=== PATIENT | female | born 1945 | race Caucasian/White ===

== ENCOUNTER 2019-04-16 14:42 | Emergency (ER) | payer MEDICARE, OTHER ==
--- NOTE | 2019-04-16 15:05 | ERPHSYRPT ---
- History of Present Illness Time Seen by Provider: 04/16/19 14:55 Source: patient, family Exam Limitations: no limitations Physician History: 73 y/o white female with h/o htn presents with one day h/o mild suprapubic pain , painful urination and urinary frequency. pt was a little dizzy earlier today. better now. Timing/Duration: yesterday Activites at Onset: none Quality: burning, pressure (suprapubic) Onset Location: suprapubic Pain Radiation: none Severity of Pain-Max: mild Severity of Pain-Current: mild Sexual intercourse history: non-contributory Modifying Factors: Improves With: nothing Associated Symptoms: dysuria, urinary frequency, other (mild dizziness that has resolved) Allergies/Adverse Reactions: No Known Drug Allergies Allergy (Verified 04/16/19 14:52) Home Medications: Carbamazepine 200 mg PO DAILY 06/26/13 [History] Chlorthalidone 25 mg PO DAILY 06/26/13 [History] Esomeprazole Magnesium [Nexium] 40 mg PO DAILY 06/26/13 [History] Meloxicam 7.5 mg [Mobic 7.5 MG] 7.5 mg PO BID 06/26/13 [History] Metoprolol Succinate 25 mg Xl* [Toprol-Xl 25MG Tablets] 25 mg PO DAILY [History] Potassium Chloride [Klor-Con 10] 10 meq PO BID 06/26/13 [History] Hx Tetanus, Diphtheria Vaccination/Date Given: No Hx Influenza Vaccination/Date Given: No Hx Pneumococcal Vaccination/Date Given: No - Review of Systems Constitutional: No Symptoms Eyes: No Symptoms Ears, Nose, & Throat: No Symptoms Respiratory: No Symptoms Cardiac: No Symptoms Abdominal/Gastrointestinal: No Symptoms Genitourinary Symptoms: Dysuria, Frequency Musculoskeletal: No Symptoms Skin: No Symptoms Neurological: No Symptoms Psychological: No Symptoms Endocrine: No Symptoms Hematologic/Lymphatic: No Symptoms Immunological/Allergic: No Symptoms All Other Systems: Reviewed and Negative - Past Medical History Pertinent Past Medical History: Yes Neurological History: Migraines ENT History: No Pertinent History Cardiac History: Hypertension, Other (history of low potassium) Respiratory History: No Pertinent History Endocrine Medical History: No Pertinent History Musculoskeletal History: No Pertinent History GI Medical History: Gallbladder Disease History: No Pertinent History Psycho-Social History: No Pertinent History Female Reproductive Disorders: Fibroids Other Medical History: BURSISTIS IN HIPS - Past Surgical History Past Surgical History: Yes Neuro Surgical History: No Pertinent History Cardiac: No Pertinent History Respiratory: No Pertinent History Gastrointestinal: Cholecystectomy Genitourinary: No Pertinent History Musculoskeletal: Joint Replacement, Orthopedic Surgery Female Surgical History: Hysterectomy Other Surgical History: KNEE REPLACEMENTS - Social History Smoking Status: Never smoker Exposure to second hand smoke: Yes Drug Use: none Patient Lives Alone: No - Nursing Vital Signs Nursing Vital Signs: Initial Vital Signs Temperature 97.3 F 04/16/19 14:44 Pulse Rate 100 H 04/16/19 14:44 Respiratory Rate 20 04/16/19 14:44 Blood Pressure 178/90 04/16/19 14:44 O2 Sat by Pulse Oximetry 97 04/16/19 14:44 Pain Scale Pain Intensity 4 - Physical Exam General Appearance: no apparent distress, alert, anxiety Eye Exam: PERRL/EOMI, eyes nml inspection Ears, Nose, Throat Exam: normal ENT inspection, moist mucous membranes Neck Exam: normal inspection, non-tender, supple, full range of motion Respiratory Exam: normal breath sounds, lungs clear, airway intact, No chest tenderness, No respiratory distress Cardiovascular Exam: regular rate/rhythm, normal heart sounds, normal peripheral pulses Gastrointestinal/Abdomen Exam: soft, normal bowel sounds, No tenderness Pelvic Exam: not done Rectal Exam: not done Back Exam: normal inspection, normal range of motion, CVA tenderness Extremity Exam: normal inspection, normal range of motion, pelvis stable Neurologic Exam: alert, oriented x 3, 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, 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 Skin Exam: normal color, warm, dry Lymphatic Exam: No adenopathy SpO2 Interpretation: normal O2 Delivery: Room Air Ordered Tests: Active Orders 24 hr Category Date Time Status CULTURE,URINE Stat Lab 04/16/19 15:10 Received UA W/RFX UR CULTURE Stat Lab 04/16/19 15:10 Completed Medication Summary Discontinued Medications Generic Name Dose Route Start Last Admin Trade Name Freq PRN Reason Stop Dose Admin Ceftriaxone Sodium 1,000 mg 04/16/19 15:49 Rocephin 1000 Mg Inj IM 04/16/19 15:50 STAT ONE Trimethoprim/Sulfamethoxazole 1 tab 04/16/19 15:49 Bactrim Ds Tablet PO 04/16/19 15:50 STAT ONE Lab/Rad Data: Laboratory Results 04/16/19 Range/Units 15:10 Urine Color SUSHIL (YELLOW) Urine Appearance SLIGHTLY CLOUDY (CLEAR) Urine pH 8.0 (5-6) Ur Specific [place] 1.008 (1.005-1.025) Urine Protein NEGATIVE (Negative) Urine Ketones NEGATIVE (NEGATIVE) Urine Blood MODERATE (0-5) Nicho/ul Urine Nitrite POSITIVE (NEGATIVE) Urine Bilirubin NEGATIVE (NEGATIVE) Urine Urobilinogen NEGATIVE (0-1) mg/dL Ur Leukocyte Esterase LARGE (NEGATIVE) Urine WBC (Auto) >100 (0-5) /HPF Urine RBC (Auto) 16-25 (0-2) /HPF U Epithel Cells (Auto) NONE (FEW) /HPF Urine Bacteria (Auto) FEW (NEGATIVE) /HPF Urine Culture Reflexed YES (NO) Urine Glucose NEGATIVE (NEGATIVE) mg/dL - Progress Progress: unchanged Air Movement: good Blood Culture(s) Obtained: No Antibiotics given: Yes Counseled pt/family regarding: lab results, diagnosis, need for follow-up - Departure Departure Disposition: Home Clinical Impression: UTI (urinary tract infection) Condition: Good Critical Care Time: No Referrals: MORGAN KUMAR MD [Primary Care Provider] - Additional Instructions: drink plenty of fluids. follow up with primary doctor for persistent symptoms. return to ED if symptoms worsen Prescriptions: Smz/Tmp Ds Tablet [Bactrim Ds Tablet] 1 udtab PO BID #20 tablet
[2019-04-16 15:35] LABS: Appearance SLIGHTLY CLOUDY (CLEAR); Bacteria FEW /HPF (NEGATIVE); Bilirubin NEGATIVE (NEGATIVE); Blood MODERATE Ery/ul (0-5); Glucose NEGATIVE (NEGATIVE); Ketones NEGATIVE (NEGATIVE); Leukocyte Esterase LARGE (NEGATIVE); Nitrite POSITIVE (NEGATIVE); Protein,Urine Dip NEGATIVE (Negative); Specific Gravity 1.008 (1.005-1.025); Urobilinogen NEGATIVE mg/dL (0-1); WBC >100 /HPF (0-5)
[2019-04-16] MEDS ORDERED: Rocephin 1000 MG INJ IM ONE (15:49)
[2019-04-16] MEDS ORDERED: BACTRIM DS TABLET PO ONE ×2 (15:49→15:56)
[2019-04-16] MEDS ORDERED: Rocephin 1000 MG INJ ONE (15:56)
[2019-04-16] MEDS ORDERED: XYLOCAINE 1% HCL 20 ML MDV ONE (15:57)
[2019-04-16 16:24] VITALS: BP 155/80; PULSE 88; O2SAT 97
== END 2019-04-16 16:23 | disposition home or self-care (01) ==
LOC: ED 14:42
DX: N39.0 Urinary tract infection, site not specified (principal); I10 Essential (primary) hypertension; R30.0 Dysuria; R10.9 Unspecified abdominal pain; R35.0 Frequency of micturition; Z79.899 Other long term (current) drug therapy; E87.6 Hypokalemia
CPT/HCPCS: 81001; 87077; 87086; 87186; 96372; 99284; J0696; A9270-GY

== ENCOUNTER 2019-06-26 10:09 | Day surgery (SDC) | payer MEDICARE, OTHER ==
[~2019-06-26 10:09] MED LIST: DIPRIVAN 200 MG/20 ML IV ONE; Ketamine HCl 50 MG/ML ONE
[2019-06-26] MEDS ORDERED: Depo-Medrol 40 MG/ML IM ONE (10:10)
[2019-06-26] MEDS ORDERED: Marcaine 0.5% SDV 10 ML IJ ONE (10:10)
--- NOTE | 2019-06-26 12:51 | XRAY ---
Indication: Left shoulder injection. Intraoperative fluoroscopy was provided for 22 seconds. 2 digital spot images submitted for interpretation demonstrates needle tip projecting over the left humeral head. Small amount of contrast injected for needle tip placement. Correlate with intraoperative findings/report.
--- NOTE | 2019-06-26 13:14 | XRAY ---
22 seconds fluoroscopy time in surgery for intra-articular and subacromial injections of the left shoulder.
[2019-06-26] MEDS ORDERED: Lactated Ringers 1,000 ML IV ONE (14:51)
== END 2019-06-26 11:05 | disposition home or self-care (01) ==
LOC: SDC-PAIN 10:09
PROVIDERS: ATTEND Psychiatry & Neurology Pain Medicine
DX: M19.012 Primary osteoarthritis, left shoulder (principal); M75.52 Bursitis of left shoulder; E11.9 Type 2 diabetes mellitus without complications; Z86.711 Personal history of pulmonary embolism; Z79.01 Long term (current) use of anticoagulants; Z79.899 Other long term (current) drug therapy
CPT/HCPCS: 20610; 73030; 77002; 82962; J1030; J2704; Q9966

== ENCOUNTER 2020-01-01 10:18 | Day surgery (SDC) | payer MEDICARE, OTHER ==
[2020-01-01] MEDS ORDERED: DIPRIVAN 200 MG/20 ML IV ONE (11:24)
[2020-01-01] MEDS ORDERED: Ketamine HCl 50 MG/ML ONE (11:24)
--- NOTE | 2020-01-01 14:10 | XRAY ---
Indication: Right shoulder and subacromial injection. Intraoperative fluoroscopy was provided for 42 seconds. 2 digital spot images submitted for interpretation demonstrates needle tip projecting right glenohumeral joint superiorly. Second needle tip projects subacromial. Small amount of contrast injected for both needle tip placement. Correlate with intraoperative findings/report.
--- NOTE | 2020-01-01 14:10 | XRAY ---
Indication: Left shoulder and subacromial injection. Intraoperative fluoroscopy was provided for 19 seconds. 2 digital spot images submitted for interpretation demonstrates needle tip projecting left glenohumeral joint superiorly. Second needle tip projects superior to the humeral head. Small amount of contrast injected for both needle tip placement. Correlate with intraoperative findings/report.
[2020-01-01] MEDS ORDERED: Lactated Ringers 1,000 ML IV ONE (14:25)
--- NOTE | 2020-01-01 15:02 | XRAY ---
19 seconds fluoroscopy time in surgery for left intra-articular and subacromial injections.
--- NOTE | 2020-01-01 15:02 | XRAY ---
42 seconds fluoroscopy time in surgery for right intra-articular and subacromial injections.
== END 2020-01-01 12:05 | disposition home or self-care (01) ==
LOC: SDC-PAIN 10:18
PROVIDERS: ATTEND Psychiatry & Neurology Pain Medicine
DX: M19.012 Primary osteoarthritis, left shoulder (principal); M19.011 Primary osteoarthritis, right shoulder; M75.52 Bursitis of left shoulder; M75.51 Bursitis of right shoulder; E11.9 Type 2 diabetes mellitus without complications; Z86.711 Personal history of pulmonary embolism; Z79.899 Other long term (current) drug therapy
CPT/HCPCS: 20610; 73030; 77002; 82962; J2704; Q9966

== ENCOUNTER 2020-08-19 09:05 | Day surgery (SDC) | payer MEDICARE, OTHER ==
[2020-08-19] MEDS ORDERED: Depo-Medrol 40 MG/ML IM ONE (09:06)
[2020-08-19] MEDS ORDERED: BUPIVACAINE 0.5% VIAL IJ ONE (09:06)
[2020-08-19] MEDS ORDERED: DIPRIVAN 200 MG/20 ML IV ONE (10:34)
[2020-08-19] MEDS ORDERED: Ketamine HCl 50 MG/ML ONE (10:34)
--- NOTE | 2020-08-19 12:37 | XRAY ---
Indication: Right shoulder injection. Intraoperative fluoroscopy was provided for 17 seconds. 2 digital spot image submitted for interpretation demonstrates needle tip projecting over the right glenohumeral joint superiorly. Small amount of contrast injected for needle tip placement. Correlate with intraoperative findings/report.
--- NOTE | 2020-08-19 12:47 | XRAY ---
Indication: Left shoulder injection. Intraoperative fluoroscopy was provided for 25 seconds. 2 digital spot image submitted for interpretation demonstrates needle tip projecting over the left glenohumeral joint superiorly. Small amount of contrast injected for needle tip placement. Correlate with intraoperative findings/report.
--- NOTE | 2020-08-19 12:53 | XRAY ---
17 seconds fluoroscopy time in surgery for intra-articular and subachromial injections of the right shoulder.
--- NOTE | 2020-08-19 13:21 | XRAY ---
25 seconds fluoroscopy time in surgery for intra-articular and subachromial injections of the left shoulder.
[2020-08-19] MEDS ORDERED: Lactated Ringers 1,000 ML IV ONE (13:50)
== END 2020-08-19 10:59 | disposition home or self-care (01) ==
LOC: SDC-PAIN 09:05
PROVIDERS: ATTEND Psychiatry & Neurology Pain Medicine
DX: M19.012 Primary osteoarthritis, left shoulder (principal); M19.011 Primary osteoarthritis, right shoulder; M75.52 Bursitis of left shoulder; M75.51 Bursitis of right shoulder; E11.9 Type 2 diabetes mellitus without complications; Z86.711 Personal history of pulmonary embolism; G50.0 Trigeminal neuralgia; Z79.899 Other long term (current) drug therapy
CPT/HCPCS: 20610; 73030; 77002; 82947; J1030; J2704; Q9966

== ENCOUNTER 2021-07-29 07:11 | Day surgery (SDC) | payer MEDICARE, OTHER ==
--- NOTE | 2021-07-23 11:19 | HP ---
DATE OF SURGERY: 07/29/2021 HISTORY OF PRESENT ILLNESS: The patient presents with atypical lesions of the right breast and forehead. 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 The lesions appear to be raised, crusted and small at this time. PAST MEDICAL HISTORY: Hypertension, reflux, neuropathy, bipolar. PAST SURGICAL HISTORY: Cholecystectomy. Knee replacement. Right hip. ALLERGIES: NKDA. MEDICATIONS: Metoprolol, Lasix, Nexium, carbamazepine, Lyrica. FAMILY HISTORY: None reported. SOCIAL HISTORY: None reported. REVIEW OF SYSTEMS: CONSTITUTIONAL: Denies fever or chills. CHEST: Denies shortness of breath. CVS: Denies chest pain. ABDOMEN: Denies abdominal pain. INTEGUMENTARY: Atypical skin lesions on the right breast and left forehead. PHYSICAL EXAMINATION: GENERAL: No acute distress. CHEST: Nonlabored. No shortness of breath. CVS: Regular rate and rhythm. ABDOMEN: Soft. INTEGUMENTARY: Atypical skin lesions of the right breast and 0.5 cm rough raised lesion of the left forehead. IMPRESSION: Atypical skin lesions of the right breast and left forehead. PLAN: Excision of right breast lesion x2 and forehead x1 with closure with Dr. Baldev Harris. As dictated by Sejal Guardado NP.
[~2021-07-29 07:11] MED LIST changes: -DIPRIVAN 200 MG/20 ML IV ONE; -Ketamine HCl 50 MG/ML ONE; +Lactated Ringers 1,000 ML IV SCH
[2021-07-29] MEDS ORDERED: Lactated Ringers 1,000 ML IV ONE (07:31)
[2021-07-29 08:21] LABS: ANION GAP 11.7 MEQ/L (5-15); BLOOD UREA NITROGEN 13 mg/dL (7-17); CHLORIDE 109 mmol/L (98-107); Calcium 8.8 mg/dL (8.4-10.2); Carbon Dioxide 24 mmol/L (22-30); Creatinine 1 0.62 mg/dL (0.52-1.04); EST GLOMERULAR FILTRATION RATE > 60.0 ML/MIN; Glucose 168 mg/dL (74-106); Potassium 3.8 mmol/L (3.5-5.1); SODIUM 141 mmol/L (137-145)
[2021-07-29] MEDS ORDERED: DIPRIVAN 200 MG/20 ML IV ONE (10:12)
[2021-07-29] MEDS ORDERED: SUBLIMAZE 100 MCG/2 ML ONE (10:12)
[2021-07-29] MEDS ORDERED: Versed 2 MG/2 ML Injection ONE (10:13)
[2021-07-29] MEDS ORDERED: KEFZOL 1 GM ONE (10:20)
[2021-07-29] MEDS ORDERED: PHENYLEPHRINE HCL ONE (10:46)
[2021-07-29] MEDS ORDERED: ULTRAM 50 MG PO ONE (12:05)
[2021-07-29] MEDS ORDERED: Toprol-Xl 25MG Tablets PO ONE (12:20)
--- NOTE | 2021-07-29 13:24 | OP ---
SURGERY DATE/TIME: 07/29/2021 1011 PREOPERATIVE DIAGNOSES: 1) Right breast skin lesion 1 cm at 3:00 and 1.5 cm at 1:00. 2) Left forehead 1.5 cm. POSTOPERATIVE DIAGNOSES: 1) Right breast skin lesion 1 cm at 3:00 and 1.5 cm at 1:00. 2) Left forehead 1.5 cm. PROCEDURE: Excision of these three areas and closure. SURGEON: Baldev Harris M.D. ANESTHESIA: Light general. COMPLICATIONS: None. CONDITION: Stable. INDICATION: The patient has three lesions. I believe all three of these had previous biopsies of low-grade squamous cell. Marked preoperatively. DESCRIPTION OF PROCEDURE: Taken to surgery. Routine prep and drape. On the right breast, the 1 cm area at 3:00 removed through a 2.5 cm elliptical excision with closure simple interrupted suture #4-0 Prolene. The 1.5 cm lesion at 1:00 was removed through 2.5 cm elliptical excision with closure #4-0 Prolene. The forehead lesion was then taken in a tripod-type fashion with the transverse portion above and the vertical portion below about a 1.5 cm lesion through a 2.5 cm tripod incision with closure. Sterile ointment applied. They were sent as three separate specimens. The patient tolerated the procedure satisfactorily.
[2021-07-29] MEDS ORDERED: APRESOLINE 20 MG/ML INJ ONE (13:43)
[2021-07-29] MEDS ORDERED: APRESOLINE 20 MG/ML INJ IV ONE (13:45)
[2021-07-29 14:52] VITALS: O2SAT 95
[2021-07-29 15:04] VITALS: BP 163/85; PULSE 84
[2021-07-30] MEDS ORDERED: Triple Antibiotic Ointment TP ONE (11:15)
[2021-07-30] MEDS ORDERED: Sensorcaine 0.25% 10 ML IJ ONE (11:15)
[2021-07-30] MEDS ORDERED: SUBLIMAZE 100 MCG/2 ML IJ ONE (11:15)
== END 2021-07-29 15:20 | disposition home or self-care (01) ==
LOC: SDC 07:11
PROVIDERS: ATTEND Surgery
DX: D05.91 Unspecified type of carcinoma in situ of right breast (principal); Z85.3 Personal history of malignant neoplasm of breast; L82.1 Other seborrheic keratosis; I10 Essential (primary) hypertension
CPT/HCPCS: 36415; 80048; 93005; 99100; J0360; J0690; J2250; J2370; J2704; J3010; A9270-GY

== ENCOUNTER 2023-01-09 12:51 | Observation (INO) | payer MEDICARE, OTHER ==
--- NOTE | 2023-01-09 14:34 | ERPHSYRPT ---
- History of Present Illness Historian: patient, other () Exam Limitations: no limitations Patient Subjective Stated Complaint: abdominal pain and diarrhea Triage Nursing Assessment: Patient reports to ER with complaints of abdominal pain rating pain 8/10 at this time to her upper abdomen. Upper abdomen tender with palpation. Patient denies taking any pain medication at home prior to coming to the ER. Patient states that she has been having diarrhea for about 3 weeks now. Patient states diarrhea started out black in color for a few days then brown with bright red blood. Patient states that her stool this morning was loose and brown with no blood noted. No stool assessed by this nurse at this time. Patient reports mild nausea but denies vomiting. Patient states she has had a poor appetite and isnt drinking much. Patient feels weak. Physician History: 77 yo wf w diarrhea/epigastric pain/nausea x 3 wks. Pt has seen Dr. Kumar and has completed a course of cipro. Pain is 6/10 and described as an ache. It gets worse w food. She had melena/hematochezia earlier in the disease process which has resolved. Pt denies chest pain/fever/cough/dysuria/hematuria. She has a PMH of DM/HTN and has had a james/tahbso/appy in the past. Timing/Duration: other (3 wks) Quality: aching Abdominal Pain Onset Location: epigastric Pain Radiation: no radiation Severity of Pain-Max: severe Severity of Pain-Current: moderate Modifying Factors: Improves With: eating (Worse w food) Associated Symptoms: diarrhea, nausea Previous symptoms: no prior history Allergies/Adverse Reactions: No Known Drug Allergies Allergy (Verified 01/09/23 13:43) Home Medications: Esomeprazole Magnesium [Nexium] 40 mg PO DAILY 06/26/13 [History] Metoprolol Succinate 25 mg Xl* [Toprol-Xl 25MG Tablets] 25 mg PO DAILY 06/26/13 [History] Potassium Chloride [Klor-Con 10] 10 meq PO DAILY 06/26/13 [History] carBAMazepine [Carbamazepine] 200 mg PO BID 06/26/13 [History] Pregabalin [Lyrica 150Mg] 200 mg PO BID 05/27/20 [History] Losartan Potassium 50 mg [Cozaar 50 MG] 50 mg PO HS 01/09/23 [History] Metformin HCl 500 mg [Glucophage 500 MG] 500 mg PO HS 01/09/23 [History] Hx Tetanus, Diphtheria Vaccination/Date Given: No Hx Influenza Vaccination/Date Given: Yes Hx Pneumococcal Vaccination/Date Given: Yes Immunizations Up to Date: Yes Travel Risk - International Travel Have you traveled outside of the country in past 3 weeks: No - Coronavirus Screening Close contact with a COVID-19 positive Pt in past 14-21 Days: No - Vaccine Status Have you recieved a Covid-19 vaccination: Yes Bulb Packer: Unknown - Vaccination Dates Dates if Unknown: unknown - Review of Systems Constitutional: No Symptoms Eyes: No Symptoms Ears, Nose, & Throat: No Symptoms Respiratory: No Symptoms Cardiac: No Symptoms Abdominal/Gastrointestinal: No Symptoms, Abdominal Pain, Nausea, Diarrhea Genitourinary Symptoms: No Symptoms Musculoskeletal: No Symptoms Skin: No Symptoms Neurological: No Symptoms Psychological: No Symptoms Endocrine: No Symptoms Hematologic/Lymphatic: No Symptoms Immunological/Allergic: No Symptoms - Past Medical History Pertinent Past Medical History: Yes Neurological History: Migraines ENT History: No Pertinent History Cardiac History: Deep Vein Thrombosis, Hypertension, Other Respiratory History: No Pertinent History, Pulmonary Embolism Endocrine Medical History: No Pertinent History, Diabetes Type II Musculoskeletal History: No Pertinent History GI Medical History: GERD, Gallbladder Disease History: No Pertinent History Psycho-Social History: No Pertinent History Female Reproductive Disorders: Fibroids Other Medical History: BURSISTIS IN HIPS, trigeminal neuralgia to eyes/nasa/head area - Past Surgical History Past Surgical History: Yes Neuro Surgical History: No Pertinent History Cardiac: No Pertinent History Respiratory: No Pertinent History Gastrointestinal: Cholecystectomy Genitourinary: No Pertinent History Musculoskeletal: Joint Replacement, Orthopedic Surgery Female Surgical History: Hysterectomy, Other Other Surgical History: KNEE REPLACEMENTS bilateral, right hip replacement, ovary removed, 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 - Social History Smoking Status: Former smoker How long have you smoked: 2-3 yrs Exposure to second hand smoke: Yes Drug Use: none Patient Lives Alone: No Significant Family History: no pertinent family hx - Nursing Vital Signs Nursing Vital Signs: Initial Vital Signs Pulse Rate 75 01/09/23 13:41 Respiratory Rate 19 01/09/23 13:41 Blood Pressure 186/91 01/09/23 13:41 O2 Sat by Pulse Oximetry 98 01/09/23 13:41 Pain Scale Pain Intensity 0 Hypertensive - Physical Exam General Appearance: no apparent distress Eye Exam: PERRL/EOMI, eyes nml inspection Ears, Nose, Throat Exam: normal ENT inspection, TMs normal, pharynx normal, moist mucous membranes Neck Exam: normal inspection, non-tender, supple, full range of motion, No meningismus, No mass, No Brudzinski, No Kernig's, No carotid bruit Respiratory Exam: normal breath sounds, lungs clear, airway intact, No respiratory distress Cardiovascular Exam: regular rate/rhythm, normal heart sounds, normal peripheral pulses, capillary refill <2 sec, No murmur Gastrointestinal/Abdomen Exam: soft, normal bowel sounds, tenderness (Mod epigastric TTP wo guarding or rebound) Extremity Exam: normal inspection, normal range of motion Neurologic Exam: alert, oriented x 3, cooperative, 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, normal mood/affect, sensation nml Skin Exam: normal color, warm, dry Lymphatic Exam: No adenopathy SpO2 Interpretation: normal SpO2: 95 O2 Delivery: Room Air - Course Nursing assessment & vital signs reviewed: Yes EKG Interpreted by Me: RATE (NSR/Rate 70/Normal QT-QTc/RBBB/Nonspecific ST changes) - CT Exams Abdomen/Pelvis CT Interpretation: Discussed w/radiologist (Nothing acute) Ordered Tests: Active Orders 24 hr Category Date Time Status Call Admit Doctor for Orders ON ADMISSION Care 01/09/23 17:56 Active Code Status Order ROUTINE Care 01/09/23 17:56 Active EKG-ER Only STAT Care 01/09/23 14:29 Active IV Insertion STAT Care 01/09/23 14:[address] in Observation ROUTINE Care 01/09/23 17:56 Active Clear Liquid Diet 01/10/23 Breakfast Active ABDOMEN AND PELVIS W/0 CONTRAS [CT] Stat Exams 01/09/23 14:27 Completed AMYLASE Stat Lab 01/09/23 14:20 Completed BLOOD CULTURE Stat Lab 01/09/23 Ordered CBC W DIFF Stat Lab 01/09/23 14:20 Completed CMP Stat Lab 01/09/23 14:20 Completed CULTURE,URINE Stat Lab 01/09/23 14:04 Received LIPASE Stat Lab 01/09/23 14:20 Completed Lactic Acid Stat Lab 01/09/23 14:32 Completed Lactic Acid Stat Lab 01/09/23 16:34 Received TROPONIN Q4H Lab 01/09/23 14:20 Completed TROPONIN Q4H Lab 01/09/23 18:30 Ordered TROPONIN Q4H Lab 01/09/23 22:30 Ordered UA W/RFX UR CULTURE Stat Lab 01/09/23 14:04 Completed Transfer Order Routine Transfer 01/09/23 Ordered Medication Summary Generic Name Dose Route Start Last Admin Trade Name Freq PRN Reason Stop Dose Admin Piperacillin Sod/Tazobactam 100 mls @ 200 mls/hr 01/09/23 17:53 01/09/23 18: 00 Sod 3.375 gm/ Sodium Chloride IV 01/09/23 18:22 200 mls/hr STAT ONE Administration Discontinued Medications Generic Name Dose Route Start Last Admin Trade Name Freq PRN Reason Stop Dose Admin Sodium Chloride 1,000 mls @ 999 mls/hr 01/09/23 16:08 01/09/23 17:24 Sodium Chloride 0.9% 1000 Ml IV 01/09/23 17:08 Infused .Q1H1M STA Infusion Sodium Chloride Confirm 01/09/23 16:19 Sodium Chloride 0.9% 1000 Ml Administered 01/09/23 16:20 Dose 1,000 mls @ ud .ROUTE .STK-MED ONE Sodium Chloride Confirm 01/09/23 17:56 Sodium Chloride 100ml Mini-Bag Plus Administered 01/09/23 17:57 Dose 100 mls @ ud IV .STK-MED ONE Piperacillin Sod/Tazobactam Sod Confirm 01/09/23 17:56 Piperacillin/Tazobactam Sodium 3.375 Gm Vial Administered 01/09/23 17:57 Dose 3.375 gm IV .STK-MED ONE Lab/Rad Data: Laboratory Result Diagrams 01/09/23 14:20 01/09/23 14:20 Laboratory Results 01/09/23 01/09/23 01/09/23 Range/Units 14:32 14:20 14:20 WBC (4.0-10.5) x10^3/uL RBC (4.1-5.4) x10^6/uL Hgb (12.0-16.0) g/dL Hct (35-47) % MCV (78-100) fL MCH (26-32) pg MCHC (32-36) g/dL RDW (11.5-14.0) % Plt Count (150-450) x10^3/uL MPV (7.5-11.0) fL Gran % (36.0-66.0) % Immature Gran % (Auto) (0.00-0.4) % Nucleat RBC Rel Count (0.00-0.1) % Eos # (Auto) (0-0.5) x10^3/uL Immature Gran # (Auto) (0.00-0.03) x10^3u/L Absolute Lymphs (auto) (1.0-4.6) x10^3/uL Absolute Monos (auto) (0.0-1.3) x10^3/uL Absolute Nucleated RBC (0.00-0.01) x10^3u/L Lymphocytes % (24.0-44.0) % Monocytes % (0.0-12.0) % Eosinophils % (0.00-5.0) % Basophils % (0.0-0.4) % Absolute Granulocytes (1.4-6.9) x10^3/uL Basophils # (0-0.4) x10^3/uL Sodium (137-145) mmol/L Potassium (3.5-5.1) mmol/L Chloride (98-107) mmol/L Carbon Dioxide (22-30) mmol/L Anion Gap (5-15) MEQ/L BUN (7-17) mg/dL Creatinine (0.52-1.04) mg/dL Estimated GFR ML/MIN Glucose (74-106) mg/dL Lactic Acid 2.3 H (0.4-2.0) Calcium (8.4-10.2) mg/dL Total Bilirubin (0.2-1.3) mg/dL AST (14-36) U/L ALT (0-35) U/L Alkaline Phosphatase (38-126) U/L Troponin I < 0.012 (0.000-0.034) ng/mL Serum Total Protein (6.3-8.2) g/dL Albumin (3.5-5.0) g/dL Amylase (30-110) U/L Lipase (23-300) U/L Urine Color (Yellow) Urine Appearance (Clear) Urine pH (4.6-8.0) Ur Specific [place] (1.005-1.030) Urine Protein (Negative) Urine Glucose (UA) (Negative) mg/dL Urine Ketones (Negative) Urine Blood (Negative) Urine Nitrite (Negative) Urine Bilirubin (Negative) Urine Urobilinogen (0.2) mg/dL Ur Leukocyte Esterase (Negative) U Hyaline Cast (Auto) (0-2) /LPF Urine Microscopic RBC (0-5) /HPF Urine Microscopic WBC (0-5) /HPF Ur Epithelial Cells (None Seen) /HPF Urine Bacteria (None Seen) /HPF Urine Culture Reflexed (NO) Influenza Type A Ag NEGATIVE (NEGATIVE) Influenza Type B Ag NEGATIVE (NEGATIVE) RSV (PCR) NEGATIVE (NEGATIVE) SARS-CoV-2 (PCR) NEGATIVE (NEGATIVE) 01/09/23 01/09/23 01/09/23 Range/Units 14:20 14:20 14:04 WBC 6.3 (4.0-10.5) x10^3/uL RBC 5.11 (4.1-5.4) x10^6/uL Hgb 14.4 (12.0-16.0) g/dL Hct 44.8 (35-47) % MCV 87.7 (78-100) fL MCH 28.2 (26-32) pg MCHC 32.1 (32-36) g/dL RDW 13.5 (11.5-14.0) % Plt Count 240 (150-450) x10^3/uL MPV 9.1 (7.5-11.0) fL Gran % 59.3 (36.0-66.0) % Immature Gran % (Auto) 0.5 H (0.00-0.4) % Nucleat RBC Rel Count 0.0 (0.00-0.1) % Eos # (Auto) 0.08 (0-0.5) x10^3/uL Immature Gran # (Auto) 0.03 (0.00-0.03) x10^3u/L Absolute Lymphs (auto) 1.92 (1.0-4.6) x10^3/uL Absolute Monos (auto) 0.48 (0.0-1.3) x10^3/uL Absolute Nucleated RBC 0.00 (0.00-0.01) x10^3u/L Lymphocytes % 30.5 (24.0-44.0) % Monocytes % 7.6 (0.0-12.0) % Eosinophils % 1.3 (0.00-5.0) % Basophils % 0.8 (0.0-0.4) % Absolute Granulocytes 3.73 (1.4-6.9) x10^3/uL Basophils # 0.05 (0-0.4) x10^3/uL Sodium 140 (137-145) mmol/L Potassium 4.4 (3.5-5.1) mmol/L Chloride 103 (98-107) mmol/L Carbon Dioxide 24 (22-30) mmol/L Anion Gap 16.5 H (5-15) MEQ/L BUN 20 H (7-17) mg/dL Creatinine 0.86 (0.52-1.04) mg/dL Estimated GFR > 60.0 ML/MIN Glucose 126 H (74-106) mg/dL Lactic Acid (0.4-2.0) Calcium 9.5 (8.4-10.2) mg/dL Total Bilirubin 0.40 (0.2-1.3) mg/dL AST 26 (14-36) U/L ALT 28 (0-35) U/L Alkaline Phosphatase 157 H (38-126) U/L Troponin I (0.000-0.034) ng/mL Serum Total Protein 7.4 (6.3-8.2) g/dL Albumin 4.6 (3.5-5.0) g/dL Amylase 77 (30-110) U/L Lipase 193 (23-300) U/L Urine Color Dark Yellow A (Yellow) Urine Appearance Cloudy A (Clear) Urine pH 5.0 (4.6-8.0) Ur Specific [place] 1.025 (1.005-1.030) Urine Protein 30 (Negative) Urine Glucose (UA) Negative (Negative) mg/dL Urine Ketones Trace A (Negative) Urine Blood Trace (Negative) Urine Nitrite Negative (Negative) Urine Bilirubin Small A (Negative) Urine Urobilinogen 0.2 (0.2) mg/dL Ur Leukocyte Esterase Large A (Negative) U Hyaline Cast (Auto) 11-20 (0-2) /LPF Urine Microscopic RBC 6-10 A (0-5) /HPF Urine Microscopic WBC >100 A (0-5) /HPF Ur Epithelial Cells Many A (None Seen) /HPF Urine Bacteria None Seen (None Seen) /HPF Urine Culture Reflexed YES (NO) Influenza Type A Ag (NEGATIVE) Influenza Type B Ag (NEGATIVE) RSV (PCR) (NEGATIVE) SARS-CoV-2 (PCR) (NEGATIVE) - Progress Progress Note: 01/09/23 17:54 Nursing note and vital signs reviewed No food or housing insecurities noted Additional history per 1L NS bolus All lab results reviewed and shared w pt CT result reviewed and shared w pt Obs per Dr. Moran/Wants to start Zosyn Blood cultures x2 before Zosyn 01/09/23 17:55 01/09/23 18:03 Pt is a full code 01/09/23 18:04 Pt w Obs admit for hydration/IV antibiotics/stool studies Counseled pt/family regarding: lab results, diagnosis, rad results Medical Desision Making - Independent Historian Additional History obtained from: Spouse - Diagnostic Testing Diagnostic test were ordered, analyzed, and reviewed by me: Yes Radiological Interpretation: Reviewed by me - Risk of complications The pt has a high risk of morbidity or mortality based on: Decision regarding hospitilization or escalation of hosp level of care - Departure Departure Disposition: Observation Clinical Impression: UTI (urinary tract infection), Diarrhea Condition: Stable Critical Care Time: No Referrals: MORGAN KUMAR MD [Primary Care Provider] - Follow up/PCP as directed
[2023-01-09 15:01] LABS: Absolute Neutrophil Ct (ANC) 3.73 x10^3/uL (1.4-6.9); BASOPHIL % 0.8 % (0.0-0.4); Basophil (Absolute #) 0.05 x10^3/uL (0-0.4); Eosinophil % 1.3 % (0.00-5.0); Eosinophil (Absolute #) 0.08 x10^3/uL (0-0.5); Hematocrit 44.8 % (35-47); Hemoglobin 14.4 g/dL (12.0-16.0); IMMATURE GRAN # 0.03 x10^3u/L (0.00-0.03); IMMATURE GRAN % 0.5 % (0.00-0.4); Lymphocyte (Absolute #) 1.92 x10^3/uL (1.0-4.6); Lymphocytes % 30.5 % (24.0-44.0); Mean Cell Volume 87.7 fL (78-100); Mean Corpuscular Hemoglobin 28.2 pg (26-32); Mean Corpuscular Hgb Concent. 32.1 g/dL (32-36); Mean Platelet Volume 9.1 fL (7.5-11.0); Monocyte (Absolute #) 0.48 x10^3/uL (0.0-1.3); Monocytes % 7.6 % (0.0-12.0); Neutrophil % 59.3 % (36.0-66.0); Platelet Count 240 x10^3/uL (150-450); Red Blood Count 5.11 x10^6/uL (4.1-5.4); Red Cell Distribution Width 13.5 % (11.5-14.0); White Blood Count 6.3 x10^3/uL (4.0-10.5)
[2023-01-09 15:15] LABS: ALBUMIN 4.6 g/dL (3.5-5.0); ALKALINE PHOSPHATASE 157 U/L (38-126); AMYLASE 77 U/L (30-110); ANION GAP 16.5 MEQ/L (5-15); BLOOD UREA NITROGEN 20 mg/dL (7-17); CHLORIDE 103 mmol/L (98-107); Calcium 9.5 mg/dL (8.4-10.2); Carbon Dioxide 24 mmol/L (22-30); Creatinine 1 0.86 mg/dL (0.52-1.04); EST GLOMERULAR FILTRATION RATE > 60.0 ML/MIN; Glucose 126 mg/dL (74-106); LIPASE 193 U/L (23-300); Potassium 4.4 mmol/L (3.5-5.1); SGOT/AST 26 U/L (14-36); SGPT/ALT 28 U/L (0-35); SODIUM 140 mmol/L (137-145); Total Protein 7.4 g/dL (6.3-8.2)
--- NOTE | 2023-01-09 15:17 | XRAY ---
Indication: Abdominal pain and diarrhea 3 weeks. Multiple contiguous axial images obtained through the abdomen and pelvis without contrast. Comparison: None Lung bases demonstrates minimal dependent atelectasis and tiny left base calcified granuloma. Heart not enlarged. Noncontrasted stomach and bowel loops appear nonobstructed with minimal sigmoid diverticulosis without diverticulitis. A few bilateral renal cysts, largest right lower kidney measuring 5.2 cm. Previous cholecystectomy. No free fluid/air. Remaining liver, pancreas, spleen, adrenal glands, kidneys, ureters, and bladder are unremarkable for noncontrast exam. Minimal aortic calcifications without AAA. Osseous structures intact with osteopenia, mild/moderate degenerative changes throughout the spine, and partially visualized right total hip arthroplasty. Impression: 1. Minimal sigmoid diverticulosis, bilateral renal cysts, chronic bony findings, arteriosclerotic disease, and old granulomatous disease. 2. Remaining CT abdomen/pelvis without contrast exam is negative.
[2023-01-09 15:37] LABS: INFLUENZA A NEGATIVE (NEGATIVE); INFLUENZA B NEGATIVE (NEGATIVE); RESPIRATORY SYNCTIAL VIRUS NEGATIVE (NEGATIVE); SARS-CoV-2 Xpert Express NEGATIVE (NEGATIVE)
[2023-01-09] MEDS ORDERED: Sodium Chloride 0.9% 1000 ML 1,000 ML IV STA (16:08)
[2023-01-09] MEDS ORDERED: Sodium Chloride 0.9% 1000 ML 1,000 ML ONE (16:19)
[2023-01-09 16:45] LABS: Appearance Cloudy (Clear); Bacteria None Seen /HPF (None Seen); Bilirubin Small (Negative); Blood Trace (Negative); Epithelial Cells Many /HPF (None Seen); Glucose, Urine Negative (Negative); Ketones Trace (Negative); Leukocyte Esterase Large (Negative); Nitrite Negative (Negative); Protein,Urine Dip 30 (Negative); Specific Gravity 1.025 (1.005-1.030); Urobilinogen 0.2 mg/dL (0.2); WBC >100 /HPF (0-5)
[2023-01-09 16:54] LABS: ADD URINE CULTURE? YES (NO)
[2023-01-09] MEDS ORDERED: PIPERACILLIN/TAZOBACTAM 3.375 GM in Sodium Chloride 100ML MINI-BAG PLUS 100 ML IV ONE (17:53)
[2023-01-09] MEDS ORDERED: PIPERACILLIN/TAZOBACTAM IV ONE (17:56)
[2023-01-09] MEDS ORDERED: Sodium Chloride 100ML MINI-BAG PLUS 100 ML IV ONE (17:56)
[2023-01-09] MEDS ORDERED: TYLENOL 325 MG PO PRN (20:37)
[2023-01-09] MEDS ORDERED: Zofran 4 MG/2 ML VIAL IV PRN (20:37)
[2023-01-09] MEDS ORDERED: Zithromax 250 MG TABLET PO SCH (20:49)
--- NOTE | 2023-01-09 20:58 | PCM.HP ---
History of Present Illness - Chief Complaint Chief Complaint: UTI, Dehydration Date: 01/09/23 History of Present Illness: This is a 77-year-old female admitted for persistent diarrhea. She has past medical history of GERD, hypertension, diabetes. She presented to the ED for complaints of abdominal pain and diarrhea for 3 weeks. She reports initially feeling fatigued and overall not well and then several days after developed diarrhea. She describes 2-3 episodes of watery diarrhea daily she reports initially was black in color but that has resolved. She has completed a course of ciprofloxacin with some improvement in her diarrhea but since stopping it 3 days ago she feels the diarrhea has again worsened. She complains of feeling very fatigued and dehydrated and today she thinks she passed out while taking a shower. She also reports poor p.o. intake due to constant nausea and mid abdominal discomfort which is chronic but does worsen when she eats. She denies any urinary tract infection symptoms. Initial vital signs heart rate 75 respirations 19 blood pressure 186/91 sat 98% on room air no temperature has been recorded. Labs significant for WBC 6.3, hemoglobin 14.4, platelets 240 within normal differential; sodium 140, BUN 20, lipase 193, AST 26, ALT 28, UA with trace ketones, small bili, large leukocyte esterases, more than 100 WBCs and many epithelial cells no bacteria. COVID, RSV, influenza were negative. CT abdomen pelvis was performed that showed minimal sigmoid diverticulosis, bilateral renal cyst, chronic bony findings, arteriosclerotic disease and old granulomatous disease. In the ED she was given a liter of normal saline and a dose of Zosyn. - Review of Systems Constitutional: Fatigue, Lethargy, Malaise, Weakness Eyes: No Symptoms Ears, Nose, & Throat: No Symptoms Respiratory: No Symptoms Cardiac: No Symptoms Abdominal/Gastrointestinal: Abdominal Pain, Nausea, Diarrhea Genitourinary Symptoms: No Symptoms Musculoskeletal: No Symptoms Skin: No Symptoms Neurological: No Symptoms Psychological: No Symptoms Endocrine: No Symptoms Hematologic/Lymphatic: No Symptoms Immunological/Allergic: No Symptoms Medications & Allergies Home Medications: Home Medication List Esomeprazole Magnesium [Nexium] 40 mg PO DAILY 06/26/13 [History Confirmed 01/09/23] Metoprolol Succinate 25 mg Xl* [Toprol-Xl 25MG Tablets] 25 mg PO DAILY 06/26/13 [History Confirmed 01/09/23] Potassium Chloride [Klor-Con 10] 10 meq PO DAILY 06/26/13 [History Confirmed 01/09/23] carBAMazepine [Carbamazepine] 200 mg PO BID 06/26/13 [History Confirmed 01/09/23] Pregabalin [Lyrica 150Mg] 200 mg PO BID 05/27/20 [History Confirmed 01/09/23] Rivaroxaban [Xarelto] 20 mg PO DAILY #0 07/29/21 [Rx Confirmed 01/09/23] Losartan Potassium 50 mg [Cozaar 50 MG] 50 mg PO HS 01/09/23 [History Confirmed 01/09/23] Metformin HCl 500 mg [Glucophage 500 MG] 500 mg PO HS 01/09/23 [History Confirmed 01/09/23] Allergies/Adverse Reactions: Allergies Allergy/AdvReac Type Severity Reaction Status Date / Time No Known Drug Allergies Allergy Verified 01/09/23 13:43 - Past Medical History Past Medical History: Yes Neurological History: Migraines ENT History: No Pertinent History Cardiac History: Deep Vein Thrombosis, Hypertension, Other Respiratory History: No Pertinent History, Pulmonary Embolism Endocrine Medical History: No Pertinent History, Diabetes Type II Musculoskelatal History: No Pertinent History GI Medical History: GERD, Gallbladder Disease History: No Pertinent History Pyscho-Social History: No Pertinent History Reproductive Disorders: Fibroids Comment: BURSISTIS IN HIPS, trigeminal neuralgia to eyes/nasa/head area - Female History Are you now?: No - Past Surgical History Past Surgical History: Yes Neuro Surgical History: No Pertinent History Cardiac History: No Pertinent History Respiratory Surgery: No Pertinent History GI Surgical History: Cholecystectomy Genitourinary Surgical Hx: No Pertinent History Musculskeletal Surgical Hx: Joint Replacement, Orthopedic Surgery Female Surgical History: Hysterectomy, Other Other Surgical History: KNEE REPLACEMENTS bilateral, right hip replacement, ovary removed, 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 - Social History Smoking Status: Former smoker How long have you smoked: 2-3 yrs Exposure to second hand smoke: Yes Alcohol: None Drug Use: none Significant Family History: no pertinent family hx - Physical Exam Vital Signs: Vital Signs - 24 hr Temp Pulse Resp BP BP Pulse Ox 01/09/23 19:44 97.3 F 88 17 183/86 98 01/09/23 18:27 97.7 F 87 18 171/73 98 01/09/23 18:15 97.7 F 87 18 171/73 98 01/09/23 18:04 95 01/09/23 17:00 91 H 22 179/76 97 01/09/23 16:30 86 19 166/80 93 L 01/09/23 16:00 85 19 150/80 01/09/23 15:30 79 19 163/77 96 01/09/23 15:11 79 16 157/73 97 01/09/23 15:10 82 16 157/73 96 01/09/23 14:56 158/82 01/09/23 14:00 75 16 141/75 141/75 96 01/09/23 13:41 75 19 186/91 98 General Appearance: no apparent distress Neurologic Exam: alert, oriented x 3 Eye Exam: PERRL/EOMI Ears, Nose, Throat Exam: normal ENT inspection, moist mucous membranes Neck Exam: normal inspection Respiratory Exam: normal breath sounds Cardiovascular Exam: regular rate/rhythm Gastrointestinal/Abdomen Exam: soft, distention Extremity Exam: normal inspection Skin Exam: normal color Results - Labs Lab/Micro Results: Lab Results-Last 24 Hours 01/09/23 01/09/23 01/09/23 Range/Units 14:04 14:20 14:20 WBC 6.3 (4.0-10.5) x10^3/uL RBC 5.11 (4.1-5.4) x10^6/uL Hgb 14.4 (12.0-16.0) g/dL Hct 44.8 (35-47) % MCV 87.7 (78-100) fL MCH 28.2 (26-32) pg MCHC 32.1 (32-36) g/dL RDW 13.5 (11.5-14.0) % Plt Count 240 (150-450) x10^3/uL MPV 9.1 (7.5-11.0) fL Gran % 59.3 (36.0-66.0) % Immature Gran % (Auto) 0.5 H (0.00-0.4) % Nucleat RBC Rel Count 0.0 (0.00-0.1) % Eos # (Auto) 0.08 (0-0.5) x10^3/uL Immature Gran # (Auto) 0.03 (0.00-0.03) x10^3u/L Absolute Lymphs (auto) 1.92 (1.0-4.6) x10^3/uL Absolute Monos (auto) 0.48 (0.0-1.3) x10^3/uL Absolute Nucleated RBC 0.00 (0.00-0.01) x10^3u/L Lymphocytes % 30.5 (24.0-44.0) % Monocytes % 7.6 (0.0-12.0) % Eosinophils % 1.3 (0.00-5.0) % Basophils % 0.8 (0.0-0.4) % Absolute Granulocytes 3.73 (1.4-6.9) x10^3/uL Basophils # 0.05 (0-0.4) x10^3/uL Sodium 140 (137-145) mmol/L Potassium 4.4 (3.5-5.1) mmol/L Chloride 103 (98-107) mmol/L Carbon Dioxide 24 (22-30) mmol/L Anion Gap 16.5 H (5-15) MEQ/L BUN 20 H (7-17) mg/dL Creatinine 0.86 (0.52-1.04) mg/dL Estimated GFR > 60.0 ML/MIN Glucose 126 H (74-106) mg/dL Lactic Acid (0.4-2.0) Calcium 9.5 (8.4-10.2) mg/dL Total Bilirubin 0.40 (0.2-1.3) mg/dL AST 26 (14-36) U/L ALT 28 (0-35) U/L Alkaline Phosphatase 157 H (38-126) U/L Troponin I (0.000-0.034) ng/mL Serum Total Protein 7.4 (6.3-8.2) g/dL Albumin 4.6 (3.5-5.0) g/dL Amylase 77 (30-110) U/L Lipase 193 (23-300) U/L Urine Color Dark Yellow A (Yellow) Urine Appearance Cloudy A (Clear) Urine pH 5.0 (4.6-8.0) Ur Specific [place] 1.025 (1.005-1.030) Urine Protein 30 (Negative) Urine Glucose (UA) Negative (Negative) mg/dL Urine Ketones Trace A (Negative) Urine Blood Trace (Negative) Urine Nitrite Negative (Negative) Urine Bilirubin Small A (Negative) Urine Urobilinogen 0.2 (0.2) mg/dL Ur Leukocyte Esterase Large A (Negative) U Hyaline Cast (Auto) 11-20 (0-2) /LPF Urine Microscopic RBC 6-10 A (0-5) /HPF Urine Microscopic WBC >100 A (0-5) /HPF Ur Epithelial Cells Many A (None Seen) /HPF Urine Bacteria None Seen (None Seen) /HPF Urine Culture Reflexed YES (NO) Influenza Type A Ag (NEGATIVE) Influenza Type B Ag (NEGATIVE) RSV (PCR) (NEGATIVE) SARS-CoV-2 (PCR) (NEGATIVE) 01/09/23 01/09/23 01/09/23 Range/Units 14:20 14:20 14:32 WBC (4.0-10.5) x10^3/uL RBC (4.1-5.4) x10^6/uL Hgb (12.0-16.0) g/dL Hct (35-47) % MCV (78-100) fL MCH (26-32) pg MCHC (32-36) g/dL RDW (11.5-14.0) % Plt Count (150-450) x10^3/uL MPV (7.5-11.0) fL Gran % (36.0-66.0) % Immature Gran % (Auto) (0.00-0.4) % Nucleat RBC Rel Count (0.00-0.1) % Eos # (Auto) (0-0.5) x10^3/uL Immature Gran # (Auto) (0.00-0.03) x10^3u/L Absolute Lymphs (auto) (1.0-4.6) x10^3/uL Absolute Monos (auto) (0.0-1.3) x10^3/uL Absolute Nucleated RBC (0.00-0.01) x10^3u/L Lymphocytes % (24.0-44.0) % Monocytes % (0.0-12.0) % Eosinophils % (0.00-5.0) % Basophils % (0.0-0.4) % Absolute Granulocytes (1.4-6.9) x10^3/uL Basophils # (0-0.4) x10^3/uL Sodium (137-145) mmol/L Potassium (3.5-5.1) mmol/L Chloride (98-107) mmol/L Carbon Dioxide (22-30) mmol/L Anion Gap (5-15) MEQ/L BUN (7-17) mg/dL Creatinine (0.52-1.04) mg/dL Estimated GFR ML/MIN Glucose (74-106) mg/dL Lactic Acid 2.3 H (0.4-2.0) Calcium (8.4-10.2) mg/dL Total Bilirubin (0.2-1.3) mg/dL AST (14-36) U/L ALT (0-35) U/L Alkaline Phosphatase (38-126) U/L Troponin I < 0.012 (0.000-0.034) ng/mL Serum Total Protein (6.3-8.2) g/dL Albumin (3.5-5.0) g/dL Amylase (30-110) U/L Lipase (23-300) U/L Urine Color (Yellow) Urine Appearance (Clear) Urine pH (4.6-8.0) Ur Specific [place] (1.005-1.030) Urine Protein (Negative) Urine Glucose (UA) (Negative) mg/dL Urine Ketones (Negative) Urine Blood (Negative) Urine Nitrite (Negative) Urine Bilirubin (Negative) Urine Urobilinogen (0.2) mg/dL Ur Leukocyte Esterase (Negative) U Hyaline Cast (Auto) (0-2) /LPF Urine Microscopic RBC (0-5) /HPF Urine Microscopic WBC (0-5) /HPF Ur Epithelial Cells (None Seen) /HPF Urine Bacteria (None Seen) /HPF Urine Culture Reflexed (NO) Influenza Type A Ag NEGATIVE (NEGATIVE) Influenza Type B Ag NEGATIVE (NEGATIVE) RSV (PCR) NEGATIVE (NEGATIVE) SARS-CoV-2 (PCR) NEGATIVE (NEGATIVE) 01/09/23 01/09/23 Range/Units 16:34 18:50 WBC (4.0-10.5) x10^3/uL RBC (4.1-5.4) x10^6/uL Hgb (12.0-16.0) g/dL Hct (35-47) % MCV (78-100) fL MCH (26-32) pg MCHC (32-36) g/dL RDW (11.5-14.0) % Plt Count (150-450) x10^3/uL MPV (7.5-11.0) fL Gran % (36.0-66.0) % Immature Gran % (Auto) (0.00-0.4) % Nucleat RBC Rel Count (0.00-0.1) % Eos # (Auto) (0-0.5) x10^3/uL Immature Gran # (Auto) (0.00-0.03) x10^3u/L Absolute Lymphs (auto) (1.0-4.6) x10^3/uL Absolute Monos (auto) (0.0-1.3) x10^3/uL Absolute Nucleated RBC (0.00-0.01) x10^3u/L Lymphocytes % (24.0-44.0) % Monocytes % (0.0-12.0) % Eosinophils % (0.00-5.0) % Basophils % (0.0-0.4) % Absolute Granulocytes (1.4-6.9) x10^3/uL Basophils # (0-0.4) x10^3/uL Sodium (137-145) mmol/L Potassium (3.5-5.1) mmol/L Chloride (98-107) mmol/L Carbon Dioxide (22-30) mmol/L Anion Gap (5-15) MEQ/L BUN (7-17) mg/dL Creatinine (0.52-1.04) mg/dL Estimated GFR ML/MIN Glucose (74-106) mg/dL Lactic Acid 1.8 (0.4-2.0) Calcium (8.4-10.2) mg/dL Total Bilirubin (0.2-1.3) mg/dL AST (14-36) U/L ALT (0-35) U/L Alkaline Phosphatase (38-126) U/L Troponin I < 0.012 (0.000-0.034) ng/mL Serum Total Protein (6.3-8.2) g/dL Albumin (3.5-5.0) g/dL Amylase (30-110) U/L Lipase (23-300) U/L Urine Color (Yellow) Urine Appearance (Clear) Urine pH (4.6-8.0) Ur Specific [place] (1.005-1.030) Urine Protein (Negative) Urine Glucose (UA) (Negative) mg/dL Urine Ketones (Negative) Urine Blood (Negative) Urine Nitrite (Negative) Urine Bilirubin (Negative) Urine Urobilinogen (0.2) mg/dL Ur Leukocyte Esterase (Negative) U Hyaline Cast (Auto) (0-2) /LPF Urine Microscopic RBC (0-5) /HPF Urine Microscopic WBC (0-5) /HPF Ur Epithelial Cells (None Seen) /HPF Urine Bacteria (None Seen) /HPF Urine Culture Reflexed (NO) Influenza Type A Ag (NEGATIVE) Influenza Type B Ag (NEGATIVE) RSV (PCR) (NEGATIVE) SARS-CoV-2 (PCR) (NEGATIVE) Microbiology 01/09/23 Unknown Stool Culture Result 1 - Final Stool Not Reportable Stool Culture Result 2 - Final Not Reportable Stool Culture Result 3 - Final Not Reportable Stool Culture Result 4 - Final Not Reportable Stool Culture Organism Suscept - Final Not Reportable Campylobacter Result 1 - Final Not Reportable Campylobacter Result 2 - Final Not Reportable Campylobactor Result 3 - Final Not Reportable Campylobacter Result 4 - Final Not Reportable Campylobactor Susceptibility - Final Not Reportable 01/09/23 Unknown C. difficile Toxin B Result 1 - Final Stool Not Reportable C. difficile Toxin B Result 2 - Final Not Reportable C. difficile Toxin B Result 3 - Final Not Reportable C. difficile Toxin B Result 4 - Final Not Reportable Antimicrobic Susceptibility - Final Not Reportable - Radiology Impressions Radiology Exams & Impressions: Radiology Procedures Category Date Time Status ABDOMEN AND PELVIS W/0 CONTRAS [CT] Stat Exams 01/09/23 14:27 Completed Assessment/Plan (1) Diarrhea Current Visit: Yes Status: Acute Assessment & Plan: ASSESSMENT #Diarrhea #Abdominal pain #Fatigue #Asymptomatic pyuria #History of diabetes #History of hypertension #History of trigeminal neuralgia #History of VTE PLAN -Send stool studies -Azithromycin x3 days -Gentle IV fluids x1 L -As needed antiemetics -Sliding scale insulin -Continue antihypertensives, Xarelto #FEN: P.o. diet Prophylaxis: Continue anticoagulation Entire encounter performed via telemedicine Critical care time 60 minutes. Code(s): R19.7 - DIARRHEA, UNSPECIFIED Telemedicine Encounter - Telemedicine Encounter Telemedicine Encounter: The entirety of this encounter was performed via Telemedicine"
[2023-01-09] MEDS ORDERED: Lactated Ringers 1,000 ML IV SCH (21:00)
[2023-01-09] MEDS ORDERED: NORCO 5/325 MG PO PRN (21:05)
[2023-01-09] MEDS ORDERED: LYRICA 150MG ONE (21:13)
[2023-01-09] MEDS: LYRICA 150MG PO SCH ×2 (22:00→22:26)
[2023-01-09] MEDS: Tegretol 200 MG PO SCH (22:00)
[2023-01-09] MEDS: Acidophilus TABLET PO SCH (22:01)
[2023-01-09] MEDS: HUMALOG SQ SCH (23:26)
[2023-01-10 05:00] LABS: Absolute Neutrophil Ct (ANC) 2.27 x10^3/uL (1.4-6.9); BASOPHIL % 0.4 % (0.0-0.4); Basophil (Absolute #) 0.02 x10^3/uL (0-0.4); Eosinophil (Absolute #) 0.15 x10^3/uL (0-0.5); Hematocrit 37.7 % (35-47); Hemoglobin 12.5 g/dL (12.0-16.0); IMMATURE GRAN # 0.02 x10^3u/L (0.00-0.03); IMMATURE GRAN % 0.4 % (0.00-0.4); Lymphocytes % 40.7 % (24.0-44.0); Mean Cell Volume 85.9 fL (78-100); Mean Corpuscular Hemoglobin 28.5 pg (26-32); Mean Corpuscular Hgb Concent. 33.2 g/dL (32-36); Mean Platelet Volume 9.2 fL (7.5-11.0); Monocyte (Absolute #) 0.46 x10^3/uL (0.0-1.3); Monocytes % 9.3 % (0.0-12.0); Neutrophil % 46.2 % (36.0-66.0); Platelet Count 184 x10^3/uL (150-450); Red Blood Count 4.39 x10^6/uL (4.1-5.4); Red Cell Distribution Width 13.8 % (11.5-14.0); White Blood Count 4.9 x10^3/uL (4.0-10.5)
[2023-01-10 05:24] LABS: ALBUMIN 3.5 g/dL (3.5-5.0); ALKALINE PHOSPHATASE 119 U/L (38-126); ANION GAP 8.8 MEQ/L (5-15); BLOOD UREA NITROGEN 15 mg/dL (7-17); CHLORIDE 107 mmol/L (98-107); Calcium 8.5 mg/dL (8.4-10.2); Carbon Dioxide 25 mmol/L (22-30); Creatinine 1 0.71 mg/dL (0.52-1.04); EST GLOMERULAR FILTRATION RATE > 60.0 ML/MIN; Glucose 109 mg/dL (74-106); Potassium 3.7 mmol/L (3.5-5.1); SGOT/AST 25 U/L (14-36); SGPT/ALT 25 U/L (0-35); SODIUM 137 mmol/L (137-145); Total Protein 5.8 g/dL (6.3-8.2)
[2023-01-10 06:46] VITALS: RESP 16
[2023-01-10] MEDS: HUMALOG SQ SCH ×2 (07:49→12:35)
[2023-01-10] MEDS ORDERED: NON-FORMULARY ITEM (Potassium Chloride [Klor-Con 10] 10 MEQ Tablet.Er) PO SCH (10:00)
[2023-01-10] MEDS ORDERED: NON-FORMULARY ITEM (Rivaroxaban [Xarelto] 20 MG Tablet) PO SCH (10:00)
[2023-01-10] MEDS ORDERED: Protonix 40MG Tablet PO SCH (10:00)
[2023-01-10] MEDS ORDERED: NON-FORMULARY ITEM (Esomeprazole Magnesium [Nexium] 40 MG Capsule.Dr) PO SCH (10:00)
[2023-01-10] MEDS ORDERED: Toprol-Xl 25MG Tablets PO SCH (10:00)
[2023-01-10] MEDS ORDERED: Klor Con PO SCH (10:00)
[2023-01-10] MEDS ORDERED: XARELTO 10 MG TABLET PO SCH (10:00)
[2023-01-10] MEDS ORDERED: ROCEPHIN 1 Gm-D5w 50 ml Bag** 1 G/50 ML IVPB IV SCH (10:00)
[2023-01-10] MEDS: Acidophilus TABLET PO SCH (10:27)
[2023-01-10] MEDS: Tegretol 200 MG PO SCH (10:28)
[2023-01-10 11:10] VITALS: BP 122/78; PULSE 84; TEMP 96.6; O2SAT 94
--- NOTE | 2023-01-10 11:31 | PCM.DS ---
Discharge Summary Date of Admission: 01/09/23 18:14 Date of Discharge: 01/10/23 Admitting Physician: KATLIN PHILIP MD Primary Care Provider: MORGAN KUMAR Allergies Allergies No Known Drug Allergies Allergy (Verified 01/09/23 13:43) Hospital Summary - Hospital Course Hospital Course: This is a 77-year-old female admitted for persistent diarrhea. She has past medical history of GERD, hypertension, diabetes. She presented to the ED for complaints of abdominal pain and diarrhea for 3 weeks. She reports initially feeling fatigued and overall not well and then several days after developed diarrhea. She describes 2-3 episodes of watery diarrhea daily she reports initially was black in color but that has resolved. She has completed a course of ciprofloxacin with some improvement in her diarrhea but since stopping it 3 days ago she feels the diarrhea has again worsened. She complains of feeling very fatigued and dehydrated and she thinks she passed out while taking a shower. She also reports poor p.o. intake due to constant nausea and mid abdominal discomfort which is chronic but does worsen when she eats. She denies any urinary tract infection symptoms. COVID, RSV, influenza were negative. CT abdomen pelvis was performed that showed minimal sigmoid diverticulosis, bilateral renal cyst, chronic bony findings, arteriosclerotic disease and old granulomatous disease. In the ED she was given a liter of normal saline and a dose of Zosyn. She has not had any diarrhea since admission and stool specimen was cancelled. Urine culture came back and negative. She is feeling much better today and ready to go home. She denies any further c/o at his time. - Vitals & Intake/Output Vital Signs: Vital Signs Temperature 96.6 F 01/10/23 11:09 Pulse Rate 84 01/10/23 11:09 Respiratory Rate 16 01/10/23 11:09 Blood Pressure 122/78 01/10/23 11:09 O2 Sat by Pulse Oximetry 94 L 01/10/23 11:09 Intake & Output: Intake & Output 01/07/23 01/08/23 01/09/23 01/10/23 11:59 11:59 11:59 11:59 Intake Total 1355 Balance 1355 Weight 77.111 kg - Lab Result Diagrams: 01/10/23 04:32 01/10/23 04:32 Lab Results-Last 24 Hrs: Lab Results-Last 24 Hours 01/09/23 01/09/23 01/09/23 Range/Units 14:04 14:20 14:20 WBC 6.3 (4.0-10.5) x10^3/uL RBC 5.11 (4.1-5.4) x10^6/uL Hgb 14.4 (12.0-16.0) g/dL Hct 44.8 (35-47) % MCV 87.7 (78-100) fL MCH 28.2 (26-32) pg MCHC 32.1 (32-36) g/dL RDW 13.5 (11.5-14.0) % Plt Count 240 (150-450) x10^3/uL MPV 9.1 (7.5-11.0) fL Gran % 59.3 (36.0-66.0) % Immature Gran % (Auto) 0.5 H (0.00-0.4) % Nucleat RBC Rel Count 0.0 (0.00-0.1) % Eos # (Auto) 0.08 (0-0.5) x10^3/uL Immature Gran # (Auto) 0.03 (0.00-0.03) x10^3u/L Absolute Lymphs (auto) 1.92 (1.0-4.6) x10^3/uL Absolute Monos (auto) 0.48 (0.0-1.3) x10^3/uL Absolute Nucleated RBC 0.00 (0.00-0.01) x10^3u/L Lymphocytes % 30.5 (24.0-44.0) % Monocytes % 7.6 (0.0-12.0) % Eosinophils % 1.3 (0.00-5.0) % Basophils % 0.8 (0.0-0.4) % Absolute Granulocytes 3.73 (1.4-6.9) x10^3/uL Basophils # 0.05 (0-0.4) x10^3/uL Sodium 140 (137-145) mmol/L Potassium 4.4 (3.5-5.1) mmol/L Chloride 103 (98-107) mmol/L Carbon Dioxide 24 (22-30) mmol/L Anion Gap 16.5 H (5-15) MEQ/L BUN 20 H (7-17) mg/dL Creatinine 0.86 (0.52-1.04) mg/dL Estimated GFR > 60.0 ML/MIN Glucose 126 H (74-106) mg/dL POC Glucometer (74 to 106) mg/dL Lactic Acid (0.4-2.0) Calcium 9.5 (8.4-10.2) mg/dL Total Bilirubin 0.40 (0.2-1.3) mg/dL AST 26 (14-36) U/L ALT 28 (0-35) U/L Alkaline Phosphatase 157 H (38-126) U/L Troponin I (0.000-0.034) ng/mL Serum Total Protein 7.4 (6.3-8.2) g/dL Albumin 4.6 (3.5-5.0) g/dL Amylase 77 (30-110) U/L Lipase 193 (23-300) U/L Urine Color Dark Yellow A (Yellow) Urine Appearance Cloudy A (Clear) Urine pH 5.0 (4.6-8.0) Ur Specific [place] 1.025 (1.005-1.030) Urine Protein 30 (Negative) Urine Glucose (UA) Negative (Negative) mg/dL Urine Ketones Trace A (Negative) Urine Blood Trace (Negative) Urine Nitrite Negative (Negative) Urine Bilirubin Small A (Negative) Urine Urobilinogen 0.2 (0.2) mg/dL Ur Leukocyte Esterase Large A (Negative) U Hyaline Cast (Auto) 11-20 (0-2) /LPF Urine Microscopic RBC 6-10 A (0-5) /HPF Urine Microscopic WBC >100 A (0-5) /HPF Ur Epithelial Cells Many A (None Seen) /HPF Urine Bacteria None Seen (None Seen) /HPF Urine Culture Reflexed YES (NO) Influenza Type A Ag (NEGATIVE) Influenza Type B Ag (NEGATIVE) RSV (PCR) (NEGATIVE) SARS-CoV-2 (PCR) (NEGATIVE) 01/09/23 01/09/23 01/09/23 Range/Units 14:20 14:20 14:32 WBC (4.0-10.5) x10^3/uL RBC (4.1-5.4) x10^6/uL Hgb (12.0-16.0) g/dL Hct (35-47) % MCV (78-100) fL MCH (26-32) pg MCHC (32-36) g/dL RDW (11.5-14.0) % Plt Count (150-450) x10^3/uL MPV (7.5-11.0) fL Gran % (36.0-66.0) % Immature Gran % (Auto) (0.00-0.4) % Nucleat RBC Rel Count (0.00-0.1) % Eos # (Auto) (0-0.5) x10^3/uL Immature Gran # (Auto) (0.00-0.03) x10^3u/L Absolute Lymphs (auto) (1.0-4.6) x10^3/uL Absolute Monos (auto) (0.0-1.3) x10^3/uL Absolute Nucleated RBC (0.00-0.01) x10^3u/L Lymphocytes % (24.0-44.0) % Monocytes % (0.0-12.0) % Eosinophils % (0.00-5.0) % Basophils % (0.0-0.4) % Absolute Granulocytes (1.4-6.9) x10^3/uL Basophils # (0-0.4) x10^3/uL Sodium (137-145) mmol/L Potassium (3.5-5.1) mmol/L Chloride (98-107) mmol/L Carbon Dioxide (22-30) mmol/L Anion Gap (5-15) MEQ/L BUN (7-17) mg/dL Creatinine (0.52-1.04) mg/dL Estimated GFR ML/MIN Glucose (74-106) mg/dL POC Glucometer (74 to 106) mg/dL Lactic Acid 2.3 H (0.4-2.0) Calcium (8.4-10.2) mg/dL Total Bilirubin (0.2-1.3) mg/dL AST (14-36) U/L ALT (0-35) U/L Alkaline Phosphatase (38-126) U/L Troponin I < 0.012 (0.000-0.034) ng/mL Serum Total Protein (6.3-8.2) g/dL Albumin (3.5-5.0) g/dL Amylase (30-110) U/L Lipase (23-300) U/L Urine Color (Yellow) Urine Appearance (Clear) Urine pH (4.6-8.0) Ur Specific [place] (1.005-1.030) Urine Protein (Negative) Urine Glucose (UA) (Negative) mg/dL Urine Ketones (Negative) Urine Blood (Negative) Urine Nitrite (Negative) Urine Bilirubin (Negative) Urine Urobilinogen (0.2) mg/dL Ur Leukocyte Esterase (Negative) U Hyaline Cast (Auto) (0-2) /LPF Urine Microscopic RBC (0-5) /HPF Urine Microscopic WBC (0-5) /HPF Ur Epithelial Cells (None Seen) /HPF Urine Bacteria (None Seen) /HPF Urine Culture Reflexed (NO) Influenza Type A Ag NEGATIVE (NEGATIVE) Influenza Type B Ag NEGATIVE (NEGATIVE) RSV (PCR) NEGATIVE (NEGATIVE) SARS-CoV-2 (PCR) NEGATIVE (NEGATIVE) 01/09/23 01/09/23 01/09/23 Range/Units 16:34 18:50 21:55 WBC (4.0-10.5) x10^3/uL RBC (4.1-5.4) x10^6/uL Hgb (12.0-16.0) g/dL Hct (35-47) % MCV (78-100) fL MCH (26-32) pg MCHC (32-36) g/dL RDW (11.5-14.0) % Plt Count (150-450) x10^3/uL MPV (7.5-11.0) fL Gran % (36.0-66.0) % Immature Gran % (Auto) (0.00-0.4) % Nucleat RBC Rel Count (0.00-0.1) % Eos # (Auto) (0-0.5) x10^3/uL Immature Gran # (Auto) (0.00-0.03) x10^3u/L Absolute Lymphs (auto) (1.0-4.6) x10^3/uL Absolute Monos (auto) (0.0-1.3) x10^3/uL Absolute Nucleated RBC (0.00-0.01) x10^3u/L Lymphocytes % (24.0-44.0) % Monocytes % (0.0-12.0) % Eosinophils % (0.00-5.0) % Basophils % (0.0-0.4) % Absolute Granulocytes (1.4-6.9) x10^3/uL Basophils # (0-0.4) x10^3/uL Sodium (137-145) mmol/L Potassium (3.5-5.1) mmol/L Chloride (98-107) mmol/L Carbon Dioxide (22-30) mmol/L Anion Gap (5-15) MEQ/L BUN (7-17) mg/dL Creatinine (0.52-1.04) mg/dL Estimated GFR ML/MIN Glucose (74-106) mg/dL POC Glucometer (74 to 106) mg/dL Lactic Acid 1.8 (0.4-2.0) Calcium (8.4-10.2) mg/dL Total Bilirubin (0.2-1.3) mg/dL AST (14-36) U/L ALT (0-35) U/L Alkaline Phosphatase (38-126) U/L Troponin I < 0.012 < 0.012 (0.000-0.034) ng/mL Serum Total Protein (6.3-8.2) g/dL Albumin (3.5-5.0) g/dL Amylase (30-110) U/L Lipase (23-300) U/L Urine Color (Yellow) Urine Appearance (Clear) Urine pH (4.6-8.0) Ur Specific [place] (1.005-1.030) Urine Protein (Negative) Urine Glucose (UA) (Negative) mg/dL Urine Ketones (Negative) Urine Blood (Negative) Urine Nitrite (Negative) Urine Bilirubin (Negative) Urine Urobilinogen (0.2) mg/dL Ur Leukocyte Esterase (Negative) U Hyaline Cast (Auto) (0-2) /LPF Urine Microscopic RBC (0-5) /HPF Urine Microscopic WBC (0-5) /HPF Ur Epithelial Cells (None Seen) /HPF Urine Bacteria (None Seen) /HPF Urine Culture Reflexed (NO) Influenza Type A Ag (NEGATIVE) Influenza Type B Ag (NEGATIVE) RSV (PCR) (NEGATIVE) SARS-CoV-2 (PCR) (NEGATIVE) 01/09/23 01/10/23 01/10/23 Range/Units 22:14 04:32 04:32 WBC 4.9 (4.0-10.5) x10^3/uL RBC 4.39 (4.1-5.4) x10^6/uL Hgb 12.5 (12.0-16.0) g/dL Hct 37.7 (35-47) % MCV 85.9 (78-100) fL MCH 28.5 (26-32) pg MCHC 33.2 (32-36) g/dL RDW 13.8 (11.5-14.0) % Plt Count 184 (150-450) x10^3/uL MPV 9.2 (7.5-11.0) fL Gran % 46.2 (36.0-66.0) % Immature Gran % (Auto) 0.4 (0.00-0.4) % Nucleat RBC Rel Count 0.0 (0.00-0.1) % Eos # (Auto) 0.15 (0-0.5) x10^3/uL Immature Gran # (Auto) 0.02 (0.00-0.03) x10^3u/L Absolute Lymphs (auto) 2.00 (1.0-4.6) x10^3/uL Absolute Monos (auto) 0.46 (0.0-1.3) x10^3/uL Absolute Nucleated RBC 0.00 (0.00-0.01) x10^3u/L Lymphocytes % 40.7 (24.0-44.0) % Monocytes % 9.3 (0.0-12.0) % Eosinophils % 3.0 (0.00-5.0) % Basophils % 0.4 (0.0-0.4) % Absolute Granulocytes 2.27 (1.4-6.9) x10^3/uL Basophils # 0.02 (0-0.4) x10^3/uL Sodium 137 (137-145) mmol/L Potassium 3.7 (3.5-5.1) mmol/L Chloride 107 (98-107) mmol/L Carbon Dioxide 25 (22-30) mmol/L Anion Gap 8.8 (5-15) MEQ/L BUN 15 (7-17) mg/dL Creatinine 0.71 (0.52-1.04) mg/dL Estimated GFR > 60.0 ML/MIN Glucose 109 H (74-106) mg/dL POC Glucometer 115 H (74 to 106) mg/dL Lactic Acid (0.4-2.0) Calcium 8.5 (8.4-10.2) mg/dL Total Bilirubin 0.30 (0.2-1.3) mg/dL AST 25 (14-36) U/L ALT 25 (0-35) U/L Alkaline Phosphatase 119 (38-126) U/L Troponin I (0.000-0.034) ng/mL Serum Total Protein 5.8 L (6.3-8.2) g/dL Albumin 3.5 (3.5-5.0) g/dL Amylase (30-110) U/L Lipase (23-300) U/L Urine Color (Yellow) Urine Appearance (Clear) Urine pH (4.6-8.0) Ur Specific [place] (1.005-1.030) Urine Protein (Negative) Urine Glucose (UA) (Negative) mg/dL Urine Ketones (Negative) Urine Blood (Negative) Urine Nitrite (Negative) Urine Bilirubin (Negative) Urine Urobilinogen (0.2) mg/dL Ur Leukocyte Esterase (Negative) U Hyaline Cast (Auto) (0-2) /LPF Urine Microscopic RBC (0-5) /HPF Urine Microscopic WBC (0-5) /HPF Ur Epithelial Cells (None Seen) /HPF Urine Bacteria (None Seen) /HPF Urine Culture Reflexed (NO) Influenza Type A Ag (NEGATIVE) Influenza Type B Ag (NEGATIVE) RSV (PCR) (NEGATIVE) SARS-CoV-2 (PCR) (NEGATIVE) 01/10/23 01/10/23 Range/Units 06:16 11:17 WBC (4.0-10.5) x10^3/uL RBC (4.1-5.4) x10^6/uL Hgb (12.0-16.0) g/dL Hct (35-47) % MCV (78-100) fL MCH (26-32) pg MCHC (32-36) g/dL RDW (11.5-14.0) % Plt Count (150-450) x10^3/uL MPV (7.5-11.0) fL Gran % (36.0-66.0) % Immature Gran % (Auto) (0.00-0.4) % Nucleat RBC Rel Count (0.00-0.1) % Eos # (Auto) (0-0.5) x10^3/uL Immature Gran # (Auto) (0.00-0.03) x10^3u/L Absolute Lymphs (auto) (1.0-4.6) x10^3/uL Absolute Monos (auto) (0.0-1.3) x10^3/uL Absolute Nucleated RBC (0.00-0.01) x10^3u/L Lymphocytes % (24.0-44.0) % Monocytes % (0.0-12.0) % Eosinophils % (0.00-5.0) % Basophils % (0.0-0.4) % Absolute Granulocytes (1.4-6.9) x10^3/uL Basophils # (0-0.4) x10^3/uL Sodium (137-145) mmol/L Potassium (3.5-5.1) mmol/L Chloride (98-107) mmol/L Carbon Dioxide (22-30) mmol/L Anion Gap (5-15) MEQ/L BUN (7-17) mg/dL Creatinine (0.52-1.04) mg/dL Estimated GFR ML/MIN Glucose (74-106) mg/dL POC Glucometer 115 H 150 H (74 to 106) mg/dL Lactic Acid (0.4-2.0) Calcium (8.4-10.2) mg/dL Total Bilirubin (0.2-1.3) mg/dL AST (14-36) U/L ALT (0-35) U/L Alkaline Phosphatase (38-126) U/L Troponin I (0.000-0.034) ng/mL Serum Total Protein (6.3-8.2) g/dL Albumin (3.5-5.0) g/dL Amylase (30-110) U/L Lipase (23-300) U/L Urine Color (Yellow) Urine Appearance (Clear) Urine pH (4.6-8.0) Ur Specific [place] (1.005-1.030) Urine Protein (Negative) Urine Glucose (UA) (Negative) mg/dL Urine Ketones (Negative) Urine Blood (Negative) Urine Nitrite (Negative) Urine Bilirubin (Negative) Urine Urobilinogen (0.2) mg/dL Ur Leukocyte Esterase (Negative) U Hyaline Cast (Auto) (0-2) /LPF Urine Microscopic RBC (0-5) /HPF Urine Microscopic WBC (0-5) /HPF Ur Epithelial Cells (None Seen) /HPF Urine Bacteria (None Seen) /HPF Urine Culture Reflexed (NO) Influenza Type A Ag (NEGATIVE) Influenza Type B Ag (NEGATIVE) RSV (PCR) (NEGATIVE) SARS-CoV-2 (PCR) (NEGATIVE) Micro Results-Entire Visit: Microbiology 01/09/23 14:04 Urine Culture - Preliminary Urine, Void <10K 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 CONTAMINANT Accuchecks Date 01/10/23 Time 06:45 - Radiology Exams Ordered Rad Exams-Entire Visit: Radiology Procedures Category Date Time Status ABDOMEN AND PELVIS W/0 CONTRAS [CT] Stat Exams 01/09/23 14:27 Completed - Procedures and Test Procedures and Tests throughout Hospitalization: Therapy Orders & Screens 01/09/23 18:40 ST Screen per Nursing Assess ONCE Comment: Protocol Order Physician Instructions: Greater than [address] Admission Screening Reason For Exam: Triggered on Admission Diagnosis: UTI, Dehydration CVA/Dyshpagia/Aphasia: No Cognitive Deficits: No Dehydration/Nutrition Deficit: Yes Reflux: No Oral-Motor Difficulties: No Pneumonia: No Fdc Resident: No Total Points: 5 Discharge Exam General Appearance: no apparent distress, alert Neurologic Exam: alert, oriented x 3, cooperative, normal mood/affect, nml cerebellar function, sensation nml, No motor deficits Eye Exam: PERRL, EOMI, eyes nml inspection Ears, Nose, Throat Exam: normal ENT inspection, pharynx normal, moist mucous membranes Neck Exam: normal inspection, non-tender, supple, full range of motion Respiratory Exam: normal breath sounds, lungs clear, No respiratory distress Cardiovascular Exam: regular rate/rhythm, normal heart sounds Gastrointestinal/Abdomen Exam: soft, tenderness (slight tenderness with palpatio n.), No mass Pelvic Exam: deferred Rectal Exam: deferred Back Exam: normal inspection, normal range of motion, No CVA tenderness, No vertebral tenderness Extremity Exam: normal inspection, normal range of motion Skin Exam: normal color, warm, dry Final Diagnosis/Problem List - Final Discharge Diagnosis/Problem (1) Abdominal pain Current Visit: Yes Status: Acute Code(s): R10.9 - UNSPECIFIED ABDOMINAL PAIN (2) Diarrhea Current Visit: Yes Status: Acute Code(s): R19.7 - DIARRHEA, UNSPECIFIED (3) UTI (urinary tract infection) Current Visit: Yes Status: Acute Assessment & Plan: - stool studies- cancelled as she no longer has diarrhea -Azithromycin changed to Rocephin -Gentle IV fluids x1 L- completed -As needed antiemetics -Sliding scale insulin -Continue antihypertensives, Xarelto - UC negative - labs improved Code(s): N39.0 - URINARY TRACT INFECTION, SITE NOT SPECIFIED - Discharge Discharge Date: 01/10/23 Disposition: Home, Self-Care Condition: Stable Prescriptions: Continue Potassium Chloride [Klor-Con 10] 10 meq PO DAILY Metoprolol Succinate 25 mg Xl* [Toprol-Xl 25MG Tablets] 25 mg PO DAILY Esomeprazole Magnesium [Nexium] 40 mg PO DAILY carBAMazepine [Carbamazepine] 200 mg PO BID Rivaroxaban [Xarelto] 20 mg PO DAILY #0 Metformin HCl 500 mg [Glucophage 500 MG] 500 mg PO HS Losartan Potassium 50 mg [Cozaar 50 MG] 50 mg PO HS Pregabalin [Lyrica 150Mg] 150 mg PO DAILY Follow up with: MORGAN KUMAR MD [Primary Care Provider] -
[2023-01-10] MEDS ORDERED: Cozaar 50 MG PO SCH (22:00)
== END 2023-01-10 13:15 | disposition home or self-care (01) ==
LOC: ED 12:51 → MED SURG 18:14
PROVIDERS: ADMIT Internal Medicine; ATTEND Internal Medicine
DX: R10.9 Unspecified abdominal pain (principal); R19.7 Diarrhea, unspecified; N39.0 Urinary tract infection, site not specified; I10 Essential (primary) hypertension; E11.9 Type 2 diabetes mellitus without complications; Z79.899 Other long term (current) drug therapy; Z20.828 Contact with and (suspected) exposure to other viral communicable diseases; Z79.01 Long term (current) use of anticoagulants
CPT/HCPCS: 0241U; 36000; 36415; 74176; 80053; 81001; 82150; 82947; 83605; 83690; 84484; 85025; 87086; 93005; 96365; 99285; G0378; J0696; J2405; A9270-GY

== ENCOUNTER 2024-12-03 14:40 | Emergency (ER) | payer MEDICARE, OTHER ==
[2024-12-03 14:51] VITALS: BP 169/75; PULSE 80; TEMP 97.4; O2SAT 97
--- NOTE | 2024-12-03 14:56 | ERPHSYRPT ---
- History of Present Illness Source: patient Exam Limitations: no limitations Patient Subjective Stated Complaint: TMJ to the right side Triage Nursing Assessment: Pt brought to the ER by EMS, hypertensive, rates pain as a 02/21, was supposed to see Dr. Iglesias today at 1400 but had called and cancelled due to unable to get here, pulses normal, skin n/wd, denies chest pain, no difficulty breathing Physician History: Patient has pain in the right face. It is trigeminal neuralgia. She sees pain management for it. She actually had an appointment today and they could not see her or actually she could not get in. She called EMS and came in for some immediate pain relief. This is a longstanding problem. She is already on gabapentin for it. She is just requesting something for pain. Actually the pain management doctor is here in the hospital so we may call them and see if they can come do what ever procedure it is that they do on her. Allergies/Adverse Reactions: No Known Drug Allergies Allergy (Verified 12/03/24 14:51) Home Medications: Esomeprazole Magnesium [Nexium] 40 mg PO DAILY 06/26/13 [History] Metoprolol Succinate 25 mg Xl* [Toprol-Xl 25MG Tablets] 25 mg PO DAILY 06/26/13 [History] Potassium Chloride [Klor-Con 10] 20 meq PO DAILY 06/26/13 [History] carBAMazepine [Carbamazepine] 200 mg PO BID 06/26/13 [History] Metformin HCl 500 mg [Glucophage 500 MG] 500 mg PO HS 01/09/23 [History] Pregabalin [Lyrica 150Mg] 200 mg PO DAILY 01/10/23 [History] Celecoxib [Celebrex] 200 mg PO DAILY 12/03/24 [History] Empagliflozin [Jardiance] 10 mg PO DAILY 12/03/24 [History] Enalapril Maleate [Vasotec] 10 mg PO DAILY 12/03/24 [History] Pregabalin [Lyrica] 200 mg PO BID 12/03/24 [History] carBAMazepine [Epitol] 200 mg PO BID 12/03/24 [History] hydroCHLOROthiazide [Hydrochlorothiazide] 12.5 mg PO DAILY 12/03/24 [History] Hx Tetanus, Diphtheria Vaccination/Date Given: No Hx Influenza Vaccination/Date Given: Yes Hx Pneumococcal Vaccination/Date Given: Yes Travel Risk - International Travel Have you traveled outside of the country in past 3 weeks: No - Emerging Infectious Disease Are you exhibiting symptoms associated with any current EIDs: No - Review of Systems Constitutional: No Symptoms Eyes: No Symptoms Ears, Nose, & Throat: No Symptoms Respiratory: No Symptoms Cardiac: No Symptoms Skin: No Symptoms All Other Systems: Reviewed and Negative - Past Medical History Pertinent Past Medical History: Yes Neurological History: Epilepsy, Other ENT History: No Pertinent History Cardiac History: Hypertension Respiratory History: Other Endocrine Medical History: Other Musculoskeletal History: Other GI Medical History: GERD, Gallbladder Disease History: No Pertinent History Psycho-Social History: No Pertinent History Female Reproductive Disorders: Fibroids Other Medical History: L Rotator Cuff Repair, Trigeminal Neuralgia, Pre- Diabetic, COVID-19 x1, Sanchez's Palsy, Tonsillectomy (1962), Hysterectomy (01/1974), Ovary Removal (01/1975), L TKA (11/17/94), R TKA (01/26/95), Colonoscopy (07/13/2006, 07/22/2009, 08/05/2014), Cholecystectomy (12/03/2008), L Rotator Cuff Re pair (08/17/2010), R BASILIO (12/25/13) - Past Surgical History Past Surgical History: Yes Neuro Surgical History: No Pertinent History Cardiac: No Pertinent History Respiratory: No Pertinent History Gastrointestinal: Cholecystectomy Genitourinary: No Pertinent History Musculoskeletal: Joint Replacement, Orthopedic Surgery Female Surgical History: Hysterectomy, Other Other Surgical History: KNEE REPLACEMENTS bilateral, right hip replacement, ovary removed, 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 Significant Family History: no pertinent family hx - Social History Smoking Status: Former smoker Exposure to second hand smoke: Yes Drug Use: none - Social Determinants of Health Will the patient participate in the screening: Yes Do you worry about a steady place to live?: No Do you have any problems with any of the following?: No known problems In the past 12 months,have you had to go without utilities?: No Transportation Issues: No Has anyone in your support network made you feel unsafe?: No Have you or anyone in your house had to go w/o enough food: No - Nursing Vital Signs Nursing Vital Signs: Initial Vital Signs Temperature 97.4 F 12/03/24 14:44 Pulse Rate 80 12/03/24 14:44 Blood Pressure 169/75 12/03/24 14:44 O2 Sat by Pulse Oximetry 97 12/03/24 14:44 Pain Scale Pain Intensity 10 - Physical Exam General Appearance: no apparent distress Eye Exam: PERRL/EOMI Ears, Nose, Throat Exam: normal ENT inspection Neck Exam: normal inspection Neurologic Exam: alert, oriented x 3, cooperative Skin Exam: normal color, warm, dry SpO2: 97 - Course Nursing assessment & vital signs reviewed: Yes Ordered Tests: Medication Summary Discontinued Medications Generic Name Dose Route Start Last Admin Trade Name Eric PRN Reason Stop Dose Admin Hydromorphone HCl 1 mg 12/03/24 14:53 Hydromorphone 1 Mg/1ml Inj IV 12/03/24 14:54 STAT ONE - Progress Progress: improved Progress Note: Patient was stable throughout stay. I gave her some Dilaudid. She tolerated this well. We called pain management for her. They came and saw the patient and asked that we send her over to pain management for treatment. Patient got milligram of Dilaudid IM. She was then released to go over to pain management in the hospital. 12/03/24 15:10 12/03/24 15:11 - Departure Departure Disposition: Home Clinical Impression: Trigeminal neuralgia Condition: Stable Critical Care Time: No Referrals: MORGAN KUMAR MD [Primary Care Provider, INTERNAL MED[facility]] - Follow up/PCP as directed
[2024-12-03] MEDS ORDERED: Hydromorphone 1 mg/ml Injection ONE (15:11)
[2024-12-03] MEDS: Hydromorphone 1 mg/ml Injection IV ONE (15:13)
== END 2024-12-03 15:25 | disposition home or self-care (01) ==
LOC: ED 14:40
DX: G50.0 Trigeminal neuralgia (principal); I10 Essential (primary) hypertension; Z79.84 Long term (current) use of oral hypoglycemic drugs; Z79.899 Other long term (current) drug therapy

== ENCOUNTER 2024-12-07 10:39 | Inpatient (IN) | payer MEDICARE, OTHER ==
--- NOTE | 2024-12-07 11:24 | ERPHSYRPT ---
- History of Present Illness Source: patient Exam Limitations: no limitations Patient Subjective Stated Complaint: PT states "I have trigeminal neuralgia and I have had steriods and an anti inflamatory yesterday and I see Dr. Main but when the pain flairs up it is just terrible." Triage Nursing Assessment: Pt presented alert and oriented X 3, skin pwd. PT sitting in a wheelchair. PT holding a wet rag to her forehead resting comfortably on the bed. Physician History: Patient has trigeminal neuralgia. It is a chronic condition. She is having right sided facial pain. She does not have any rash or signs or symptoms of shingles. She went to her doctor yesterday for this. She is already on gabapentin. He put her on prednisone. She is not taking any pain medicines at this time.Is classic trigeminal neuralgia symptoms.There is been no trauma or anything like that. She does not have any focal neurological deficits. Allergies/Adverse Reactions: No Known Drug Allergies Allergy (Verified 12/03/24 14:51) Home Medications: Esomeprazole Magnesium [Nexium] 40 mg PO DAILY 06/26/13 [History] Metoprolol Succinate 25 mg Xl* [Toprol-Xl 25MG Tablets] 25 mg PO DAILY 06/26/13 [History] Potassium Chloride [Klor-Con 10] 20 meq PO DAILY 06/26/13 [History] carBAMazepine [Carbamazepine] 200 mg PO BID 06/26/13 [History] Metformin HCl 500 mg [Glucophage 500 MG] 500 mg PO HS 01/09/23 [History] Empagliflozin [Jardiance] 10 mg PO DAILY 12/03/24 [History] Enalapril Maleate [Vasotec] 10 mg PO DAILY 12/03/24 [History] Pregabalin [Lyrica] 200 mg PO BID 12/03/24 [History] carBAMazepine [Epitol] 200 mg PO BID 12/03/24 [History] hydroCHLOROthiazide [Hydrochlorothiazide] 12.5 mg PO DAILY 12/03/24 [History] Semaglutide [Ozempic] 0.25 mg SQ WEEKLY 12/07/24 [History] Hx Tetanus, Diphtheria Vaccination/Date Given: No Hx Influenza Vaccination/Date Given: Yes Hx Pneumococcal Vaccination/Date Given: Yes Immunizations Up to Date: No Travel Risk - International Travel Have you traveled outside of the country in past 3 weeks: No - Emerging Infectious Disease Are you exhibiting symptoms associated with any current EIDs: No - Review of Systems Constitutional: No Symptoms Eyes: No Symptoms Ears, Nose, & Throat: No Symptoms Respiratory: No Symptoms Abdominal/Gastrointestinal: No Symptoms All Other Systems: Reviewed and Negative - Past Medical History Pertinent Past Medical History: Yes Neurological History: Other ENT History: No Pertinent History Cardiac History: Hypertension Respiratory History: Other Endocrine Medical History: Other Musculoskeletal History: Other GI Medical History: GERD, Gallbladder Disease History: No Pertinent History Psycho-Social History: No Pertinent History Female Reproductive Disorders: Fibroids Other Medical History: L Rotator Cuff Repair, Trigeminal Neuralgia, Pre- Diabetic, COVID-19 x1, Sanchez's Palsy, Tonsillectomy (1962), Hysterectomy (01/1974), Ovary Removal (01/1975), L TKA (11/17/94), R TKA (01/26/95), Colonoscopy (07/13/2006, 07/22/2009, 08/05/2014), Cholecystectomy (12/03/2008), L Rotator Cuff Repair (08/17/2010), R BASILIO (12/25/13) - Past Surgical History Past Surgical History: Yes Neuro Surgical History: No Pertinent History Cardiac: No Pertinent History Respiratory: No Pertinent History Gastrointestinal: Cholecystectomy Genitourinary: No Pertinent History Musculoskeletal: Joint Replacement, Orthopedic Surgery Female Surgical History: Hysterectomy, Other Other Surgical History: KNEE REPLACEMENTS bilateral, right hip replacement, ovary removed, 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 Significant Family History: no pertinent family hx - Social History Smoking Status: Former smoker Exposure to second hand smoke: Yes Drug Use: none - Social Determinants of Health Will the patient participate in the screening: Yes Do you worry about a steady place to live?: No Do you have any problems with any of the following?: No known problems In the past 12 months,have you had to go without utilities?: No Transportation Issues: No Has anyone in your support network made you feel unsafe?: No Have you or anyone in your house had to go w/o enough food: No - Nursing Vital Signs Nursing Vital Signs: Initial Vital Signs Temperature 97.6 F 12/07/24 10:47 Pulse Rate 77 12/07/24 10:47 Respiratory Rate 18 12/07/24 10:47 Blood Pressure 178/83 12/07/24 10:47 O2 Sat by Pulse Oximetry 98 12/07/24 10:47 Pain Scale Pain Intensity 0 - Physical Exam General Appearance: no apparent distress Eye Exam: PERRL/EOMI, eyes nml inspection Ears, Nose, Throat Exam: normal ENT inspection, TMs normal Neck Exam: normal inspection, non-tender, supple Respiratory Exam: normal breath sounds, lungs clear, No chest tenderness, No respiratory distress Neurologic Exam: alert, oriented x 3, cooperative Skin Exam: normal color, warm, dry, No rash SpO2: 98 - Course Nursing assessment & vital signs reviewed: Yes Ordered Tests: Medication Summary Discontinued Medications Generic Name Dose Route Start Last Admin Trade Name Eric PRN Reason Stop Dose Admin Hydrocodone Bitart/Acetaminophen 2 tab 12/07/24 11:23 12/07/24 11:36 Hydrocodone/Apap 5/325 1 Tab Tablet PO 12/07/24 11:24 2 tab STAT ONE Administration Hydrocodone Bitart/Acetaminophen Confirm 12/07/24 11:36 Hydrocodone/Apap 5/325 1 Tab Tablet Administered 12/07/24 11:37 Dose 2 tab .ROUTE .STK-MED ONE Hydromorphone HCl 1 mg 12/07/24 13:01 12/07/24 13:18 Hydromorphone 1 Mg/1ml Inj IV 12/07/24 13:02 1 mg STAT ONE Administration Hydromorphone HCl Confirm 12/07/24 13:18 Hydromorphone 1 Mg/1ml Inj Administered 12/07/24 13:19 Dose 1 mg .ROUTE .STK-MED ONE - Progress Progress: unchanged Progress Note: Patient did a trial of [place]. She had 2 mg p.o. it did not help. She is already failed outpatient p.o. meds. She still in a lot of pain. I did talk to the hospital she said to try some IV medicine and see how she does. I gave her a milligram of Dilaudid. She improved I spoke with the hospitalist she agreed to admit the patient 12/07/24 13:23 12/07/24 14:20 - Departure Departure Disposition: Observation Clinical Impression: Trigeminal neuralgia Condition: Stable Critical Care Time: No Referrals: MORGAN KUMAR MD [Primary Care Provider, INTERNAL MEDICINE] - Follow up/PCP as directed
[2024-12-07] MEDS ORDERED: NORCO 5/325 MG ONE (11:36)
[2024-12-07] MEDS: NORCO 5/325 MG PO ONE (11:36)
[2024-12-07] MEDS: Hydromorphone 1 mg/ml Injection IV ONE (13:18)
[2024-12-07] MEDS ORDERED: Hydromorphone 1 mg/ml Injection ONE (13:18)
--- NOTE | 2024-12-07 14:54 | PCM.HP ---
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 She rates the pain 10/10 on numerical pain scale. She is followed by outpatient pain management and has been on a regimen including Lyrica and carbamazepine. On December 03, 2024, she visited the ED for similar complaints and received Dilaudid, followed by a pain management clinic visit where she was given corticosteroids IM. She states she was also given an intranasal lidocaine solution. These interventions failed to yield significant or sustained symptom relief. Today, she returned to the ED reporting unremitting pain. On exam, she was hypertensive (likely due to pain), but otherwise vitally stable. No focal neurological deficits were appreciated. She received [place] and Dilaudid with only mild pain relief. No laboratory studies or imaging were obtained during this ED visit. Given the severity and persistence of symptoms despite optimized outpatient therapy, she was admitted for intractable trigeminal neuralgia and will require inpatient pain management and neurology evaluation. Denies fever,cough, sob, cp, abdominal pain, EARLY, dizziness, N/V/D. No rashes or trauma. - Review of Systems Constitutional: No Symptoms Eyes: Eye Pain Ears, Nose, & Throat: Ear Pain, Other (back of head/face pain) Respiratory: No Symptoms Cardiac: No Symptoms Abdominal/Gastrointestinal: No Symptoms Genitourinary Symptoms: No Symptoms Musculoskeletal: No Symptoms Skin: No Symptoms Neurological: No Symptoms Psychological: No Symptoms Endocrine: No Symptoms Hematologic/Lymphatic: No Symptoms Immunological/Allergic: No Symptoms Medications & Allergies Home Medications: Home Medication List Esomeprazole Magnesium [Nexium] 40 mg PO DAILY 06/26/13 [History Confirmed 12/07/24] Metoprolol Succinate 25 mg Xl* [Toprol-Xl 25MG Tablets] 25 mg PO DAILY 06/26/13 [History Confirmed 12/07/24] Potassium Chloride [Klor-Con 10] 20 meq PO DAILY 06/26/13 [History Confirmed 12/07/24] carBAMazepine [Carbamazepine] 200 mg PO BID 06/26/13 [History Confirmed 12/07/24] Rivaroxaban [Xarelto] 20 mg PO DAILY #0 07/29/21 [Rx Confirmed 12/07/24] Metformin HCl 500 mg [Glucophage 500 MG] 500 mg PO HS 01/09/23 [History Confirmed 12/07/24] Enalapril Maleate [Vasotec] 10 mg PO DAILY 12/03/24 [History Confirmed 12/07/24] Pregabalin [Lyrica] 200 mg PO TID 12/03/24 [History Confirmed 12/07/24] hydroCHLOROthiazide [Hydrochlorothiazide] 12.5 mg PO DAILY 12/03/24 [History Confirmed 12/07/24] Semaglutide [Ozempic] 0.25 mg SQ WEEKLY 12/07/24 [History Confirmed 12/07/24] Allergies/Adverse Reactions: Allergies Allergy/AdvReac Type Severity Reaction Status Date / Time No Known Drug Allergies Allergy Verified 12/03/24 14:51 - Past Medical History Past Medical History: Yes Neurological History: Other ENT History: No Pertinent History Cardiac History: Deep Vein Thrombosis, Hypertension Respiratory History: Other (PE) Endocrine Medical History: Diabetes Type II, Other Musculoskelatal History: Other GI Medical History: GERD, Gallbladder Disease History: No Pertinent History Pyscho-Social History: No Pertinent History Reproductive Disorders: Fibroids Comment: L Rotator Cuff Repair, Trigeminal Neuralgia, Pre-Diabetic, COVID-19 x1, Sanchez's Palsy, Tonsillectomy (1962), Hysterectomy (01/1974), Ovary Removal (01/1975), L TKA (11/17/94), R TKA (01/26/95), Colonoscopy (07/13/2006, 07/22/2009, 08/05/2014), Cholecystectomy (12/03/2008), L Rotator Cuff Repair (08/17/2010), R BASILIO (12/25/13) - Past Surgical History Past Surgical History: Yes Neuro Surgical History: No Pertinent History Cardiac History: No Pertinent History Respiratory Surgery: No Pertinent History GI Surgical History: Cholecystectomy Genitourinary Surgical Hx: No Pertinent History Musculskeletal Surgical Hx: Joint Replacement, Orthopedic Surgery Female Surgical History: Hysterectomy, Other Other Surgical History: KNEE REPLACEMENTS bilateral, right hip replacement, ovary removed, 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 Significant Family History: heart disease, cancer, diabetes, stroke - Social History Smoking Status: Former smoker How long have you smoked: 2-3 yrs Exposure to second hand smoke: Yes Alcohol: None Drug Use: none - Social Determinants of Health Will the patient participate in the screening: Yes Do you worry about a steady place to live?: No Do you have any problems with any of the following?: No known problems In the past 12 months,have you had to go without utilities?: No Have you or anyone in your house had to go without enough: No Transportation Issues: No Has anyone in your support network made you feel unsafe?: No - Physical Exam Vital Signs: Vital Signs - 24 hr Temp Pulse Resp BP BP Pulse Ox 12/07/24 14:21 98 12/07/24 14:00 74 18 165/81 94 L 12/07/24 13:46 190/70 93 L 12/07/24 13:30 157/80 96 12/07/24 13:15 66 18 162/78 96 12/07/24 13:00 64 18 150/78 94 L 12/07/24 12:45 176/82 92 L 12/07/24 12:30 195/91 95 12/07/24 12:15 170/81 98 12/07/24 12:00 69 18 175/89 95 12/07/24 11:45 180/105 97 12/07/24 11:30 66 207/84 98 12/07/24 11:15 175/85 98 12/07/24 11:00 183/94 96 12/07/24 10:48 64 178/83 99 12/07/24 10:47 97.6 F 77 18 178/83 98 General Appearance: moderate distress Neurologic Exam: alert, oriented x 3, cooperative, other (Patient tearful on exam with rag over eyes due to sensitivity to light) Eye Exam: photophobia Ears, Nose, Throat Exam: dry mucous membranes Neck Exam: normal inspection Respiratory Exam: normal breath sounds, lungs clear Cardiovascular Exam: regular rate/rhythm, normal heart sounds Gastrointestinal/Abdomen Exam: soft, normal bowel sounds Pelvic Exam: not done Rectal Exam: deferred Back Exam: normal inspection Extremity Exam: normal inspection Skin Exam: normal color Assessment/Plan (1) Intractable pain Current Visit: Yes Status: Acute Assessment & Plan: Secondary to Refractory Trigeminal Neuralgia -Despite opioid administration in the ED and outpatient interventions, her pain has remained unrelieved, significantly impairing quality of life and likely contributing to hypertensive episodes -Pain management with Diluadid and norco -lidocaine patch prn -continue home meds lyrica/carbamazepine -solumedrol -Check carbamazepine level to assess for subtherapeutic dosing Code(s): R52 - PAIN, UNSPECIFIED (2) Trigeminal neuralgia Current Visit: Yes Status: Acute Assessment & Plan: -Continue Lyrica and carbamazepine; confirm doses and obtain carbamazepine level -Solumedrol -Neurology consult for medication and interventional recommendations -Pain control as stated above Code(s): G50.0 - TRIGEMINAL NEURALGIA (3) HTN (hypertension) Current Visit: Yes Status: Acute Assessment & Plan: -BP elevated on arrival due to pain- continue home medications monitor closely Code(s): I10 - ESSENTIAL (PRIMARY) HYPERTENSION (4) History of DVT (deep vein thrombosis) Current Visit: Yes Status: Acute Assessment & Plan: -Continue home xarelto -Also h/o of PE Code(s): Z86.718 - PERSONAL HISTORY OF OTHER VENOUS THROMBOSIS AND EMBOLISM (5) Diabetes mellitus Current Visit: Yes Status: Acute Qualifiers: Diabetes mellitus type: type 2 Assessment & Plan: -ADA diet -SSI low dose -adjust as needed with steroids -A1c VTE: Xarelto PPI: protonix Dispo: 1-2 days Code status: SCO Code(s): E11.9 - TYPE 2 DIABETES MELLITUS WITHOUT COMPLICATIONS Telemedicine Encounter - Telemedicine Encounter Telemedicine Encounter: "The entirety of this encounter was performed via Telemedicine" This visit was performed using real-time audio and video connection between my location and thepatients locationwith the assistance of a surrogateat the patients location. Written or verbal consent was obtained from the patient/guardian to perform this visit using[facility] [address] [facility]icine technology. Any patient questions regarding the telemedicine interaction were answered. <HE HOLLOWAY - Last Filed: 12/07/24 23:41> History of Present Illness - Chief Complaint History of Present Illness: is a 79 year old female. - Physical Exam Vital Signs: Vital Signs - 24 hr Temp Pulse Resp BP BP Pulse Ox 12/07/24 23:30 96.9 F 71 21 184/75 96 12/07/24 19:37 97.1 F 71 17 148/69 94 L 12/07/24 15:01 97.7 F 66 20 137/65 95 12/07/24 14:21 98 12/07/24 14:00 74 18 165/81 94 L 12/07/24 13:46 190/70 93 L 12/07/24 13:30 157/80 96 12/07/24 13:15 66 18 162/78 96 12/07/24 13:00 64 18 150/78 94 L 12/07/24 12:45 176/82 92 L 12/07/24 12:30 195/91 95 12/07/24 12:15 170/81 98 12/07/24 12:00 69 18 175/89 95 12/07/24 11:45 180/105 97 12/07/24 11:30 66 207/84 98 12/07/24 11:15 175/85 98 12/07/24 11:00 183/94 96 12/07/24 10:48 64 178/83 99 12/07/24 10:47 97.6 F 77 18 178/83 98 Results - Labs Lab/Micro Results: Lab Results-Last 24 Hours 12/07/24 12/07/24 12/07/24 Range/Units 16:01 16:01 16:01 WBC 5.8 (3.98-10.04) x10^3/uL RBC 4.92 (3.93-5.22) x10^6/uL Hgb 14.0 (11.2-15.7) g/dL Hct 42.5 (34.1-44.9) % MCV 86.4 (79.4-94.8) fL MCH 28.5 (25.6-32.2) pg MCHC 32.9 (32.2-35.5) g/dL RDW 14.1 (11.7-14.4) % Plt Count 185 (182-369) x10^3/uL MPV 9.2 L (9.4-12.3) fL Gran % 62.8 (34.0-71.1) % Immature Gran % (Auto) 0.3 (0.001-0.429) % Nucleat RBC Rel Count 0.0 (0.00-0.2) % Eos # (Auto) 0.08 (0.04-0.36) x10^3/uL Immature Gran # (Auto) 0.02 (0.001-0.031) x10^3u/L Absolute Lymphs (auto) 1.62 (1.18-3.74) x10^3/uL Absolute Monos (auto) 0.41 (0.24-0.86) x10^3/uL Absolute Nucleated RBC 0.00 (0.00-0.012) x10^3u/L Lymphocytes % 27.8 (19.3-51.7) % Monocytes % 7.0 (4.7-12.5) % Eosinophils % 1.4 (0.7-5.8) % Basophils % 0.7 (0.1-1.2) % Absolute Granulocytes 3.66 (1.56-6.13) x10^3/uL Basophils # 0.04 (0.01-0.08) x10^3/uL ESR 16 (0-20) mm/hr Sodium 141 (135-145) mmol/L Potassium 4.1 (3.5-5.1) mmol/L Chloride 107 (98-107) mmol/L Carbon Dioxide 23 (22-30) mmol/L Anion Gap 14.7 (5-15) MEQ/L BUN 39 H (7-17) mg/dL Creatinine 1.17 H (0.52-1.04) mg/dL Estimated GFR 46.9 ML/MIN Glucose 91 (74-106) mg/dL POC Glucometer (74 to 106) mg/dL Hemoglobin A1c (4.5-6.0) % Calcium 9.2 (8.4-10.2) mg/dL Total Bilirubin 0.50 (0.2-1.3) mg/dL AST 35 (14-36) U/L ALT 32 (0-35) U/L Alkaline Phosphatase 132 H (38-126) U/L Serum Total Protein 6.8 (6.3-8.2) g/dL Albumin 4.0 (3.5-5.0) g/dL Carbamazepine (4.0-12.0) ug/mL 07/26/25 07/26/25 07/26/25 Range/Units 16:01 16:01 16:48 WBC (3.98-10.04) x10^3/uL RBC (3.93-5.22) x10^6/uL Hgb (11.2-15.7) g/dL Hct (34.1-44.9) % MCV (79.4-94.8) fL MCH (25.6-32.2) pg MCHC (32.2-35.5) g/dL RDW (11.7-14.4) % Plt Count (182-369) x10^3/uL MPV (9.4-12.3) fL Gran % (34.0-71.1) % Immature Gran % (Auto) (0.001-0.429) % Nucleat RBC Rel Count (0.00-0.2) % Eos # (Auto) (0.04-0.36) x10^3/uL Immature Gran # (Auto) (0.001-0.031) x10^3u/L Absolute Lymphs (auto) (1.18-3.74) x10^3/uL Absolute Monos (auto) (0.24-0.86) x10^3/uL Absolute Nucleated RBC (0.00-0.012) x10^3u/L Lymphocytes % (19.3-51.7) % Monocytes % (4.7-12.5) % Eosinophils % (0.7-5.8) % Basophils % (0.1-1.2) % Absolute Granulocytes (1.56-6.13) x10^3/uL Basophils # (0.01-0.08) x10^3/uL ESR (0-20) mm/hr Sodium (135-145) mmol/L Potassium (3.5-5.1) mmol/L Chloride (98-107) mmol/L Carbon Dioxide (22-30) mmol/L Anion Gap (5-15) MEQ/L BUN (7-17) mg/dL Creatinine (0.52-1.04) mg/dL Estimated GFR ML/MIN Glucose (74-106) mg/dL POC Glucometer 77 (74 to 106) mg/dL Hemoglobin A1c 6.19 H (4.5-6.0) % Calcium (8.4-10.2) mg/dL Total Bilirubin (0.2-1.3) mg/dL AST (14-36) U/L ALT (0-35) U/L Alkaline Phosphatase (38-126) U/L Serum Total Protein (6.3-8.2) g/dL Albumin (3.5-5.0) g/dL Carbamazepine 3.5 L (4.0-12.0) ug/mL / Range/Units 22:21 WBC (3.98-10.04) x10^3/uL RBC (3.93-5.22) x10^6/uL Hgb (11.2-15.7) g/dL Hct (34.1-44.9) % MCV (79.4-94.8) fL MCH (25.6-32.2) pg MCHC (32.2-35.5) g/dL RDW (11.7-14.4) % Plt Count (182-369) x10^3/uL MPV (9.4-12.3) fL Gran % (34.0-71.1) % Immature Gran % (Auto) (0.001-0.429) % Nucleat RBC Rel Count (0.00-0.2) % Eos # (Auto) (0.04-0.36) x10^3/uL Immature Gran # (Auto) (0.001-0.031) x10^3u/L Absolute Lymphs (auto) (1.18-3.74) x10^3/uL Absolute Monos (auto) (0.24-0.86) x10^3/uL Absolute Nucleated RBC (0.00-0.012) x10^3u/L Lymphocytes % (19.3-51.7) % Monocytes % (4.7-12.5) % Eosinophils % (0.7-5.8) % Basophils % (0.1-1.2) % Absolute Granulocytes (1.56-6.13) x10^3/uL Basophils # (0.01-0.08) x10^3/uL ESR (0-20) mm/hr Sodium (135-145) mmol/L Potassium (3.5-5.1) mmol/L Chloride (98-107) mmol/L Carbon Dioxide (22-30) mmol/L Anion Gap (5-15) MEQ/L BUN (7-17) mg/dL Creatinine (0.52-1.04) mg/dL Estimated GFR ML/MIN Glucose (74-106) mg/dL POC Glucometer 106 (74 to 106) mg/dL Hemoglobin A1c (4.5-6.0) % Calcium (8.4-10.2) mg/dL Total Bilirubin (0.2-1.3) mg/dL AST (14-36) U/L ALT (0-35) U/L Alkaline Phosphatase (38-126) U/L Serum Total Protein (6.3-8.2) g/dL Albumin (3.5-5.0) g/dL Carbamazepine (4.0-12.0) ug/mL Accuchecks Date 12/07/24 Telemedicine Encounter - Telemedicine Encounter Telemedicine Encounter: "The entirety of this encounter was performed via Telemedicine" This visit was performed using real-time audio and video connection between my location and thepatients locationwith the assistance of a surrogateat the patients location. Written or verbal consent was obtained from the patient/guardian to perform this visit using[employer] technology. Any patient questions regarding the telemedicine interaction were answered. KELLY Encounter - KELLY Encounter Attestation KELLY Encounter Attestation: "IhorlandopersonallyseenandexaminedDOMINICK MEJIA andhavediscussed pertinent aspects of their care with [place] agree with the history, physical exam (any modifications based on my personal exam will be noted below), assessment, and plan as outlined in original note. Please see immediately below for my summary of findings and additional assessment and plan along with any meaningful corrections/explanations to the Subjective/Objective portions of the KELLY note will be noted." My portion of the encounter took place via telemedicine. -Patient presenting with intractable pain due to trigeminal neuralgia necessitating inpatient admission for IV narcotic pain meds, IV steroids. Will consult neurology for further assistance.
[2024-12-07] MEDS ORDERED: Zofran 4 MG/2 ML VIAL IV PRN (15:30)
[2024-12-07] MEDS ORDERED: Hydromorphone 1 mg/ml Injection IV PRN (15:30)
[2024-12-07] MEDS ORDERED: NORCO 10-325 MG PO PRN (15:30)
[2024-12-07] MEDS ORDERED: Narcan 0.4 MG/ML IV PRN (15:44)
[2024-12-07] MEDS ORDERED: Lidoderm Patch 5% ONE (15:58)
[2024-12-07] MEDS ORDERED: Sterile H2O 10 ml IJ ONE ×2 (15:58→22:20)
[2024-12-07 16:02] LABS: BASOPHIL % 0.7 % (0.1-1.2); Basophil (Absolute #) 0.04 x10^3/uL (0.01-0.08); Eosinophil (Absolute #) 0.08 x10^3/uL (0.04-0.36); Hematocrit 42.5 % (34.1-44.9); Hemoglobin 14.0 g/dL (11.2-15.7); IMMATURE GRAN # 0.02 x10^3u/L (0.001-0.031); IMMATURE GRAN % 0.3 % (0.001-0.429); Lymphocyte (Absolute #) 1.62 x10^3/uL (1.18-3.74); Mean Corpuscular Hemoglobin 28.5 pg (25.6-32.2); Mean Corpuscular Hgb Concent. 32.9 g/dL (32.2-35.5); Monocyte (Absolute #) 0.41 x10^3/uL (0.24-0.86); NUCLEATED RBC # 0.00 x10^3u/L (0.00-0.012); NUCLEATED RBC % 0.0 % (0.00-0.2); Platelet Count 185 x10^3/uL (182-369); Red Blood Count 4.92 x10^6/uL (3.93-5.22); White Blood Count 5.8 x10^3/uL (3.98-10.04)
[2024-12-07] MEDS: solu-MEDROL 40 MG, Sterile H2O 10 ml 1 ML IV SCH (16:03)
[2024-12-07] MEDS: Lidoderm Patch 5% TOP SCH (16:04)
[2024-12-07 16:14] LABS: Calcium 9.2 mg/dL (8.4-10.2); Carbon Dioxide 23.0 mmol/L (22-30); Creatinine 1 1.17 mg/dL (0.52-1.04); EST GLOMERULAR FILTRATION RATE 46.9 ML/MIN; Glucose 91.0 mg/dL (74-106); Potassium 4.1 mmol/L (3.5-5.1); SGOT/AST 35.0 U/L (14-36); SGPT/ALT 32.0 U/L (0-35); Total Protein 6.8 g/dL (6.3-8.2)
[2024-12-07] MEDS: Hydromorphone 1 mg/ml Injection IV PRN (18:07)
[2024-12-07] MEDS: PROTONIX 40 MG IV IV SCH (18:11)
[2024-12-07] MEDS ORDERED: Lyrica 50MG ONE (22:19)
[2024-12-07] MEDS: LYRICA 150MG PO SCH (22:26)
[2024-12-07] MEDS: Tegretol 200 MG PO SCH (22:32)
[2024-12-08] MEDS ORDERED: Hydromorphone 1 mg/ml Injection ONE (05:13)
[2024-12-08 06:29] LABS: BASOPHIL % 0.2 % (0.1-1.2); Basophil (Absolute #) 0.01 x10^3/uL (0.01-0.08); Eosinophil (Absolute #) 0 x10^3/uL (0.04-0.36); Hematocrit 43.1 % (34.1-44.9); Hemoglobin 14.0 g/dL (11.2-15.7); IMMATURE GRAN # 0.02 x10^3u/L (0.001-0.031); IMMATURE GRAN % 0.3 % (0.001-0.429); Lymphocyte (Absolute #) 0.93 x10^3/uL (1.18-3.74); Mean Corpuscular Hemoglobin 27.9 pg (25.6-32.2); Mean Corpuscular Hgb Concent. 32.5 g/dL (32.2-35.5); Monocyte (Absolute #) 0.17 x10^3/uL (0.24-0.86); NUCLEATED RBC # 0.00 x10^3u/L (0.00-0.012); NUCLEATED RBC % 0.0 % (0.00-0.2); Platelet Count 208 x10^3/uL (182-369); Red Blood Count 5.01 x10^6/uL (3.93-5.22); White Blood Count 6.3 x10^3/uL (3.98-10.04)
[2024-12-08 06:52] LABS: Calcium 9.0 mg/dL (8.4-10.2); Carbon Dioxide 19.0 mmol/L (22-30); Creatinine 1 0.88 mg/dL (0.52-1.04); EST GLOMERULAR FILTRATION RATE 66.0 ML/MIN; Glucose 119.0 mg/dL (74-106); Potassium 4.9 mmol/L (3.5-5.1); SGOT/AST 34.0 U/L (14-36); SGPT/ALT 33.0 U/L (0-35); Total Protein 6.8 g/dL (6.3-8.2)
[2024-12-08] MEDS ORDERED: NON-FORMULARY ITEM (Esomeprazole Magnesium [Nexium] 40 MG Capsule.Dr) PO SCH (10:00)
[2024-12-08] MEDS ORDERED: NON-FORMULARY ITEM (Rivaroxaban [Xarelto] 20 MG Tablet) PO SCH (10:00)
[2024-12-08] MEDS ORDERED: ENALAPRIL MALEATE 10 MG PO SCH (10:00)
--- NOTE | 2024-12-08 10:23 | PCM.NOTE ---
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 She rates the pain 10/10 on numerical pain scale. She is followed by outpatient pain management and has been on a regimen including Lyrica and carbamazepine. On December 03, 2024, she visited the ED for similar complaints and received Dilaudid, followed by a pain management clinic visit where she was given corticosteroids IM. She states she was also given an intranasal lidocaine solution. These interventions failed to yield significant or sustained symptom relief. Today, she returned to the ED reporting unremitting pain. On exam, she was hypertensive (likely due to pain), but otherwise vitally stable. No focal neurological deficits were appreciated. She received [place] and Dilaudid with only mild pain relief. No laboratory studies or imaging were obtained during this ED visit. Given the severity and persistence of symptoms despite optimized outpatient therapy, she was admitted for intractable trigeminal neuralgia and will require inpatient pain management and neurology evaluation. Denies fever,cough, sob, cp, abdominal pain, EARLY, dizziness, N/V/D. No rashes or trauma. 12/08: Met with patient bedside. Endorses continued severe pain to right face rating 8/10 on numerical pain scale. She reports some relief with pain meds and solu- medrol. Neurology eval still pending. Plan for continued pain control with recs pending from Neurology. Patient may benefit from nerve block/ablation. - Review of Systems Constitutional: No Symptoms Eyes: No Symptoms Ears, Nose, & Throat: Other (Facial pain 2/2 trigeminal neuralgia) Respiratory: No Symptoms Cardiac: No Symptoms Abdominal/Gastrointestinal: No Symptoms Genitourinary Symptoms: No Symptoms Musculoskeletal: No Symptoms Skin: No Symptoms Neurological: No Symptoms Psychological: No Symptoms Endocrine: No Symptoms Hematologic/Lymphatic: No Symptoms Immunological/Allergic: No Symptoms Objective Exam General Appearance: other (Patient moaning in pain on exam) Neurologic Exam: alert, oriented x 3 Skin Exam: normal color Eye Exam: photophobia Ears, Nose, Throat Exam: normal ENT inspection Neck Exam: normal inspection Respiratory Exam: normal breath sounds, lungs clear Cardiovascular Exam: regular rate/rhythm, normal heart sounds Gastrointestinal/Abdomen Exam: soft, normal bowel sounds Extremity Exam: normal inspection Objective Data Vital Signs: Vital Signs - 24 hr Temp Pulse Resp BP BP Pulse Ox 12/08/24 07:47 97.9 F 72 20 144/70 95 12/07/24 23:30 96.9 F 71 21 184/75 96 12/07/24 19:37 97.1 F 71 17 148/69 94 L 12/07/24 15:01 97.7 F 66 20 137/65 95 12/07/24 14:21 98 12/07/24 14:00 74 18 165/81 94 L 12/07/24 13:46 190/70 93 L 12/07/24 13:30 157/80 96 12/07/24 13:15 66 18 162/78 96 12/07/24 13:00 64 18 150/78 94 L 12/07/24 12:45 176/82 92 L 12/07/24 12:30 195/91 95 12/07/24 12:15 170/81 98 12/07/24 12:00 69 18 175/89 95 12/07/24 11:45 180/105 97 12/07/24 11:30 66 207/84 98 12/07/24 11:15 175/85 98 12/07/24 11:00 183/94 96 12/07/24 10:48 64 178/83 99 12/07/24 10:47 97.6 F 77 18 178/83 98 Pain Assessment - Last Documented Pain Intensity 10 Pain Scale Used 0-10 Pain Scale Intake and Output: Intake & Output 12/05/24 12/06/24 12/07/24 12/08/24 11:59 11:59 11:59 11:59 Intake Total 1076 Balance 1076 Weight 73.2 kg 73.4 kg Lab Results: Lab Results-Last 24 Hours 12/07/24 12/07/24 12/07/24 Range/Units 16:01 16:01 16:01 WBC 5.8 (3.98-10.04) x10^3/uL RBC 4.92 (3.93-5.22) x10^6/uL Hgb 14.0 (11.2-15.7) g/dL Hct 42.5 (34.1-44.9) % MCV 86.4 (79.4-94.8) fL MCH 28.5 (25.6-32.2) pg MCHC 32.9 (32.2-35.5) g/dL RDW 14.1 (11.7-14.4) % Plt Count 185 (182-369) x10^3/uL MPV 9.2 L (9.4-12.3) fL Gran % 62.8 (34.0-71.1) % Immature Gran % (Auto) 0.3 (0.001-0.429) % Nucleat RBC Rel Count 0.0 (0.00-0.2) % Eos # (Auto) 0.08 (0.04-0.36) x10^3/uL Immature Gran # (Auto) 0.02 (0.001-0.031) x10^3u/L Absolute Lymphs (auto) 1.62 (1.18-3.74) x10^3/uL Absolute Monos (auto) 0.41 (0.24-0.86) x10^3/uL Absolute Nucleated RBC 0.00 (0.00-0.012) x10^3u/L Lymphocytes % 27.8 (19.3-51.7) % Monocytes % 7.0 (4.7-12.5) % Eosinophils % 1.4 (0.7-5.8) % Basophils % 0.7 (0.1-1.2) % Absolute Granulocytes 3.66 (1.56-6.13) x10^3/uL Basophils # 0.04 (0.01-0.08) x10^3/uL ESR 16 (0-20) mm/hr Sodium 141 (135-145) mmol/L Potassium 4.1 (3.5-5.1) mmol/L Chloride 107 (98-107) mmol/L Carbon Dioxide 23 (22-30) mmol/L Anion Gap 14.7 (5-15) MEQ/L BUN 39 H (7-17) mg/dL Creatinine 1.17 H (0.52-1.04) mg/dL Estimated GFR 46.9 ML/MIN Glucose 91 (74-106) mg/dL POC Glucometer (74 to 106) mg/dL Hemoglobin A1c (4.5-6.0) % Calcium 9.2 (8.4-10.2) mg/dL Total Bilirubin 0.50 (0.2-1.3) mg/dL AST 35 (14-36) U/L ALT 32 (0-35) U/L Alkaline Phosphatase 132 H (38-126) U/L Serum Total Protein 6.8 (6.3-8.2) g/dL Albumin 4.0 (3.5-5.0) g/dL Carbamazepine (4.0-12.0) ug/mL 12/07/24 12/07/24 12/07/24 Range/Units 16:01 16:01 16:48 WBC (3.98-10.04) x10^3/uL RBC (3.93-5.22) x10^6/uL Hgb (11.2-15.7) g/dL Hct (34.1-44.9) % MCV (79.4-94.8) fL MCH (25.6-32.2) pg MCHC (32.2-35.5) g/dL RDW (11.7-14.4) % Plt Count (182-369) x10^3/uL MPV (9.4-12.3) fL Gran % (34.0-71.1) % Immature Gran % (Auto) (0.001-0.429) % Nucleat RBC Rel Count (0.00-0.2) % Eos # (Auto) (0.04-0.36) x10^3/uL Immature Gran # (Auto) (0.001-0.031) x10^3u/L Absolute Lymphs (auto) (1.18-3.74) x10^3/uL Absolute Monos (auto) (0.24-0.86) x10^3/uL Absolute Nucleated RBC (0.00-0.012) x10^3u/L Lymphocytes % (19.3-51.7) % Monocytes % (4.7-12.5) % Eosinophils % (0.7-5.8) % Basophils % (0.1-1.2) % Absolute Granulocytes (1.56-6.13) x10^3/uL Basophils # (0.01-0.08) x10^3/uL ESR (0-20) mm/hr Sodium (135-145) mmol/L Potassium (3.5-5.1) mmol/L Chloride (98-107) mmol/L Carbon Dioxide (22-30) mmol/L Anion Gap (5-15) MEQ/L BUN (7-17) mg/dL Creatinine (0.52-1.04) mg/dL Estimated GFR ML/MIN Glucose (74-106) mg/dL POC Glucometer 77 (74 to 106) mg/dL Hemoglobin A1c 6.19 H (4.5-6.0) % Calcium (8.4-10.2) mg/dL Total Bilirubin (0.2-1.3) mg/dL AST (14-36) U/L ALT (0-35) U/L Alkaline Phosphatase (38-126) U/L Serum Total Protein (6.3-8.2) g/dL Albumin (3.5-5.0) g/dL Carbamazepine 3.5 L (4.0-12.0) ug/mL 12/07/24 12/08/24 12/08/24 Range/Units 22:21 05:30 05:30 WBC 6.3 (3.98-10.04) x10^3/uL RBC 5.01 (3.93-5.22) x10^6/uL Hgb 14.0 (11.2-15.7) g/dL Hct 43.1 (34.1-44.9) % MCV 86.0 (79.4-94.8) fL MCH 27.9 (25.6-32.2) pg MCHC 32.5 (32.2-35.5) g/dL RDW 14.2 (11.7-14.4) % Plt Count 208 (182-369) x10^3/uL MPV 9.5 (9.4-12.3) fL Gran % 81.9 H (34.0-71.1) % Immature Gran % (Auto) 0.3 (0.001-0.429) % Nucleat RBC Rel Count 0.0 (0.00-0.2) % Eos # (Auto) 0 L (0.04-0.36) x10^3/uL Immature Gran # (Auto) 0.02 (0.001-0.031) x10^3u/L Absolute Lymphs (auto) 0.93 L (1.18-3.74) x10^3/uL Absolute Monos (auto) 0.17 L (0.24-0.86) x10^3/uL Absolute Nucleated RBC 0.00 (0.00-0.012) x10^3u/L Lymphocytes % 14.9 L (19.3-51.7) % Monocytes % 2.7 L (4.7-12.5) % Eosinophils % 0.0 L (0.7-5.8) % Basophils % 0.2 (0.1-1.2) % Absolute Granulocytes 5.12 (1.56-6.13) x10^3/uL Basophils # 0.01 (0.01-0.08) x10^3/uL ESR (0-20) mm/hr Sodium 139 (135-145) mmol/L Potassium 4.9 (3.5-5.1) mmol/L Chloride 110 H (98-107) mmol/L Carbon Dioxide 19 L (22-30) mmol/L Anion Gap 14.8 (5-15) MEQ/L BUN 37 H (7-17) mg/dL Creatinine 0.88 (0.52-1.04) mg/dL Estimated GFR 66.0 ML/MIN Glucose 119 H (74-106) mg/dL POC Glucometer 106 (74 to 106) mg/dL Hemoglobin A1c (4.5-6.0) % Calcium 9.0 (8.4-10.2) mg/dL Total Bilirubin 0.50 (0.2-1.3) mg/dL AST 34 (14-36) U/L ALT 33 (0-35) U/L Alkaline Phosphatase 134 H (38-126) U/L Serum Total Protein 6.8 (6.3-8.2) g/dL Albumin 4.0 (3.5-5.0) g/dL Carbamazepine (4.0-12.0) ug/mL 12/08/24 Range/Units 07:09 WBC (3.98-10.04) x10^3/uL RBC (3.93-5.22) x10^6/uL Hgb (11.2-15.7) g/dL Hct (34.1-44.9) % MCV (79.4-94.8) fL MCH (25.6-32.2) pg MCHC (32.2-35.5) g/dL RDW (11.7-14.4) % Plt Count (182-369) x10^3/uL MPV (9.4-12.3) fL Gran % (34.0-71.1) % Immature Gran % (Auto) (0.001-0.429) % Nucleat RBC Rel Count (0.00-0.2) % Eos # (Auto) (0.04-0.36) x10^3/uL Immature Gran # (Auto) (0.001-0.031) x10^3u/L Absolute Lymphs (auto) (1.18-3.74) x10^3/uL Absolute Monos (auto) (0.24-0.86) x10^3/uL Absolute Nucleated RBC (0.00-0.012) x10^3u/L Lymphocytes % (19.3-51.7) % Monocytes % (4.7-12.5) % Eosinophils % (0.7-5.8) % Basophils % (0.1-1.2) % Absolute Granulocytes (1.56-6.13) x10^3/uL Basophils # (0.01-0.08) x10^3/uL ESR (0-20) mm/hr Sodium (135-145) mmol/L Potassium (3.5-5.1) mmol/L Chloride (98-107) mmol/L Carbon Dioxide (22-30) mmol/L Anion Gap (5-15) MEQ/L BUN (7-17) mg/dL Creatinine (0.52-1.04) mg/dL Estimated GFR ML/MIN Glucose (74-106) mg/dL POC Glucometer 110 H (74 to 106) mg/dL Hemoglobin A1c (4.5-6.0) % Calcium (8.4-10.2) mg/dL Total Bilirubin (0.2-1.3) mg/dL AST (14-36) U/L ALT (0-35) U/L Alkaline Phosphatase (38-126) U/L Serum Total Protein (6.3-8.2) g/dL Albumin (3.5-5.0) g/dL Carbamazepine (4.0-12.0) ug/mL Medications: Medications Generic Name Dose Route Start Last Admin Trade Name Freq PRN Reason Stop Dose Admin Acetaminophen 650 mg 12/07/24 15:30 Acetaminophen 325 Mg Tablet PO 01/06/25 15:29 Q4H PRN PRN PAIN, FEVER, HEADACHE Carbamazepine 200 mg 12/07/24 22:00 12/07/24 22:32 Carbamazepine 200 Mg Tablet PO 01/06/25 21:59 200 mg BID JOHNATHAN Administration Methylprednisolone Sodium 0 mg 12/07/24 15:30 12/07/24 22:25 Succinate 40 mg/ Sterile Water IV 01/06/25 15:29 40 mg 1 ml Q12HT JOHNATHAN Administration Hydromorphone HCl 0.5 mg 12/07/24 15:44 12/08/24 08:29 Hydromorphone 1 Mg/1ml Inj IV 12/12/24 15:42 0.5 mg Q2H PRN PRN Administration PAIN Sodium Chloride 1,000 mls @ 75 mls/hr 12/07/24 16:30 12/08/24 07:35 Sodium Chloride 0.9% 1000 Ml IV 01/06/25 16:29 75 mls/hr .[id number] JOHNATHAN Administration Insulin Human Lispro 0 unit 12/07/24 15:30 Insulin Lispro 1 Unit SQ 01/06/25 15:29 UD PRN HYPERGLYCEMIA Lidocaine 1 patch 12/08/24 10:00 12/07/24 16:04 Lidocaine Hcl 1 Patch Patch TOP 01/07/25 09:59 1 patch DAILY JOHNATHAN Administration Lisinopril 20 mg 12/08/24 10:00 Lisinopril 20 Mg Tablet PO 01/07/25 09:59 DAILY JOHNATHAN Metoprolol Succinate 25 mg 12/08/24 10:00 Metoprolol Succinate 25 Mg Xl Tab PO 01/07/25 09:59 DAILY JOHNATHAN Naloxone HCl 0.4 mg 12/07/24 15:44 Naloxone Hcl 0.4 Mg/Ml Ml IV 01/06/25 15:43 PRN PRN OVERDOSE Non-Formulary Medication 1 each 12/08/24 22:00 Remove Patch 1 Each TOP 01/07/25 21:59 HS JOHNATHAN Ondansetron HCl 4 mg 12/07/24 15:30 Ondansetron Hcl 4 Mg/2 Ml Vial IV 01/06/25 15:29 Q6H PRN PRN NAUSEA/VOMITING Pantoprazole Sodium 40 mg 12/08/24 10:00 Pantoprazole 40 Mg Vial IV 01/06/25 16:29 DAILY JOHNATHAN Potassium Chloride 20 meq 12/08/24 10:00 Potassium Chloride Tab 10 Meq Tab PO 01/07/25 09:59 DAILY JOHNATHAN Pregabalin 200 mg 12/08/24 10:00 Pregabalin 100 Mg Capsule PO 01/07/25 09:59 TID JOHNATHAN Rivaroxaban 20 mg 12/08/24 10:00 Rivaroxaban 10 Mg Tablet PO 01/07/25 09:59 DAILY JOHNATHAN Discontinued Medications Generic Name Dose Route Start Last Admin Trade Name Freq PRN Reason Stop Dose Admin Hydrocodone Bitart/Acetaminophen 2 tab 12/07/24 11:23 12/07/24 11:36 Hydrocodone/Apap 5/325 1 Tab Tablet PO 12/07/24 11:24 2 tab STAT ONE Administration Hydrocodone Bitart/Acetaminophen Confirm 12/07/24 11:36 Hydrocodone/Apap 5/325 1 Tab Tablet Administered 12/07/24 11:37 Dose 2 tab .ROUTE .STK-MED ONE Hydrocodone Bitart/Acetaminophen 1 tablet 12/07/24 15:30 Hydrocodone/Acetamin 10-325 Mg Tablet PO 12/12/24 15:29 Q4H PRN PRN PAIN Hydromorphone HCl 1 mg 12/07/24 13:01 12/07/24 13:18 Hydromorphone 1 Mg/1ml Inj IV 12/07/24 13:02 1 mg STAT ONE Administration Hydromorphone HCl Confirm 12/07/24 13:18 Hydromorphone 1 Mg/1ml Inj Administered 12/07/24 13:19 Dose 1 mg .ROUTE .STK-MED ONE Hydromorphone HCl 1 mg 12/07/24 15:30 Hydromorphone 1 Mg/1ml Inj IV 12/12/24 15:29 Q4H PRN PRN PAIN Hydromorphone HCl Confirm 12/08/24 05:13 Hydromorphone 1 Mg/1ml Inj Administered 12/08/24 05:14 Dose 1 mg .ROUTE .STK-MED ONE Sodium Chloride Confirm 12/08/24 07:31 Sodium Chloride 0.9% 1000 Ml Administered 12/08/24 07:32 Dose 1,000 mls @ ud .ROUTE .STK-MED ONE Lidocaine Confirm 12/07/24 15:58 Lidocaine Hcl 1 Patch Patch Administered 12/07/24 15:59 Dose 1 patch .ROUTE .STK-MED ONE Methylprednisolone Sodium Succinate Confirm 12/07/24 15:58 Methylprednisolone Sod Suc 40m 40 Mg/Ml Vial Administered 12/07/24 15:59 Dose 40 mg .ROUTE .STK-MED ONE Methylprednisolone Sodium Succinate Confirm 12/07/24 22:20 Methylprednisolone Sod Suc 40m 40 Mg/Ml Vial Administered 12/07/24 22:21 Dose 40 mg .ROUTE .STK-MED ONE Non-Formulary Medication 40 mg 12/08/24 10:00 Esomeprazole Magnesium [Nexium] PO 01/07/25 09:59 DAILY JOHNATHAN Pantoprazole Sodium 40 mg 12/07/24 16:30 12/07/24 18:11 Pantoprazole 40 Mg Vial IV 01/06/25 16:29 40 mg Q24H JOHNATHAN Administration Pregabalin 200 mg 12/07/24 22:00 12/07/24 22:26 Pregabalin 150 Mg Capsule PO 01/06/25 21:59 200 mg TID JOHNATHAN Administration Pregabalin Confirm 12/07/24 22:19 Pregabalin 50 Mg Capsule Administered 12/07/24 22:20 Dose 50 mg .ROUTE .STK-MED ONE Sterile Water Confirm 12/07/24 15:58 Water For Injection,Sterile 10 Ml Vial Administered 12/07/24 15:59 Dose 10 ml IJ .STK-MED ONE Sterile Water Confirm 12/07/24 22:20 Water For Injection,Sterile 10 Ml Vial Administered 12/07/24 22:21 Dose 10 ml IJ .STK-MED ONE Assessment/Plan (1) Intractable pain Current Visit: Yes Status: Acute Assessment & Plan: Secondary to Refractory Trigeminal Neuralgia -Despite opioid administration in the ED and outpatient interventions, her pain has remained unrelieved, significantly impairing quality of life and likely contributing to hypertensive episodes -Pain management with Diluadid and norco -lidocaine patch prn -continue home meds lyrica/carbamazepine -solumedrol -Check carbamazepine level to assess for subtherapeutic dosing 12/08: -Continue Diluadid q2h and solumedrol for pain relief - add cooling/heat pad -Carbamazepine at subterapeutic dosing - will defer to neurology for any med devang nge recommendations -Neurology consult pending - appreciate recs -Patient may need OP nerve block/ablation -Cmp/cbc reviewed Code(s): R52 - PAIN, UNSPECIFIED (2) Trigeminal neuralgia Current Visit: Yes Status: Acute Assessment & Plan: -Continue Lyrica and carbamazepine; confirm doses and obtain carbamazepine level -Solumedrol -Neurology consult for medication and interventional recommendations -Pain control as stated above Code(s): G50.0 - TRIGEMINAL NEURALGIA (3) HTN (hypertension) Current Visit: Yes Status: Acute Assessment & Plan: -BP elevated on arrival due to pain- continue home medications monitor closely Code(s): I10 - ESSENTIAL (PRIMARY) HYPERTENSION (4) History of DVT (deep vein thrombosis) Current Visit: Yes Status: Acute Assessment & Plan: -Continue home xarelto -Also h/o of PE Code(s): Z86.718 - PERSONAL HISTORY OF OTHER VENOUS THROMBOSIS AND EMBOLISM (5) Diabetes mellitus Current Visit: Yes Status: Acute Qualifiers: Diabetes mellitus type: type 2 Assessment & Plan: -ADA diet -SSI low dose -adjust as needed with steroids -A1c VTE: Xarelto PPI: protonix Dispo: 1-2 days Code status: SCO Code(s): R52 - PAIN, UNSPECIFIED (2) Trigeminal neuralgia Current Visit: Yes Status: Acute Code(s): G50.0 - TRIGEMINAL NEURALGIA (3) HTN (hypertension) Current Visit: Yes Status: Acute Code(s): I10 - ESSENTIAL (PRIMARY) HYPERTENSION (4) History of DVT (deep vein thrombosis) Current Visit: Yes Status: Acute Code(s): Z86.718 - PERSONAL HISTORY OF OTHER VENOUS THROMBOSIS AND EMBOLISM (5) Diabetes mellitus Current Visit: Yes Status: Acute Qualifiers: Diabetes mellitus type: type 2 Code(s): E11.9 - TYPE 2 DIABETES MELLITUS WITHOUT COMPLICATIONS
[2024-12-08] MEDS: XARELTO 10 MG TABLET PO SCH ×2 (11:02→21:36)
[2024-12-08] MEDS: Klor Con PO SCH (11:02)
[2024-12-08] MEDS: PROTONIX 40 MG IV IV SCH (11:02)
[2024-12-08] MEDS: LYRICA 100MG PO SCH (11:03)
[2024-12-08] MEDS: Toprol-Xl 25MG Tablets PO SCH (11:03)
[2024-12-08] MEDS: Zestril 20 MG PO SCH (11:03)
--- NOTE | 2024-12-08 14:45 | PCM.CONS ---
History of Present Illness - Neuro Consultation Date of Consultation Date: 12/08/24 ED Arrival Date & Time: 12/07/24 10:39 * Required General Template * Patient identity was confirmed at the beginning of the consult with the patient/family/staff using two personal identifiers * Clear Dominick Galdamez Female , 79 y.o. (1945) Hospital Clock 14:12 EDT [facility] - [place] See more Neuro Cohort 2 Neuro Emergency Patient Location and Admission Status * Chief Complaint * R TRIGEMINAL NEURALGIA, INTRACTABLE PAIN HISTORY OF PRESENT ILLNESS Family members and medical staff present * DR. BENITEZ History of present illness (Include relevant elements: Location, Severity, Timing, Quality, Duration, Context, Modifying Factors, Signs, Symptoms) * Patient is an 79 yr. old RH woman who presents to the hospital..... secondary to severe intractable 1 week hx of pain for R trigeminal neuralgia/ was placed on steroids/ dilaudid/ anti-inflammatory agents/ lidocaine patch / Solumedrol IV..... no hx of facial trauma or facial injury.... 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 case reviewed w Dr. Benitez... plan IV solumedrol as delineated in plan/ Increase Tegretol/ and Lyrica..... and future MRI Brain w tim/ MRA head/neck w tim/ as well as Neurosurgical eval for skull based decompression evaluation for intractable R Trigeminal neuralgia..... Review Of Systems Review Of Systems Guide Pertinent Review of Systems * Review of Systems * Constitutional: Denies fevers, chills, weight loss ENT: Denies tinnitus Ophthalmology: Denies diplopia, blurred vision, vision loss Respiratory: Denies SOB, cough Cardiovascular: Denies chest pains, palpitations GI: Denies nausea, vomiting : Denies hematuria Hematology: Denies excessive bleeding Musculoskeletal: Denies back pain, neck pain, joint pain Neurology: Denies headache, altered mentation Mental Health: Denies anxiety Dermatology: Denies rash To my knowledge, this ROS is complete and accurate * Medical History Unable to assess Medical History * Clear Past Medical History Includes Other Medical History Past Procedures Clear Other Past Procedures R hip ORIF bilateral patellar replacements Allergies Unable to assess Allergies * Clear Other Allergies Medications Unable to assess Anti-Coagulants * Clear Xarelto 20mg q day Anti-Platelets * Clear Other Medications lYrica 200mg TID Ozempic 0.25mg q week KCl 20 me q Metformin 500mg q day Enalapril 10mg q day HCTZ 12.5mg qday Xarelto 20mg q day Tegretol 200mg BID - IV solumedrol completed..... 40mg IV q 12 hrs..... Social History * Alcohol Use Clear Illicit Drug Use Clear Tobacco Use Clear Other Social History lives at home Family History Pertinent Family History * Clear Other Family History Vital Signs * Unable to obtain Date & Time 12/08 01:22 Recorded By jose reyes Afebrile Temperature (F/C) 97.4 / 36.3 Blood Pressure 157/72 mm Hg Heart Rate 69 bpm Respiration Rate 18 bpm O2 Sat 97 % POC Glucose Weight LB/KG 161.8 / 73.4 BMI Means of Collecting Patient Weight Patient weighed at hospital Pain Assessment 0 -None Oxy.Delivery Room Air EKG Rhythm Sinus Rhythm Comments Exam Exam * Neuro exam: Patient awake/ alert/ oriented in 4 spheres. Speech is fluent/ naming is intact/ Repetition intact/ no evidence of aphasia noted. No dysarthria noted. collar setter - pupils (=) 4-2mm bilaterally/ EOMs intact in all directions of gaze/symmetric facial sensation V1-2 -3 bilaterally- R trigeminal neuralgia..../ symmetrical facial upper/ lower noted/ audition intact/ tongue midline/ phonation intact/ + gag reflex intact/ SCMs(=) Motor exam- no pronator drift/ 4/5+ bilateral UEs/ LEs proximal to distal Sensory-intact to light touch throughout bilateral UEs/ LEs/ no agraphesthesia/ no astereognosis/ no double simultaneous extinction DTRs- deferred/ no babinski sign illicited Cerebellar- finger to nose/ heel-saavedra (=)/ no dysmetria noted/ no overshoot nystagmus/ no rebound phenomenon Gait- not tested Fine motor- no resting tremor/ no myoclonus/ no abnormal involuntary movements/ no choreiform movements Gen: No apparent distress, non-toxic appearing Psych: normal affect HEENT: No visible bruising, no mucosal pallor Ophth: No scleral icterus, no conjunctival injection or proptosis Neck: No nuchal rigidity, turns neck without difficulty Resp: normal respirations, no distress, speaking in full sentences CV: No visible edema in LE Abd: No abd distention noted MSK: No joint swelling, erythema noted. No contractures noted. Skin: No pallor. No visible rashes or bruising Clinician assisting with exam GERARDO Bang NIH Stroke Scale Unable to assess Recorded by: reyes jose Recorded On: 12/08 01:22 NIH Stroke Scale Score: 0 see details labs And Imaging I reviewed labs Clear I reviewed diagnostic reports such as radiological imaging, echocardiogram, and EEG reports Clear I personally reviewed diagnostics such as radiological images and electroencephalograms Clear Labs and Imaging Comments * MRI brain - not completed CT scan br- none Na+ 139 K+ 4.9 BUN 37/ Cr 0.88 CBC w diff- WNL Assessment Assessment * (To include Patient Summary, Differential Diagnoses, Medical Reasoning, and Diagnosis) 1. R atypical facial pain/ Refractor R trigeminal neuralgia Diagnosis Diagnosis * Refractory R trigeminal neuralgia Case Discussed With * Dr. Benitez Recommendations Recommendations * - MRI brain w tim - MRA head/ neck w Gadolineum - (stat) TSH, B12, SPEP w IPEP, ESR, CRP, ANCA panel, ABY, Angiotensin converting enzyme levels, Beta 2 microglobulin - begin (stat) initiation of Solumedrol IV 15mg/kg/day. x 3 days ( induction therapy) followed by 1mg/kg/ day x 3 days but due to visual symptoms recommend 80- 100mg oral Prednisone per Rheumatology suggestion usually 4 week duration prior to slow taper ( DO NOT DELAY IV Solumedrol treatment for TA biopsy completion - due to acute visual loss) - begin Pepcid 20mg PO BID - monitor IL- 6 activity for underlying inflammatory activity, as well as ESR and CRP levels ongoing - Rheumatology eval - Neurosurgical eval for skull based decompression R trigeminal nv. - Increase Lyrica to CR version total 330mg q day- titrate over next week to 660mg max/ day - Increase Tegretol 600mg BID - monitor serum Na+ - monitor Carbamazepine level ( tegretol level) This tele-neurology consultation was performed via two-way videoconferencing. I have discussed the case with ED physician, RN and patient/family. They understand and agree with this plan. ALL ABOVE IF NO CONTRAINDICATIONS: After the above preliminary workup is completed, further decisions regarding diagnosis and/or management can be made by primary team and/or in-house neurologist. Please re-consult our Teleneurology service, if in-house neurology not available, with additional questions, concerns, or changes in this patients neurologic status I have obtained verbal consent from patient/surrogate for two-way audio/visual encounter * Clear Portions of the evaluation were not assessed due to the following Other THROMBOLYSIS INCLUSION/EXCLUSION CRITERIA Inclusion Criteria Must answer YES to ALL in order to proceed with thrombolysis. Clear All Symptoms suggestive of ischemic stroke that are deemed disabling Able to initiate treatment within 4.5 hours of time last known well? Age 18 years or older Exclusion Criteria Physicians with expertise in cerebrovascular disease may deem thrombolysis to be reasonable in the presence of one or more exclusion criteria after careful consideration of potential risk versus benefit to the patient. Default all to No Default all to Yes Clear All Acute intracranial hemorrhage (ICH) History of ICH other than history of cerebral microbleeds Unable to maintain BP <185/110 despite aggressive antihypertensive treatment Acute internal bleeding Severe head trauma within last 3 months Arterial puncture at non-compressible site within 7 days Infective endocarditis Gastrointestinal bleeding within last 21 days or structural GI malignancy Intracranial or spinal surgery within last 3 months Thrombocytopenia: platelet count <100 000/mm3 INR > 1.7, PT > 15 or PTT > 40 Low-Molecular Weight Heparin within preceding 24 hours Direct Thrombin Inhibitors or Factor Xa Inhibitors within preceding 48 hours Relative Exclusion Criteria Physicians with expertise in cerebrovascular disease may deem thrombolysis to be reasonable in the presence of one or more exclusion criteria after careful consideration of potential risk versus benefit to the patient. Clear All Ischemic stroke within last 3 months Major trauma (excluding head trauma) within past 14 days Severe Hypoglycemia (below 50 mg/dL) or Hyperglycemia (above 400 mg/dL) Wake-Up Stroke Inclusion Criteria Patient with suspected ischemic stroke who wake up with stroke symptoms or have unclear time of onset, and present within 4.5 hours of stroke symptom recognition may be considered for thrombolytic treatment based upon MR imaging and the following criteria Clear THROMBOLYSIS RECOMMENDATION Thrombolysis Recommended ? Clear Please select a reason why Thrombolysis was not recommended * Other Billing/Diagnosis Charge Capture DIAGNOSIS CODE DIAGNOSIS G50.0 Trigeminal neuralgia(Primary) G50.1 Atypical facial pain Z86.69 Personal history of other diseases of the nervous system and sense organs BILLING CHARGE CODE CHARGE DESCRIPTION DIAGNOSES DATE OF SERVICE G0427 G0427 - Emergent Level 3 -ComplexInitial Consult - Comprehensive Hx, Comprehensive Exam, High Complexity MDM G50.0, G50.1, Z86.69 Dec 08, 2024, 01:35 pm Attestation Interaction Mode * Video * First Video Attempt System Logged: 12/08/2024 13:15 12/08/2024 13:15 mm/dd/yyyy hh:mm (24 Hr) Phone * First Phone Attempt System Logged: 12/08/2024 13:32 12/08/2024 13:15 mm/dd/yyyy hh:mm (24 Hr) Your Current Location Enter Current Zip Code * [id number] Last saved 21s ago. Auto Launch Available Clinical Contact All Video Carts [facility] CART ER (Access Cart 4.0) Available [facility] ACU (Access Cart 4.1)selected Available Phone Only Rapid Room Contact Numbers Provided at intake DR. BENITEZ [phone] Callback Number [phone] Number not listed? Enter valid 10-digit number E.g. [phone] All other numbers Readiness Form Template Change forms: Consult Note General Review Of Systems Medical History Allergies & Medications Social & Family History Vital Signs Exam NIH Stroke Scale Labs & Imaging Assessment Diagnosis Recommendations Thrombolysis I/E Criteria Thrombolysis Recommendation Billing/Diagnosis Attestation Telemed IQ 11.5.2 [facility] 2024 Providers: Attending Provider: HE BENITEZ MD ED Provider: MAYI HUNTER MD Consulting Provider: JOSE HUANG DO cc:: The requesting physician will be sent a copy of the consult. - History of Present Illness HPI: The patient is a 79F Review of Systems - Review of Systems Review of Systems (Narrative): Pertinent positive and negative findings as per HPI. All other systems negative. - Past Medical History Past Medical History: Yes Neurological History: Other ENT History: No Pertinent History Cardiac History: Deep Vein Thrombosis, Hypertension Respiratory History: Other (PE) Endocrine Medical History: Diabetes Type II, Other Musculoskelatal History: Other GI Medical History: GERD, Gallbladder Disease History: No Pertinent History Pyscho-Social History: No Pertinent History Reproductive Disorders: Fibroids Comment: L Rotator Cuff Repair, Trigeminal Neuralgia, Pre-Diabetic, COVID-19 x1, Sanchez's Palsy, Tonsillectomy (1962), Hysterectomy (01/1974), Ovary Removal (01/1975), L TKA (11/17/94), R TKA (01/26/95), Colonoscopy (07/13/2006, 07/22/2009, 08/05/2014), Cholecystectomy (12/03/2008), L Rotator Cuff Repair (08/17/2010), R BASILIO (12/25/13) - Past Surgical History Past Surgical History: Yes Neuro Surgical History: No Pertinent History Cardiac History: No Pertinent History Respiratory Surgery: No Pertinent History GI Surgical History: Cholecystectomy Genitourinary Surgical Hx: No Pertinent History Musculskeletal Surgical Hx: Joint Replacement, Orthopedic Surgery Female Surgical History: Hysterectomy, Other Other Surgical History: KNEE REPLACEMENTS bilateral, right hip replacement, ovary removed, 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 Significant Family History: heart disease, cancer, diabetes, stroke - Social History Smoking Status: Former smoker How long have you smoked: 2-3 yrs Exposure to second hand smoke: Yes Alcohol: None Drug Use: none - Social Determinants of Health Will the patient participate in the screening: Yes Do you worry about a steady place to live?: No Do you have any problems with any of the following?: No known problems In the past 12 months,have you had to go without utilities?: No Have you or anyone in your house had to go without enough: No Transportation Issues: No Has anyone in your support network made you feel unsafe?: No Does the patient want assistance with any of the above?: No Physical Exam - Vital Signs Vital Signs: Vital Signs - 24 hr 12/07/24 12/07/24 12/07/24 15:01 19:37 23:30 Temperature 97.7 F 97.1 F 96.9 F Pulse Rate 66 71 71 Respiratory 20 17 21 Rate Blood Pressure 137/65 148/69 184/75 [Left Arm] O2 Sat by Pulse 95 94 L 96 Oximetry 12/08/24 12/08/24 07:47 12:00 Temperature 97.9 F 97.4 F Pulse Rate 72 69 Respiratory 20 18 Rate Blood Pressure 144/70 157/72 [Left Arm] O2 Sat by Pulse 95 97 Oximetry Results - Labs Lab/Micro Results: Lab Results-Last 24 Hours 12/07/24 12/07/24 12/07/24 Range/Units 16:01 16:01 16:01 WBC 5.8 (3.98-10.04) x10^3/uL RBC 4.92 (3.93-5.22) x10^6/uL Hgb 14.0 (11.2-15.7) g/dL Hct 42.5 (34.1-44.9) % MCV 86.4 (79.4-94.8) fL MCH 28.5 (25.6-32.2) pg MCHC 32.9 (32.2-35.5) g/dL RDW 14.1 (11.7-14.4) % Plt Count 185 (182-369) x10^3/uL MPV 9.2 L (9.4-12.3) fL Gran % 62.8 (34.0-71.1) % Immature Gran % (Auto) 0.3 (0.001-0.429) % Nucleat RBC Rel Count 0.0 (0.00-0.2) % Eos # (Auto) 0.08 (0.04-0.36) x10^3/uL Immature Gran # (Auto) 0.02 (0.001-0.031) x10^3u/L Absolute Lymphs (auto) 1.62 (1.18-3.74) x10^3/uL Absolute Monos (auto) 0.41 (0.24-0.86) x10^3/uL Absolute Nucleated RBC 0.00 (0.00-0.012) x10^3u/L Lymphocytes % 27.8 (19.3-51.7) % Monocytes % 7.0 (4.7-12.5) % Eosinophils % 1.4 (0.7-5.8) % Basophils % 0.7 (0.1-1.2) % Absolute Granulocytes 3.66 (1.56-6.13) x10^3/uL Basophils # 0.04 (0.01-0.08) x10^3/uL ESR 16 (0-20) mm/hr Sodium 141 (135-145) mmol/L Potassium 4.1 (3.5-5.1) mmol/L Chloride 107 (98-107) mmol/L Carbon Dioxide 23 (22-30) mmol/L Anion Gap 14.7 (5-15) MEQ/L BUN 39 H (7-17) mg/dL Creatinine 1.17 H (0.52-1.04) mg/dL Estimated GFR 46.9 ML/MIN Glucose 91 (74-106) mg/dL POC Glucometer (74 to 106) mg/dL Hemoglobin A1c (4.5-6.0) % Calcium 9.2 (8.4-10.2) mg/dL Total Bilirubin 0.50 (0.2-1.3) mg/dL AST 35 (14-36) U/L ALT 32 (0-35) U/L Alkaline Phosphatase 132 H (38-126) U/L Serum Total Protein 6.8 (6.3-8.2) g/dL Albumin 4.0 (3.5-5.0) g/dL Carbamazepine (4.0-12.0) ug/mL 12/07/24 12/07/24 12/07/24 Range/Units 16:01 16:01 16:48 WBC (3.98-10.04) x10^3/uL RBC (3.93-5.22) x10^6/uL Hgb (11.2-15.7) g/dL Hct (34.1-44.9) % MCV (79.4-94.8) fL MCH (25.6-32.2) pg MCHC (32.2-35.5) g/dL RDW (11.7-14.4) % Plt Count (182-369) x10^3/uL MPV (9.4-12.3) fL Gran % (34.0-71.1) % Immature Gran % (Auto) (0.001-0.429) % Nucleat RBC Rel Count (0.00-0.2) % Eos # (Auto) (0.04-0.36) x10^3/uL Immature Gran # (Auto) (0.001-0.031) x10^3u/L Absolute Lymphs (auto) (1.18-3.74) x10^3/uL Absolute Monos (auto) (0.24-0.86) x10^3/uL Absolute Nucleated RBC (0.00-0.012) x10^3u/L Lymphocytes % (19.3-51.7) % Monocytes % (4.7-12.5) % Eosinophils % (0.7-5.8) % Basophils % (0.1-1.2) % Absolute Granulocytes (1.56-6.13) x10^3/uL Basophils # (0.01-0.08) x10^3/uL ESR (0-20) mm/hr Sodium (135-145) mmol/L Potassium (3.5-5.1) mmol/L Chloride (98-107) mmol/L Carbon Dioxide (22-30) mmol/L Anion Gap (5-15) MEQ/L BUN (7-17) mg/dL Creatinine (0.52-1.04) mg/dL Estimated GFR ML/MIN Glucose (74-106) mg/dL POC Glucometer 77 (74 to 106) mg/dL Hemoglobin A1c 6.19 H (4.5-6.0) % Calcium (8.4-10.2) mg/dL Total Bilirubin (0.2-1.3) mg/dL AST (14-36) U/L ALT (0-35) U/L Alkaline Phosphatase (38-126) U/L Serum Total Protein (6.3-8.2) g/dL Albumin (3.5-5.0) g/dL Carbamazepine 3.5 L (4.0-12.0) ug/mL 12/07/24 12/08/24 12/08/24 Range/Units 22:21 05:30 05:30 WBC 6.3 (3.98-10.04) x10^3/uL RBC 5.01 (3.93-5.22) x10^6/uL Hgb 14.0 (11.2-15.7) g/dL Hct 43.1 (34.1-44.9) % MCV 86.0 (79.4-94.8) fL MCH 27.9 (25.6-32.2) pg MCHC 32.5 (32.2-35.5) g/dL RDW 14.2 (11.7-14.4) % Plt Count 208 (182-369) x10^3/uL MPV 9.5 (9.4-12.3) fL Gran % 81.9 H (34.0-71.1) % Immature Gran % (Auto) 0.3 (0.001-0.429) % Nucleat RBC Rel Count 0.0 (0.00-0.2) % Eos # (Auto) 0 L (0.04-0.36) x10^3/uL Immature Gran # (Auto) 0.02 (0.001-0.031) x10^3u/L Absolute Lymphs (auto) 0.93 L (1.18-3.74) x10^3/uL Absolute Monos (auto) 0.17 L (0.24-0.86) x10^3/uL Absolute Nucleated RBC 0.00 (0.00-0.012) x10^3u/L Lymphocytes % 14.9 L (19.3-51.7) % Monocytes % 2.7 L (4.7-12.5) % Eosinophils % 0.0 L (0.7-5.8) % Basophils % 0.2 (0.1-1.2) % Absolute Granulocytes 5.12 (1.56-6.13) x10^3/uL Basophils # 0.01 (0.01-0.08) x10^3/uL ESR (0-20) mm/hr Sodium 139 (135-145) mmol/L Potassium 4.9 (3.5-5.1) mmol/L Chloride 110 H (98-107) mmol/L Carbon Dioxide 19 L (22-30) mmol/L Anion Gap 14.8 (5-15) MEQ/L BUN 37 H (7-17) mg/dL Creatinine 0.88 (0.52-1.04) mg/dL Estimated GFR 66.0 ML/MIN Glucose 119 H (74-106) mg/dL POC Glucometer 106 (74 to 106) mg/dL Hemoglobin A1c (4.5-6.0) % Calcium 9.0 (8.4-10.2) mg/dL Total Bilirubin 0.50 (0.2-1.3) mg/dL AST 34 (14-36) U/L ALT 33 (0-35) U/L Alkaline Phosphatase 134 H (38-126) U/L Serum Total Protein 6.8 (6.3-8.2) g/dL Albumin 4.0 (3.5-5.0) g/dL Carbamazepine (4.0-12.0) ug/mL 12/08/24 12/08/24 Range/Units 07:09 11:12 WBC (3.98-10.04) x10^3/uL RBC (3.93-5.22) x10^6/uL Hgb (11.2-15.7) g/dL Hct (34.1-44.9) % MCV (79.4-94.8) fL MCH (25.6-32.2) pg MCHC (32.2-35.5) g/dL RDW (11.7-14.4) % Plt Count (182-369) x10^3/uL MPV (9.4-12.3) fL Gran % (34.0-71.1) % Immature Gran % (Auto) (0.001-0.429) % Nucleat RBC Rel Count (0.00-0.2) % Eos # (Auto) (0.04-0.36) x10^3/uL Immature Gran # (Auto) (0.001-0.031) x10^3u/L Absolute Lymphs (auto) (1.18-3.74) x10^3/uL Absolute Monos (auto) (0.24-0.86) x10^3/uL Absolute Nucleated RBC (0.00-0.012) x10^3u/L Lymphocytes % (19.3-51.7) % Monocytes % (4.7-12.5) % Eosinophils % (0.7-5.8) % Basophils % (0.1-1.2) % Absolute Granulocytes (1.56-6.13) x10^3/uL Basophils # (0.01-0.08) x10^3/uL ESR (0-20) mm/hr Sodium (135-145) mmol/L Potassium (3.5-5.1) mmol/L Chloride (98-107) mmol/L Carbon Dioxide (22-30) mmol/L Anion Gap (5-15) MEQ/L BUN (7-17) mg/dL Creatinine (0.52-1.04) mg/dL Estimated GFR ML/MIN Glucose (74-106) mg/dL POC Glucometer 110 H 94 (74 to 106) mg/dL Hemoglobin A1c (4.5-6.0) % Calcium (8.4-10.2) mg/dL Total Bilirubin (0.2-1.3) mg/dL AST (14-36) U/L ALT (0-35) U/L Alkaline Phosphatase (38-126) U/L Serum Total Protein (6.3-8.2) g/dL Albumin (3.5-5.0) g/dL Carbamazepine (4.0-12.0) ug/mL Accuchecks Date 12/08/24 Date 12/08/24 Date 12/07/24 Impressions & Recommendations - ED Arrival Time ED Arrival Date & Time: ED Arrival Date and Time 12/07/24 10:39 Last known well time: - NIHSS IV Thrombolysis Standard of Care: IV thrombolysis as a standard of care in acute stroke discussed with MAYI HUNTER MD. Risk, benefits, and options of IV thrombolytic therapy for acute ischemic stroke were discussed with the patient/family DOMINICK MEJIA. We discussed that use of IV tenecteplase is in line with national stroke guidelines. We discussed that risks of IV thrombolytic use include intracranial hemorrhage, other fatal bleeding risks, and angioedema. Alternatives of treatment, including not proceeding with thrombolytic therapy were discussed. - Recommendations Recommendations: -Neuro checks, NIHSS, vital signs monitoring as per post tenecteplase protocol -Repeat non contrast head CT or noncontrast MRI brain 24 hours after IV thrombolyltic administration. -Obtain STAT non contrast head CT if there are new neurological deficits, worsening of current deficits, or with complaint of severe headache. Notify Neurology JE of changes in neurological exam. -Nicardipine gtt as needed to maintain BP< 180/105 x 24hr post tenecteplase administration. -Monitor for angioedema -SCD's for DVT prophylaxis. Work up: -Basic labs (CBC, BMP, TSH+T4) if not done already. -INR,PTT if not done already -Fasting Lipid Panel and Hgb A1c -Transthroacic echocardiogram [with bubble study] -EKG + Telemetry- monitor for A-FIB Secondary Stroke Prevention -Hold off on antiplatelet therapy x 24 hr post IV thrombolytic therapy Decision to initiate antiplatelet therapy, or anticoagulation if needed, will be based on repeat imaging at 24 hour post thrombolytic administration. -If not medical contraindication, start high intensity statin. Eg. Atrovastatin 80 mg daily Risk Factor Management -HTN control: BP <180/105 for first 24 hr post tenecteplase -If diabetic, optimize glucose control: assisted goal HgA1c <7 -HLD control: Long-term goal LDL <70. High intensity statin recommended. Moderate intensity statin in patients > 75 years. -Smoking Alcohol Use Drug use cessation counseling Stroke Rehabilitation: -Physical therapy, occupational therapy, speech therapy consults -Social work and case management consults for help with discharge needs. Impression and recommendation were discussed with Dr. MAYI HUNTER MD Thank you for allowing us to participate in this patient's care. Please call [facility] with questions, concerns, or change in patient's neurological status. This consult was performed via secure telemedicine audio/visual platform with [ ] RN assisting at bedside. Patient identity verified and consent obtained. TIQ recieved at [ ] Neuro Cart Time: Delays in Patient Encounter: Assessment & Plan - Encounter Encounter: "The entirety of this encounter was performed via Telemedicine using audio and visual "
[2024-12-08] MEDS: SOLU MEDROL IV SCH (15:34)
[2024-12-08] MEDS: SODIUM CHLORIDE MINI IV SCH (15:34)
[2024-12-08] MEDS: Tegretol 200 MG PO ONE (15:35)
[2024-12-08] MEDS: TYLENOL 325 MG PO PRN (20:34)
[2024-12-08] MEDS: Pepcid 20 MG VIAL IV SCH (21:36)
[2024-12-08] MEDS: Tegretol 200 MG PO SCH (21:36)
[2024-12-08] MEDS: REMOVE PATCH REMINDER TOP SCH (22:12)
[2024-12-09 06:19] LABS: BASOPHIL % 0.0 % (0.1-1.2); Basophil (Absolute #) 0 x10^3/uL (0.01-0.08); Eosinophil (Absolute #) 0 x10^3/uL (0.04-0.36); Hematocrit 39.6 % (34.1-44.9); Hemoglobin 13.1 g/dL (11.2-15.7); IMMATURE GRAN # 0.02 x10^3u/L (0.001-0.031); IMMATURE GRAN % 0.7 % (0.001-0.429); Lymphocyte (Absolute #) 0.60 x10^3/uL (1.18-3.74); Mean Corpuscular Hemoglobin 28.7 pg (25.6-32.2); Mean Corpuscular Hgb Concent. 33.1 g/dL (32.2-35.5); Monocyte (Absolute #) 0.14 x10^3/uL (0.24-0.86); NUCLEATED RBC # 0.00 x10^3u/L (0.00-0.012); NUCLEATED RBC % 0.0 % (0.00-0.2); Platelet Count 185 x10^3/uL (182-369); Red Blood Count 4.57 x10^6/uL (3.93-5.22); White Blood Count 2.7 x10^3/uL (3.98-10.04)
[2024-12-09 06:40] LABS: Calcium 8.5 mg/dL (8.4-10.2); Carbon Dioxide 17.0 mmol/L (22-30); Creatinine 1 0.87 mg/dL (0.52-1.04); EST GLOMERULAR FILTRATION RATE 66.9 ML/MIN; Glucose 183.0 mg/dL (74-106); Potassium 4.6 mmol/L (3.5-5.1); SGOT/AST 33.0 U/L (14-36); SGPT/ALT 37.0 U/L (0-35); Total Protein 6.1 g/dL (6.3-8.2)
[2024-12-09] MEDS: Sodium Bicarbonate 50 MEQ/50 ML VIAL*** 150 MEQ in Dextrose 5%/Water IV Soln. 1000 ML 1... IV SCH (08:13)
[2024-12-09] MEDS ORDERED: Pepcid 20 MG VIAL IV SCH (10:00)
[2024-12-09] MEDS: HUMALOG SQ PRN (11:44)
--- NOTE | 2024-12-09 12:24 | PCM.NOTE ---
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 D espite outpatient management with Lyrica and carbamazepine, her symptoms worsened, and prior interventions including Dilaudid, corticosteroid injection, and intranasal lidocaine provided minimal relief. She was admitted for intractable pain and inpatient pain management and neurology evaluation. On admission, she was hypertensive but otherwise vitally stable, and denied fever, chest pain, GI symptoms, or trauma. On 12/08, she reported continued severe pain (8/10) with partial relief from pain medications and Solu-Medrol. Neurology recommended medication adjustments including: Solu-Medrol 15 mg/kg/day for 3 days, followed by a tapering steroid regimen, Tegretol 600 mg BID, and planned transition to Lyrica CR 660 mg, though the latter is unavailable in-house. A prescription will be sent at discharge. Pharmacy was consulted to enter the steroid taper. Plans include outpatient neurosurgery follow-up, and pending MRI brain with contrast and MRA head/neck with contrast. Additional labs ordered include TSH, B12, SPEP with IPEP, ESR, CRP, ABY, ANCA, MOIZ, and beta-2 microglobulin. She was also started on Pepcid 20 mg BID, and Tegretol levels will be monitored. On 12/09, the patient reported no pain and denied any further concerns. Notably, CO2 was 17, and a sodium bicarbonate drip was started. She will remain hospitalized for the 3-day course of IV steroids. MRI and MRA remain pending. Pt reports a family hx of brain tumors as she had a sister and niece pass from one. She has anxiety about the MRI results and states she will not have surgery if needed. - Review of Systems Constitutional: No Fever, No Chills Eyes: No Symptoms Ears, Nose, & Throat: No Symptoms Respiratory: No Cough, No Short Of Breath Cardiac: No Chest Pain, No Edema, No Syncope Abdominal/Gastrointestinal: No Abdominal Pain, No Nausea, No Vomiting, No Diarrhea Genitourinary Symptoms: No Dysuria Musculoskeletal: No Back Pain, No Neck Pain Skin: No Rash Neurological: No Dizziness, No Focal Weakness, No Sensory Changes Psychological: No Symptoms Endocrine: No Symptoms Hematologic/Lymphatic: No Symptoms Immunological/Allergic: No Symptoms Objective Exam General Appearance: no apparent distress, alert, obese Neurologic Exam: alert, oriented x 3, cooperative, normal mood/affect, nml cerebellar function, sensation nml, No motor deficits Skin Exam: normal color, warm, dry Eye Exam: PERRL, EOMI, eyes nml inspection Ears, Nose, Throat Exam: normal ENT inspection, pharynx normal, moist mucous membranes Neck Exam: normal inspection, non-tender, supple, full range of motion Respiratory Exam: normal breath sounds, lungs clear, No respiratory distress Cardiovascular Exam: regular rate/rhythm, normal heart sounds Gastrointestinal/Abdomen Exam: soft, No tenderness, No mass Extremity Exam: normal inspection, normal range of motion Back Exam: normal inspection, normal range of motion, No CVA tenderness, No vertebral tenderness Pelvic Exam: deferred Rectal Exam: deferred Objective Data Vital Signs: Vital Signs - 24 hr Temp Pulse Resp BP Pulse Ox 12/09/24 11:43 97.9 F 61 12 133/72 99 12/09/24 07:37 97.9 F 63 12 135/60 95 12/09/24 04:00 96.9 F 61 20 153/70 94 L 12/09/24 00:00 97.1 F 92 H 17 136/61 94 L 12/08/24 20:00 97.5 F 83 19 188/81 94 L 12/08/24 16:00 97.9 F 71 20 142/67 99 Pain Assessment - Last Documented Pain Intensity 4 Pain Scale Used 0-10 Pain Scale Intake and Output: Intake & Output 12/07/24 12/08/24 12/09/24 12/10/24 11:59 11:59 11:59 11:59 Intake Total 1076 3372 Balance 1076 3372 Weight 73.2 kg 73.4 kg Lab Results: Lab Results-Last 24 Hours 12/08/24 12/08/24 12/08/24 Range/Units 05:30 16:17 21:52 WBC (3.98-10.04) x10^3/uL RBC (3.93-5.22) x10^6/uL Hgb (11.2-15.7) g/dL Hct (34.1-44.9) % MCV (79.4-94.8) fL MCH (25.6-32.2) pg MCHC (32.2-35.5) g/dL RDW (11.7-14.4) % Plt Count (182-369) x10^3/uL MPV (9.4-12.3) fL Gran % (34.0-71.1) % Immature Gran % (Auto) (0.001-0.429) % Nucleat RBC Rel Count (0.00-0.2) % Eos # (Auto) (0.04-0.36) x10^3/uL Immature Gran # (Auto) (0.001-0.031) x10^3u/L Absolute Lymphs (auto) (1.18-3.74) x10^3/uL Absolute Monos (auto) (0.24-0.86) x10^3/uL Absolute Nucleated RBC (0.00-0.012) x10^3u/L Lymphocytes % (19.3-51.7) % Monocytes % (4.7-12.5) % Eosinophils % (0.7-5.8) % Basophils % (0.1-1.2) % Absolute Granulocytes (1.56-6.13) x10^3/uL Basophils # (0.01-0.08) x10^3/uL Sodium (135-145) mmol/L Potassium (3.5-5.1) mmol/L Chloride (98-107) mmol/L Carbon Dioxide (22-30) mmol/L Anion Gap (5-15) MEQ/L BUN (7-17) mg/dL Creatinine (0.52-1.04) mg/dL Estimated GFR ML/MIN Glucose (74-106) mg/dL POC Glucometer 128 H 159 H (74 to 106) mg/dL Calcium (8.4-10.2) mg/dL Magnesium (1.6-2.3) mg/dL Total Bilirubin (0.2-1.3) mg/dL AST (14-36) U/L ALT (0-35) U/L Alkaline Phosphatase (38-126) U/L Serum Total Protein (6.3-8.2) g/dL Albumin (3.5-5.0) g/dL Vitamin B12 323 (239-931) pg/mL TSH 3rd Generation 0.522 (0.470-4.680) mIU/L 12/09/24 12/09/24 12/09/24 Range/Units 06:10 06:10 06:10 WBC 2.7 L (3.98-10.04) x10^3/uL RBC 4.57 (3.93-5.22) x10^6/uL Hgb 13.1 (11.2-15.7) g/dL Hct 39.6 (34.1-44.9) % MCV 86.7 (79.4-94.8) fL MCH 28.7 (25.6-32.2) pg MCHC 33.1 (32.2-35.5) g/dL RDW 14.3 (11.7-14.4) % Plt Count 185 (182-369) x10^3/uL MPV 9.4 (9.4-12.3) fL Gran % 71.7 H (34.0-71.1) % Immature Gran % (Auto) 0.7 H (0.001-0.429) % Nucleat RBC Rel Count 0.0 (0.00-0.2) % Eos # (Auto) 0 L (0.04-0.36) x10^3/uL Immature Gran # (Auto) 0.02 (0.001-0.031) x10^3u/L Absolute Lymphs (auto) 0.60 L (1.18-3.74) x10^3/uL Absolute Monos (auto) 0.14 L (0.24-0.86) x10^3/uL Absolute Nucleated RBC 0.00 (0.00-0.012) x10^3u/L Lymphocytes % 22.4 (19.3-51.7) % Monocytes % 5.2 (4.7-12.5) % Eosinophils % 0.0 L (0.7-5.8) % Basophils % 0.0 L (0.1-1.2) % Absolute Granulocytes 1.92 (1.56-6.13) x10^3/uL Basophils # 0 L (0.01-0.08) x10^3/uL Sodium 138 (135-145) mmol/L Potassium 4.6 (3.5-5.1) mmol/L Chloride 112 H (98-107) mmol/L Carbon Dioxide 17 L (22-30) mmol/L Anion Gap 13.3 (5-15) MEQ/L BUN 39 H (7-17) mg/dL Creatinine 0.87 (0.52-1.04) mg/dL Estimated GFR 66.9 ML/MIN Glucose 183 H (74-106) mg/dL POC Glucometer (74 to 106) mg/dL Calcium 8.5 (8.4-10.2) mg/dL Magnesium 2.0 (1.6-2.3) mg/dL Total Bilirubin 0.30 (0.2-1.3) mg/dL AST 33 (14-36) U/L ALT 37 H (0-35) U/L Alkaline Phosphatase 118 (38-126) U/L Serum Total Protein 6.1 L (6.3-8.2) g/dL Albumin 3.5 (3.5-5.0) g/dL Vitamin B12 (239-931) pg/mL TSH 3rd Generation (0.470-4.680) mIU/L 12/09/24 12/09/24 Range/Units 07:21 11:33 WBC (3.98-10.04) x10^3/uL RBC (3.93-5.22) x10^6/uL Hgb (11.2-15.7) g/dL Hct (34.1-44.9) % MCV (79.4-94.8) fL MCH (25.6-32.2) pg MCHC (32.2-35.5) g/dL RDW (11.7-14.4) % Plt Count (182-369) x10^3/uL MPV (9.4-12.3) fL Gran % (34.0-71.1) % Immature Gran % (Auto) (0.001-0.429) % Nucleat RBC Rel Count (0.00-0.2) % Eos # (Auto) (0.04-0.36) x10^3/uL Immature Gran # (Auto) (0.001-0.031) x10^3u/L Absolute Lymphs (auto) (1.18-3.74) x10^3/uL Absolute Monos (auto) (0.24-0.86) x10^3/uL Absolute Nucleated RBC (0.00-0.012) x10^3u/L Lymphocytes % (19.3-51.7) % Monocytes % (4.7-12.5) % Eosinophils % (0.7-5.8) % Basophils % (0.1-1.2) % Absolute Granulocytes (1.56-6.13) x10^3/uL Basophils # (0.01-0.08) x10^3/uL Sodium (135-145) mmol/L Potassium (3.5-5.1) mmol/L Chloride (98-107) mmol/L Carbon Dioxide (22-30) mmol/L Anion Gap (5-15) MEQ/L BUN (7-17) mg/dL Creatinine (0.52-1.04) mg/dL Estimated GFR ML/MIN Glucose (74-106) mg/dL POC Glucometer 154 H 220 H (74 to 106) mg/dL Calcium (8.4-10.2) mg/dL Magnesium (1.6-2.3) mg/dL Total Bilirubin (0.2-1.3) mg/dL AST (14-36) U/L ALT (0-35) U/L Alkaline Phosphatase (38-126) U/L Serum Total Protein (6.3-8.2) g/dL Albumin (3.5-5.0) g/dL Vitamin B12 (239-931) pg/mL TSH 3rd Generation (0.470-4.680) mIU/L Radiology Exams: Radiology Procedures Category Date Time Status MRA BRAIN WITHOUT CONTRAST [MRI] Routine Exams 12/09/24 13:00 Ordered MRA NECK WITH CONTRAST [MRI] Routine Exams 12/09/24 13:00 Ordered MRI BRAIN WITH CONTRAST [MRI] Routine Exams 12/09/24 13:00 Ordered Medications: Medications Generic Name Dose Route Start Last Admin Trade Name Freq PRN Reason Stop Dose Admin Acetaminophen 650 mg 12/07/24 15:30 12/08/24 20:34 Acetaminophen 325 Mg Tablet PO 01/06/25 15:29 650 mg Q4H PRN PRN Administration PAIN, FEVER, HEADACHE Carbamazepine 600 mg 12/08/24 22:00 12/09/24 10:04 Carbamazepine 200 Mg Tablet PO 01/06/25 21:59 600 mg BID JOHNATHAN Administration Methylprednisolone Sodium 0 mg 12/11/24 10:00 Succinate 80 mg/ Sterile Water IV 12/13/24 10:01 2 ml DAILY JOHNATHAN Famotidine 20 mg 12/08/24 22:00 12/09/24 10:03 Famotidine 20 Mg/1 Vial IV 01/07/25 21:59 20 mg BID JOHNATHAN Administration Hydromorphone HCl 0.5 mg 12/07/24 15:44 12/08/24 15:40 Hydromorphone 1 Mg/1ml Inj IV 12/12/24 15:42 0.5 mg Q2H PRN PRN Administration PAIN Methylprednisolone Sodium 100 mls @ 50 mls/hr 12/08/24 16:00 12/08/24 15:34 Succinate 1,000 mg/ Sodium IV 01/07/25 15:59 50 mls/hr Chloride Q24H JOHNATHAN Administration Sodium Bicarbonate 150 meq/ 1,150 mls @ 100 mls/hr 12/09/24 08:30 12/09/24 08:13 Dextrose IV 01/08/25 08:29 100 mls/hr .[id number] JOHNATHAN 100 mls/hr Administration Insulin Human Lispro 0 unit 12/07/24 15:30 12/09/24 11:44 Insulin Lispro 1 Unit SQ 01/06/25 15:29 2 unit UD PRN Administration HYPERGLYCEMIA Lidocaine 1 patch 12/08/24 10:00 12/09/24 10:03 Lidocaine Hcl 1 Patch Patch TOP 01/07/25 09:59 1 patch DAILY JOHNATHAN Administration Lisinopril 20 mg 12/08/24 10:00 12/09/24 10:03 Lisinopril 20 Mg Tablet PO 01/07/25 09:59 20 mg DAILY JOHNATHAN Administration Metoprolol Succinate 25 mg 12/08/24 10:00 12/09/24 10:03 Metoprolol Succinate 25 Mg Xl Tab PO 01/07/25 09:59 25 mg DAILY JOHNATHAN Administration Naloxone HCl 0.4 mg 12/07/24 15:44 Naloxone Hcl 0.4 Mg/Ml Ml IV 01/06/25 15:43 PRN PRN OVERDOSE Non-Formulary Medication 1 each 12/08/24 22:00 12/08/24 22:12 Remove Patch 1 Each TOP 01/07/25 21:59 1 each HS JOHNATHAN Administration Ondansetron HCl 4 mg 12/07/24 15:30 Ondansetron Hcl 4 Mg/2 Ml Vial IV 01/06/25 15:29 Q6H PRN PRN NAUSEA/VOMITING Pantoprazole Sodium 40 mg 12/08/24 10:00 12/09/24 10:03 Pantoprazole 40 Mg Vial IV 01/06/25 16:29 40 mg DAILY JOHNATHAN Administration Potassium Chloride 20 meq 12/08/24 10:00 12/09/24 10:02 Potassium Chloride Tab 10 Meq Tab PO 01/07/25 09:59 20 meq DAILY JOHNATHAN Administration Prednisone 50 mg 12/14/24 10:00 Prednisone 20 Mg Tablet PO 12/15/24 10:01 BID JOHNATHAN Pregabalin 200 mg 12/08/24 10:00 12/09/24 10:24 Pregabalin 100 Mg Capsule PO 01/07/25 09:59 200 mg TID JOHNATHAN Administration Rivaroxaban 20 mg 12/08/24 22:00 12/08/24 21:36 Rivaroxaban 10 Mg Tablet PO 01/07/25 21:59 20 mg QHS JOHNATHAN Administration Discontinued Medications Generic Name Dose Route Start Last Admin Trade Name Freq PRN Reason Stop Dose Admin Hydrocodone Bitart/Acetaminophen 2 tab 12/07/24 11:23 12/07/24 11:36 Hydrocodone/Apap 5/325 1 Tab Tablet PO 12/07/24 11:24 2 tab STAT ONE Administration Hydrocodone Bitart/Acetaminophen Confirm 12/07/24 11:36 Hydrocodone/Apap 5/325 1 Tab Tablet Administered 12/07/24 11:37 Dose 2 tab .ROUTE .STK-MED ONE Hydrocodone Bitart/Acetaminophen 1 tablet 12/07/24 15:30 Hydrocodone/Acetamin 10-325 Mg Tablet PO 12/12/24 15:29 Q4H PRN PRN PAIN Carbamazepine 200 mg 12/07/24 22:00 12/08/24 11:03 Carbamazepine 200 Mg Tablet PO 01/06/25 21:59 200 mg BID JOHNATHAN Administration Carbamazepine 400 mg 12/08/24 15:30 12/08/24 15:35 Carbamazepine 200 Mg Tablet PO 12/08/24 15:31 400 mg ONCE ONE Administration Methylprednisolone Sodium 0 mg 12/07/24 15:30 12/08/24 11:02 Succinate 40 mg/ Sterile Water IV 01/06/25 15:29 40 mg 1 ml Q12HT JOHNATHAN Administration Famotidine 20 mg 12/09/24 10:00 Famotidine 20 Mg/1 Vial IV 01/08/25 09:59 DAILY JOHNATHAN Hydromorphone HCl 1 mg 12/07/24 13:01 12/07/24 13:18 Hydromorphone 1 Mg/1ml Inj IV 12/07/24 13:02 1 mg STAT ONE Administration Hydromorphone HCl Confirm 12/07/24 13:18 Hydromorphone 1 Mg/1ml Inj Administered 12/07/24 13:19 Dose 1 mg .ROUTE .STK-MED ONE Hydromorphone HCl 1 mg 12/07/24 15:30 Hydromorphone 1 Mg/1ml Inj IV 12/12/24 15:29 Q4H PRN PRN PAIN Hydromorphone HCl Confirm 12/08/24 05:13 Hydromorphone 1 Mg/1ml Inj Administered 12/08/24 05:14 Dose 1 mg .ROUTE .STK-MED ONE Sodium Chloride 1,000 mls @ 75 mls/hr 12/07/24 16:30 12/08/24 07:35 Sodium Chloride 0.9% 1000 Ml IV 01/06/25 16:29 75 mls/hr .[id number] JOHNATHAN Administration Sodium Chloride Confirm 12/08/24 07:31 Sodium Chloride 0.9% 1000 Ml Administered 12/08/24 07:32 Dose 1,000 mls @ ud .ROUTE .STK-MED ONE Sodium Chloride 1,000 mls @ 100 mls/hr 12/08/24 10:22 12/09/24 08:01 Sodium Chloride 0.9% 1000 Ml IV 01/06/25 16:29 Not Given .Q10H JOHNATHAN Lidocaine Confirm 12/07/24 15:58 Lidocaine Hcl 1 Patch Patch Administered 12/07/24 15:59 Dose 1 patch .ROUTE .STK-MED ONE Methylprednisolone Sodium Succinate Confirm 12/07/24 15:58 Methylprednisolone Sod Suc 40m 40 Mg/Ml Vial Administered 12/07/24 15:59 Dose 40 mg .ROUTE .STK-MED ONE Methylprednisolone Sodium Succinate Confirm 12/07/24 22:20 Methylprednisolone Sod Suc 40m 40 Mg/Ml Vial Administered 12/07/24 22:21 Dose 40 mg .ROUTE .STK-MED ONE Non-Formulary Medication 40 mg 12/08/24 10:00 Esomeprazole Magnesium [Nexium] PO 01/07/25 09:59 DAILY JOHNATHAN Pantoprazole Sodium 40 mg 12/07/24 16:30 12/07/24 18:11 Pantoprazole 40 Mg Vial IV 01/06/25 16:29 40 mg Q24H JOHNATHAN Administration Pregabalin 200 mg 12/07/24 22:00 12/07/24 22:26 Pregabalin 150 Mg Capsule PO 01/06/25 21:59 200 mg TID JOHNATHAN Administration Pregabalin Confirm 12/07/24 22:19 Pregabalin 50 Mg Capsule Administered 12/07/24 22:20 Dose 50 mg .ROUTE .STK-MED ONE Rivaroxaban 20 mg 12/08/24 10:00 12/08/24 11:09 Rivaroxaban 10 Mg Tablet PO 01/07/25 09:59 Not Given DAILY JOHNATHAN Sterile Water Confirm 12/07/24 15:58 Water For Injection,Sterile 10 Ml Vial Administered 12/07/24 15:59 Dose 10 ml IJ .STK-MED ONE Sterile Water Confirm 12/07/24 22:20 Water For Injection,Sterile 10 Ml Vial Administered 12/07/24 22:21 Dose 10 ml IJ .STK-MED ONE Assessment/Plan (1) Trigeminal neuralgia Current Visit: Yes Status: Acute Assessment & Plan: - Neurology note reviewed and agree with plan of care. - Meds changed per neuro recs - Pain resolved today - Continue IV steroids x3 days - narcotic pain med PRN - CBC, CMP reviewed - Pt refused surgery OP if recommended and will f/u with pain mgnt at d/c - MRI and MRA pending Code(s): G50.0 - TRIGEMINAL NEURALGIA (2) Intractable pain Current Visit: Yes Status: Resolved Assessment & Plan: - Pain resolved today - See plan above Code(s): R52 - PAIN, UNSPECIFIED (3) Diabetes mellitus Current Visit: Yes Status: Chronic Qualifiers: Diabetes mellitus type: type 2 Diabetes mellitus detention insulin use: without detention use Diabetes mellitus complication status: without complication Qualified Code(s): E11.9 - Type 2 diabetes mellitus without complications Assessment & Plan: - A1c 6.19- controlled -ADA diet -SSI low dose -adjust as needed with steroids Code(s): E11.9 - TYPE 2 DIABETES MELLITUS WITHOUT COMPLICATIONS (4) HTN (hypertension) Current Visit: Yes Status: Chronic Qualifiers: Hypertension type: primary hypertension Qualified Code(s): I10 - Essential (primary) hypertension Assessment & Plan: - BP controlled - Continue home med Code(s): I10 - ESSENTIAL (PRIMARY) HYPERTENSION (5) History of DVT (deep vein thrombosis) Current Visit: Yes Status: Acute Assessment & Plan: -Continue home xarelto -Also h/o of PE Code(s): Z86.718 - PERSONAL HISTORY OF OTHER VENOUS THROMBOSIS AND EMBOLISM (6) Obesity (BMI 30.0-34.9) Current Visit: Yes Status: Chronic Assessment & Plan: - Advised ADA diet and exercise control VTE: Xarelto PPI: protonix Code status: SCO Next of KIN: Spouse- Toni Ying [phone] D/C plan: 2 days Evaluation and management time of care: > 35 minutes Code(s): E66.811 - OBESITY, CLASS 1
--- NOTE | 2024-12-09 16:44 | XRAY ---
Indication: Trigeminal neuralgia. Conventional multi-slab 3-D [id number] MRA [place] was performed. Comparison: None Distal internal carotid arteries are bilaterally symmetric without critical stenosis or obstruction. Normal carotid terminus with normal branching left/right M1 and right A1 arteries. Left A1 segment occluded with remaining left anterior cerebral artery supplied via anterior communicating artery. Normal MRA appearance to the left and right posterior communicating arteries. Posterior circulation demonstrates normal MRA appearance to basilar, right posterior cerebral, and left/right superior cerebellar arteries. Origin left posterior cerebral artery appears markedly attenuated with remaining posterior cerebral artery supplied via posterior communicating artery. Impression: Occluded left A1 segment with remaining left BARBI supplied via anterior communicating artery. 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 Remaining MRA [place] is negative.
--- NOTE | 2024-12-09 17:02 | XRAY ---
Indication: Trigeminal neuralgia. Sagittal, coronal, and axial MRI brain performed pre-and post T1, T2, FLAIR, diffusion, and ADC sequences. 15 cc Dotarem contrast used. Comparison: None Several images limiting degraded by motion. Age-appropriate global atrophy and mild periventricular degenerative micro-ischemia bilaterally. Brainstem demonstrates lesser minimal degenerative micro-ischemia signal. No acute intracranial hemorrhage, abnormal extra-axial fluid collection, or mass effect. Diffusion images negative for restricted signal. Following gadolinium, there is no abnormal intra or extra-axial enhancement. Fourth ventricle is midline without hydrocephalus. 7/8 cranial nerve complex bilaterally symmetric. Normal flow void signal within the major intracerebral circulation. Normal appearing craniocervical junction and sella turcica. Paranasal sinuses are clear. Impression: 1. Motion artifact. 2. Atrophy and degenerative micro-ischemia within normal limits. 3. Remaining MRI brain with contrast exam is grossly negative.
--- NOTE | 2024-12-09 17:04 | XRAY ---
Indication: Trigeminal neuralgia. Multiple 3-D [id number] MRA neck performed. Comparison: None Study is slightly degraded by motion. Visualized common carotid arteries are bilaterally symmetric without critical stenosis or obstruction. Carotid bulb demonstrates minimal eccentric arteriosclerotic disease. Remaining processed internal carotid arteries are bilaterally symmetric without critical stenosis or obstruction. Impression: 1. Motion artifact. 2. Minimal arteriosclerotic carotid bulb bilaterally. 3. Remaining MRA neck is grossly negative.
--- NOTE | 2024-12-09 17:51 | PCM.CONS ---
History of Present Illness - Neuro Consultation ED Arrival Date & Time: 12/07/24 10:39 Providers: Attending Provider: HE HOLLOWAY MD ED Provider: MAYI HUNTER MD Consulting Provider: ANALI SANCHEZ MD cc:: The requesting physician will be sent a copy of the consult. - Chief Complaint Patient Subjective Stated Complaint: right facial pain x 4 days - History of Present Illness HPI: The patient is a 79F presented with right facial pain of 4 days duration. RN at bedside. Neurology was reconsulted for left A1 occlusion. patient has no complaint. She states she takes xarelto for PE and DVT.Headache and facial pain has resolved. Patient reports she is back to baseline. Review of Systems - Review of Systems Review of Systems (Narrative): Pertinent positive and negative findings as per HPI. All other systems negative. Constitutional: Denies fevers, chills, weight loss ENT: Denies tinnitus Ophthalmology: Denies diplopia, blurred vision, vision loss Respiratory: Denies SOB, cough Cardiovascular: Denies chest pains, palpitations GI: Denies nausea, vomiting : Denies hematuria Hematology: Denies excessive bleeding Musculoskeletal: Denies back pain, neck pain, joint pain Neurology: Denies headache, altered mentation Mental Health: Denies anxiety Dermatology: Denies rash - Past Medical History Past Medical History: Yes Neurological History: Other ENT History: No Pertinent History Cardiac History: Deep Vein Thrombosis, Hypertension Respiratory History: Other (PE) Endocrine Medical History: Diabetes Type II, Other Musculoskelatal History: Other GI Medical History: GERD, Gallbladder Disease History: No Pertinent History Pyscho-Social History: No Pertinent History Reproductive Disorders: Fibroids Comment: L Rotator Cuff Repair, Trigeminal Neuralgia, Pre-Diabetic, COVID-19 x1, Sanchez's Palsy, Tonsillectomy (1962), Hysterectomy (01/1974), Ovary Removal (01/1975), L TKA (11/17/94), R TKA (01/26/95), Colonoscopy (07/13/2006, 07/22/2009, 08/05/2014), Cholecystectomy (12/03/2008), L Rotator Cuff Repair (08/17/2010), R BASILIO (12/25/13) - Past Surgical History Past Surgical History: Yes Neuro Surgical History: No Pertinent History Cardiac History: No Pertinent History Respiratory Surgery: No Pertinent History GI Surgical History: Cholecystectomy Genitourinary Surgical Hx: No Pertinent History Musculskeletal Surgical Hx: Joint Replacement, Orthopedic Surgery Female Surgical History: Hysterectomy, Other Other Surgical History: KNEE REPLACEMENTS bilateral, right hip replacement, ovary removed, 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 Significant Family History: heart disease, cancer, diabetes, stroke - Social History Smoking Status: Former smoker How long have you smoked: 2-3 yrs Exposure to second hand smoke: Yes Alcohol: None Drug Use: none - Social Determinants of Health Will the patient participate in the screening: Yes Do you worry about a steady place to live?: No Do you have any problems with any of the following?: No known problems In the past 12 months,have you had to go without utilities?: No Have you or anyone in your house had to go without enough: No Transportation Issues: No Has anyone in your support network made you feel unsafe?: No Does the patient want assistance with any of the above?: No Physical Exam - Vital Signs Vital Signs: Vital Signs - 24 hr 12/08/24 12/09/24 12/09/24 20:00 00:00 04:00 Temperature 97.5 F 97.1 F 96.9 F Pulse Rate 83 92 H 61 Respiratory 19 17 20 Rate Blood Pressure 188/81 136/61 153/70 [Left Arm] O2 Sat by Pulse 94 L 94 L 94 L Oximetry 12/09/24 12/09/24 12/09/24 07:37 11:43 16:00 Temperature 97.9 F 97.9 F 97.8 F Pulse Rate 63 61 70 Respiratory 12 12 16 Rate Blood Pressure 135/60 133/72 133/63 [Left Arm] O2 Sat by Pulse 95 99 98 Oximetry - Physical Exam General: no acute distress, well developed, alert Mental Status: alert, awake and oriented, fund of knowledge, memory at baseline, fluent speech, no dysarthria, cooperative Cranial nerves: Pupils are round and reactive,no anisocoria, unable to visualize fundi through telemedicine, sensation intact, face is symmetric, tongue midline, Visual saez are full to finger counting, no extinction to double Motor: antigravity in all 4 ext, no drift noted, normal bulk, no motor deficit Sens:: intact to touch in all 4 Movement:: no tremors noted Abnormal Movements: none Gait: deferred - NIHSS Level of Consciousness: Alert Level of Questions: Answers both correctly LOC Commands: Obeys both correctly Best Gaze: Normal Visual: No visual loss Facial Palsy: Normal Motor Arm-Left: No Drift Motor Arm-Right: No Drift Motor Leg-Left: No Drift Motor Leg Right: No Drift Limb Ataxia: Absent Sensory: Partial Loss Best Language: No apashia Dysarthria: Normal aticulation Extinction and Inattention: No Neglect Stroke Risk Level: 1 (right face hyperesthesia is chronic. No new deficit) Results - Labs Lab/Micro Results: Lab Results-Last 24 Hours 12/07/24 12/08/24 12/09/24 Range/Units 05:30 21:52 06:10 WBC 2.7 L (3.98-10.04) x10^3/uL RBC 4.57 (3.93-5.22) x10^6/uL Hgb 13.1 (11.2-15.7) g/dL Hct 39.6 (34.1-44.9) % MCV 86.7 (79.4-94.8) fL MCH 28.7 (25.6-32.2) pg MCHC 33.1 (32.2-35.5) g/dL RDW 14.3 (11.7-14.4) % Plt Count 185 (182-369) x10^3/uL MPV 9.4 (9.4-12.3) fL Gran % 71.7 H (34.0-71.1) % Immature Gran % (Auto) 0.7 H (0.001-0.429) % Nucleat RBC Rel Count 0.0 (0.00-0.2) % Eos # (Auto) 0 L (0.04-0.36) x10^3/uL Immature Gran # (Auto) 0.02 (0.001-0.031) x10^3u/L Absolute Lymphs (auto) 0.60 L (1.18-3.74) x10^3/uL Absolute Monos (auto) 0.14 L (0.24-0.86) x10^3/uL Absolute Nucleated RBC 0.00 (0.00-0.012) x10^3u/L Lymphocytes % 22.4 (19.3-51.7) % Monocytes % 5.2 (4.7-12.5) % Eosinophils % 0.0 L (0.7-5.8) % Basophils % 0.0 L (0.1-1.2) % Absolute Granulocytes 1.92 (1.56-6.13) x10^3/uL Basophils # 0 L (0.01-0.08) x10^3/uL Sodium (135-145) mmol/L Potassium (3.5-5.1) mmol/L Chloride (98-107) mmol/L Carbon Dioxide (22-30) mmol/L Anion Gap (5-15) MEQ/L BUN (7-17) mg/dL Creatinine (0.52-1.04) mg/dL Estimated GFR ML/MIN Glucose (74-106) mg/dL POC Glucometer 159 H (74 to 106) mg/dL Calcium (8.4-10.2) mg/dL Magnesium (1.6-2.3) mg/dL Total Bilirubin (0.2-1.3) mg/dL AST (14-36) U/L ALT (0-35) U/L Alkaline Phosphatase (38-126) U/L C-Reactive Prot, Quant 8 (0-10) mg/L Serum Total Protein (6.3-8.2) g/dL Albumin (3.5-5.0) g/dL 12/09/24 12/09/24 12/09/24 Range/Units 06:10 06:10 07:21 WBC (3.98-10.04) x10^3/uL RBC (3.93-5.22) x10^6/uL Hgb (11.2-15.7) g/dL Hct (34.1-44.9) % MCV (79.4-94.8) fL MCH (25.6-32.2) pg MCHC (32.2-35.5) g/dL RDW (11.7-14.4) % Plt Count (182-369) x10^3/uL MPV (9.4-12.3) fL Gran % (34.0-71.1) % Immature Gran % (Auto) (0.001-0.429) % Nucleat RBC Rel Count (0.00-0.2) % Eos # (Auto) (0.04-0.36) x10^3/uL Immature Gran # (Auto) (0.001-0.031) x10^3u/L Absolute Lymphs (auto) (1.18-3.74) x10^3/uL Absolute Monos (auto) (0.24-0.86) x10^3/uL Absolute Nucleated RBC (0.00-0.012) x10^3u/L Lymphocytes % (19.3-51.7) % Monocytes % (4.7-12.5) % Eosinophils % (0.7-5.8) % Basophils % (0.1-1.2) % Absolute Granulocytes (1.56-6.13) x10^3/uL Basophils # (0.01-0.08) x10^3/uL Sodium 138 (135-145) mmol/L Potassium 4.6 (3.5-5.1) mmol/L Chloride 112 H (98-107) mmol/L Carbon Dioxide 17 L (22-30) mmol/L Anion Gap 13.3 (5-15) MEQ/L BUN 39 H (7-17) mg/dL Creatinine 0.87 (0.52-1.04) mg/dL Estimated GFR 66.9 ML/MIN Glucose 183 H (74-106) mg/dL POC Glucometer 154 H (74 to 106) mg/dL Calcium 8.5 (8.4-10.2) mg/dL Magnesium 2.0 (1.6-2.3) mg/dL Total Bilirubin 0.30 (0.2-1.3) mg/dL AST 33 (14-36) U/L ALT 37 H (0-35) U/L Alkaline Phosphatase 118 (38-126) U/L C-Reactive Prot, Quant (0-10) mg/L Serum Total Protein 6.1 L (6.3-8.2) g/dL Albumin 3.5 (3.5-5.0) g/dL 12/09/24 12/09/24 Range/Units 11:33 16:58 WBC (3.98-10.04) x10^3/uL RBC (3.93-5.22) x10^6/uL Hgb (11.2-15.7) g/dL Hct (34.1-44.9) % MCV (79.4-94.8) fL MCH (25.6-32.2) pg MCHC (32.2-35.5) g/dL RDW (11.7-14.4) % Plt Count (182-369) x10^3/uL MPV (9.4-12.3) fL Gran % (34.0-71.1) % Immature Gran % (Auto) (0.001-0.429) % Nucleat RBC Rel Count (0.00-0.2) % Eos # (Auto) (0.04-0.36) x10^3/uL Immature Gran # (Auto) (0.001-0.031) x10^3u/L Absolute Lymphs (auto) (1.18-3.74) x10^3/uL Absolute Monos (auto) (0.24-0.86) x10^3/uL Absolute Nucleated RBC (0.00-0.012) x10^3u/L Lymphocytes % (19.3-51.7) % Monocytes % (4.7-12.5) % Eosinophils % (0.7-5.8) % Basophils % (0.1-1.2) % Absolute Granulocytes (1.56-6.13) x10^3/uL Basophils # (0.01-0.08) x10^3/uL Sodium (135-145) mmol/L Potassium (3.5-5.1) mmol/L Chloride (98-107) mmol/L Carbon Dioxide (22-30) mmol/L Anion Gap (5-15) MEQ/L BUN (7-17) mg/dL Creatinine (0.52-1.04) mg/dL Estimated GFR ML/MIN Glucose (74-106) mg/dL POC Glucometer 220 H 207 H (74 to 106) mg/dL Calcium (8.4-10.2) mg/dL Magnesium (1.6-2.3) mg/dL Total Bilirubin (0.2-1.3) mg/dL AST (14-36) U/L ALT (0-35) U/L Alkaline Phosphatase (38-126) U/L C-Reactive Prot, Quant (0-10) mg/L Serum Total Protein (6.3-8.2) g/dL Albumin (3.5-5.0) g/dL Accuchecks Date 12/09/24 Date 12/09/24 Date 12/09/24 Time 17:06 Time 11:39 Time 07:37 - Radiology Orders Radiology Orders: Radiology Procedures Category Date Time Status MRA BRAIN WITHOUT CONTRAST [MRI] Routine Exams 12/09/24 13:00 Completed MRA NECK WITH CONTRAST [MRI] Routine Exams 12/09/24 13:00 Completed MRI BRAIN WITH CONTRAST [MRI] Routine Exams 12/09/24 13:00 Completed Impressions & Recommendations - ED Arrival Time ED Arrival Date & Time: ED Arrival Date and Time 12/07/24 10:39 Last known well time: - Recommendations Recommendations: Acute cerebrovascular insufficiency Is patient an IV thrombolytics candidate:no. symptoms resolved Is patient a thrombectomy candidate:no . out of window. symptoms resolved - Admit to stroke unit - Frequent neuro-checks (q4h) - BP goal <130/80 -Replace electrolytes prn -Keep K >4.0, Mg > 2.0. - Head of bed > 30 degrees for aspiration prevention and aspiration precautions Stroke workup: -CTH: no acute lesion -MRA head and neck :left A1 occlusion -MRI brain w/o con:no acute infarct -Trans-thoracic echocardiogram with bubble study -Continuous cardiac telemetry to monitor for arrhythmia -Stroke labwork: HgbA1C, lipid panel, urine drug screen Secondary prevention of stroke: - -asa 81mg daily (patient is o xarelto on PE) -Atorvastatin 40 mg daily (long-term goal LDL < 70) -Tight glucose control (long-term goal HgbA1c < 7%) -Stroke education and counseling -If smoker, smoking counseling and offer assistance with smoking cessation (possible nicotine patch) Stroke rehabilitation: -Physical therapy, occupational therapy, speech therapy consults -Consult social work and case management for help with discharge Neurology follow up in 2 weeks Thank you for allowing us to participate in this patient's care. Please call [facility] with questions, concerns, or change in patient's neurological status. This consult was performed via secure telemedicine audio/visual platform with RN assisting at bedside. Patient identity verified and consent obtained. TIQ recieved at [ 1625h EMBALMER ASSISTANT] Neuro Cart Time: 1627h EMBALMER ASSISTANT Delays in Patient Encounter: no Assessment & Plan - Encounter Encounter: "The entirety of this encounter was performed via Telemedicine using audio and visual " Medical Decision making Acute issues prompting hospitalization enumerated, reviewed and managed individually as above. Complexity of Chronic Problems enumerated, reviewed and managed individually as above. Independently interpreted labs and radiology. Risk of morbidity reviewed. Additional testing/treatment as discussed individually above. Discussed findings with patient/family, charge nurse/bedside nurse. Included in the discussion were the latest clinical, laboratory and imaging findings. We also discussed updated working diagnosis, overall impression and updated plan of care. In this discussion, current plan for treatment, medication indication discussed. Patient/family member agreeable to discussed plan of care. I answered all the questions to their satisfaction. Acute care plan was discussed with SEJAL SANCHEZ NP Thank you for allowing us to participate in this patients care. Please call [facility] with questions, concerns, or change in patients neurological status. This consult was performed via secure telemedicine 2 way audio/visual platform, patient consent obtained.
[2024-12-10] MEDS: HUMALOG SQ PRN (00:39)
[2024-12-10 06:54] LABS: Hematocrit 37.2 % (34.1-44.9); Hemoglobin 12.3 g/dL (11.2-15.7); Mean Corpuscular Hemoglobin 28.2 pg (25.6-32.2); Mean Corpuscular Hgb Concent. 33.1 g/dL (32.2-35.5); Platelet Count 188 x10^3/uL (182-369); Red Blood Count 4.36 x10^6/uL (3.93-5.22); White Blood Count 2.9 x10^3/uL (3.98-10.04)
[2024-12-10 07:09] LABS: Calcium 8.7 mg/dL (8.4-10.2); Carbon Dioxide 27.0 mmol/L (22-30); Creatinine 1 0.92 mg/dL (0.52-1.04); EST GLOMERULAR FILTRATION RATE 62.6 ML/MIN; Glucose 193.0 mg/dL (74-106); Potassium 3.9 mmol/L (3.5-5.1)
[2024-12-10] MEDS: ECOTRIN 81 MG PO SCH (09:49)
--- NOTE | 2024-12-10 10:04 | PCM.NOTE ---
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 Despite outpatient management with Lyrica and carbamazepine, her symptoms worsened, and prior interventions including Dilaudid, corticosteroid injection, and intranasal lidocaine provided minimal relief. She was admitted for intractable pain and inpatient pain management and neurology evaluation. On admission, she was hypertensive but otherwise vitally stable, and denied fever, chest pain, GI symptoms, or trauma. On 12/08, she reported continued severe pain (8/10) with partial relief from pain medications and Solu-Medrol. Neurology recommended medication adjustments including: Solu-Medrol 15 mg/kg/day for 3 days, followed by a tapering steroid regimen, Tegretol 600 mg BID, and planned transition to Lyrica CR 660 mg, though the latter is unavailable in-house. A prescription will be sent at discharge. Pharmacy was consulted to enter the steroid taper. Plans include outpatient neurosurgery follow-up, and pending MRI brain with contrast and MRA head/neck with contrast. Additional labs ordered include TSH, B12, SPEP with IPEP, ESR, CRP, ABY, ANCA, MOIZ, and beta-2 microglobulin. She was also started on Pepcid 20 mg BID, and Tegretol levels will be monitored. On 12/09, the patient reported no pain and denied any further concerns. Notably, CO2 was 17, and a sodium bicarbonate drip was started. She will remain hospitalized for the 3-day course of IV steroids. MRI and MRA remain pending. Pt reports a family hx of brain tumors as she had a sister and niece pass from one. She has anxiety about the MRI results and states she will not have surgery if needed. 12/10 The patient is resting in bed and appears very tired today. She became confused again overnight and pulled out her IV. This morning, she is alert to person and time but not to place. Her neurological exam is otherwise non-concerning. The patient believes that her sleepiness is due to the Tegretol. Neurology has been reconsulted to evaluate the possibility of adjusting her medication dose to help reduce daytime fatigue and nighttime confusion. She will remain hospitalized for one more night to complete her course of IV steroids for trigeminal neuralgia, with plans to discharge tomorrow. At this time, she denies any pain or other concerns. MRI with MRA showed: Occluded left A1 segment with remaining left BARBI supplied via anterior communicating artery. 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 Remaining MRA algaaciq of Bennett is negative. Discussed findings with neurology yesterday and he stated to add 81 mg of aspirin daily in combination with her current blood thinner. He stated that she could follow-up outpatient with neurology upon discharge as she has no neurological deficits at this time. - Review of Systems Constitutional: No Fever, No Chills Eyes: No Symptoms Ears, Nose, & Throat: No Symptoms Respiratory: No Cough, No Short Of Breath Cardiac: No Chest Pain, No Edema, No Syncope Abdominal/Gastrointestinal: No Abdominal Pain, No Nausea, No Vomiting, No Diarrhea Genitourinary Symptoms: No Dysuria Musculoskeletal: No Back Pain, No Neck Pain Skin: No Rash Neurological: Other (confusion), No Dizziness, No Focal Weakness, No Sensory Changes Psychological: No Symptoms Endocrine: No Symptoms Hematologic/Lymphatic: No Symptoms Immunological/Allergic: No Symptoms Objective Exam General Appearance: no apparent distress, alert Neurologic Exam: alert, cooperative, online tutor II-XII nml as tested, normal mood/affect, nml cerebellar function, sensation nml, confusion, other (oriented x2), No motor deficits Skin Exam: normal color, warm, dry Eye Exam: PERRL, EOMI, eyes nml inspection Ears, Nose, Throat Exam: normal ENT inspection, pharynx normal, moist mucous membranes Neck Exam: normal inspection, non-tender, supple, full range of motion Respiratory Exam: normal breath sounds, lungs clear, No respiratory distress Cardiovascular Exam: regular rate/rhythm, normal heart sounds Gastrointestinal/Abdomen Exam: soft, No tenderness, No mass Extremity Exam: normal inspection, normal range of motion Back Exam: normal inspection, normal range of motion, No CVA tenderness, No vertebral tenderness Pelvic Exam: deferred Rectal Exam: deferred Objective Data Vital Signs: Vital Signs - 24 hr Temp Pulse Resp BP Pulse Ox 12/10/24 07:49 97.9 F 56 L 20 144/72 93 L 12/10/24 04:00 97.7 F 66 16 135/83 92 L 12/09/24 23:33 97.2 F 68 15 135/68 92 L 12/09/24 19:42 97.1 F 70 15 128/69 91 L 12/09/24 16:00 97.8 F 70 16 133/63 98 12/09/24 11:43 97.9 F 61 12 133/72 99 Pain Assessment - Last Documented Pain Intensity 4 Pain Scale Used 0-10 Pain Scale Intake and Output: Intake & Output 12/07/24 12/08/24 12/09/24 12/10/24 11:59 11:59 11:59 11:59 Intake Total 1076 3372 2418 Balance 1076 3372 2418 Weight 73.2 kg 73.4 kg 78.5 kg Lab Results: Lab Results-Last 24 Hours 12/07/24 12/09/24 12/09/24 Range/Units 05:30 11:33 16:58 WBC (3.98-10.04) x10^3/uL RBC (3.93-5.22) x10^6/uL Hgb (11.2-15.7) g/dL Hct (34.1-44.9) % MCV (79.4-94.8) fL MCH (25.6-32.2) pg MCHC (32.2-35.5) g/dL RDW (11.7-14.4) % Plt Count (182-369) x10^3/uL MPV (9.4-12.3) fL Sodium (135-145) mmol/L Potassium (3.5-5.1) mmol/L Chloride (98-107) mmol/L Carbon Dioxide (22-30) mmol/L Anion Gap (5-15) MEQ/L BUN (7-17) mg/dL Creatinine (0.52-1.04) mg/dL Estimated GFR ML/MIN Glucose (74-106) mg/dL POC Glucometer 220 H 207 H (74 to 106) mg/dL Calcium (8.4-10.2) mg/dL C-Reactive Prot, Quant 8 (0-10) mg/L Carbamazepine (4.0-12.0) ug/mL 12/09/24 12/10/24 12/10/24 Range/Units 22:45 00:20 02:07 WBC (3.98-10.04) x10^3/uL RBC (3.93-5.22) x10^6/uL Hgb (11.2-15.7) g/dL Hct (34.1-44.9) % MCV (79.4-94.8) fL MCH (25.6-32.2) pg MCHC (32.2-35.5) g/dL RDW (11.7-14.4) % Plt Count (182-369) x10^3/uL MPV (9.4-12.3) fL Sodium (135-145) mmol/L Potassium (3.5-5.1) mmol/L Chloride (98-107) mmol/L Carbon Dioxide (22-30) mmol/L Anion Gap (5-15) MEQ/L BUN (7-17) mg/dL Creatinine (0.52-1.04) mg/dL Estimated GFR ML/MIN Glucose (74-106) mg/dL POC Glucometer 368 H 401 H 337 H (74 to 106) mg/dL Calcium (8.4-10.2) mg/dL C-Reactive Prot, Quant (0-10) mg/L Carbamazepine (4.0-12.0) ug/mL 12/10/24 12/10/24 12/10/24 Range/Units 04:56 06:30 06:30 WBC 2.9 L (3.98-10.04) x10^3/uL RBC 4.36 (3.93-5.22) x10^6/uL Hgb 12.3 (11.2-15.7) g/dL Hct 37.2 (34.1-44.9) % MCV 85.3 (79.4-94.8) fL MCH 28.2 (25.6-32.2) pg MCHC 33.1 (32.2-35.5) g/dL RDW 14.7 H (11.7-14.4) % Plt Count 188 (182-369) x10^3/uL MPV 10.0 (9.4-12.3) fL Sodium (135-145) mmol/L Potassium (3.5-5.1) mmol/L Chloride (98-107) mmol/L Carbon Dioxide (22-30) mmol/L Anion Gap (5-15) MEQ/L BUN (7-17) mg/dL Creatinine (0.52-1.04) mg/dL Estimated GFR ML/MIN Glucose (74-106) mg/dL POC Glucometer 233 H (74 to 106) mg/dL Calcium (8.4-10.2) mg/dL C-Reactive Prot, Quant (0-10) mg/L Carbamazepine 11.6 (4.0-12.0) ug/mL 12/10/24 12/10/24 12/10/24 Range/Units 06:30 07:16 07:18 WBC (3.98-10.04) x10^3/uL RBC (3.93-5.22) x10^6/uL Hgb (11.2-15.7) g/dL Hct (34.1-44.9) % MCV (79.4-94.8) fL MCH (25.6-32.2) pg MCHC (32.2-35.5) g/dL RDW (11.7-14.4) % Plt Count (182-369) x10^3/uL MPV (9.4-12.3) fL Sodium 142 (135-145) mmol/L Potassium 3.9 (3.5-5.1) mmol/L Chloride 107 (98-107) mmol/L Carbon Dioxide 27 (22-30) mmol/L Anion Gap 12.0 (5-15) MEQ/L BUN 32 H (7-17) mg/dL Creatinine 0.92 (0.52-1.04) mg/dL Estimated GFR 62.6 ML/MIN Glucose 193 H (74-106) mg/dL POC Glucometer TNP 171 H (74 to 106) mg/dL Calcium 8.7 (8.4-10.2) mg/dL C-Reactive Prot, Quant (0-10) mg/L Carbamazepine (4.0-12.0) ug/mL Radiology Exams: Radiology Procedures Category Date Time Status MRA BRAIN WITHOUT CONTRAST [MRI] Routine Exams 12/09/24 13:00 Completed MRA NECK WITH CONTRAST [MRI] Routine Exams 12/09/24 13:00 Completed MRI BRAIN WITH CONTRAST [MRI] Routine Exams 12/09/24 13:00 Completed Medications: Medications Generic Name Dose Route Start Last Admin Trade Name Freq PRN Reason Stop Dose Admin Acetaminophen 650 mg 12/07/24 15:30 12/08/24 20:34 Acetaminophen 325 Mg Tablet PO 01/06/25 15:29 650 mg Q4H PRN PRN Administration PAIN, FEVER, HEADACHE Aspirin 81 mg 12/10/24 10:00 12/10/24 09:49 Aspirin 81 Mg Tablet.Ec PO 01/09/25 09:59 81 mg DAILY JOHNATHAN Administration Carbamazepine 600 mg 12/08/24 22:00 12/10/24 09:49 Carbamazepine 200 Mg Tablet PO 01/06/25 21:59 600 mg BID JOHNATHAN Administration Methylprednisolone Sodium 0 mg 12/11/24 10:00 Succinate 80 mg/ Sterile Water IV 12/13/24 10:01 2 ml DAILY JOHNATHAN Famotidine 20 mg 12/08/24 22:00 12/10/24 09:55 Famotidine 20 Mg/1 Vial IV 01/07/25 21:59 Not Given BID JOHNATHAN Hydromorphone HCl 0.5 mg 12/07/24 15:44 12/08/24 15:40 Hydromorphone 1 Mg/1ml Inj IV 12/12/24 15:42 0.5 mg Q2H PRN PRN Administration PAIN Methylprednisolone Sodium 100 mls @ 50 mls/hr 12/08/24 16:00 12/09/24 15:09 Succinate 1,000 mg/ Sodium IV 12/10/24 17:59 50 mls/hr Chloride Q24H JOHNATHAN Administration Sodium Bicarbonate 150 meq/ 1,150 mls @ 100 mls/hr 12/09/24 08:30 12/10/24 04:36 Dextrose IV 01/08/25 08:29 100 mls/hr .[id number] JOHNATHAN 100 mls/hr Administration Insulin Human Lispro 0 unit 12/10/24 00:32 12/10/24 00:39 Insulin Lispro 1 Unit SQ 01/09/25 00:31 13 unit UD PRN Administration HYPERGLYCEMIA Lidocaine 1 patch 12/08/24 10:00 12/10/24 09:53 Lidocaine Hcl 1 Patch Patch TOP 01/07/25 09:59 Not Given DAILY JOHNATHAN Lisinopril 20 mg 12/08/24 10:00 12/10/24 09:50 Lisinopril 20 Mg Tablet PO 01/07/25 09:59 20 mg DAILY JOHNATHAN Administration Metoprolol Succinate 25 mg 12/08/24 10:00 12/10/24 09:50 Metoprolol Succinate 25 Mg Xl Tab PO 01/07/25 09:59 25 mg DAILY JOHNATHAN Administration Naloxone HCl 0.4 mg 12/07/24 15:44 Naloxone Hcl 0.4 Mg/Ml Ml IV 01/06/25 15:43 PRN PRN OVERDOSE Non-Formulary Medication 1 each 12/08/24 22:00 12/09/24 22:56 Remove Patch 1 Each TOP 01/07/25 21:59 1 each HS JOHNATHAN Administration Ondansetron HCl 4 mg 12/07/24 15:30 Ondansetron Hcl 4 Mg/2 Ml Vial IV 01/06/25 15:29 Q6H PRN PRN NAUSEA/VOMITING Pantoprazole Sodium 40 mg 12/08/24 10:00 12/10/24 08:14 Pantoprazole 40 Mg Vial IV 01/06/25 16:29 40 mg DAILY JOHNATHAN Administration Potassium Chloride 20 meq 12/08/24 10:00 12/10/24 09:43 Potassium Chloride Tab 10 Meq Tab PO 01/07/25 09:59 20 meq DAILY JOHNATHAN Administration Prednisone 50 mg 12/14/24 10:00 Prednisone 20 Mg Tablet PO 12/15/24 10:01 BID JOHNATHAN Pregabalin 200 mg 12/08/24 10:00 12/10/24 09:43 Pregabalin 100 Mg Capsule PO 01/07/25 09:59 200 mg TID JOHNATHAN Administration Rivaroxaban 20 mg 12/08/24 22:00 12/09/24 22:43 Rivaroxaban 10 Mg Tablet PO 01/07/25 21:59 20 mg QHS JOHNATHAN Administration Discontinued Medications Generic Name Dose Route Start Last Admin Trade Name Freq PRN Reason Stop Dose Admin Hydrocodone Bitart/Acetaminophen 2 tab 12/07/24 11:23 12/07/24 11:36 Hydrocodone/Apap 5/325 1 Tab Tablet PO 12/07/24 11:24 2 tab STAT ONE Administration Hydrocodone Bitart/Acetaminophen Confirm 12/07/24 11:36 Hydrocodone/Apap 5/325 1 Tab Tablet Administered 12/07/24 11:37 Dose 2 tab .ROUTE .STK-MED ONE Hydrocodone Bitart/Acetaminophen 1 tablet 12/07/24 15:30 Hydrocodone/Acetamin 10-325 Mg Tablet PO 12/12/24 15:29 Q4H PRN PRN PAIN Carbamazepine 200 mg 12/07/24 22:00 12/08/24 11:03 Carbamazepine 200 Mg Tablet PO 01/06/25 21:59 200 mg BID JOHNATHAN Administration Carbamazepine 400 mg 12/08/24 15:30 12/08/24 15:35 Carbamazepine 200 Mg Tablet PO 12/08/24 15:31 400 mg ONCE ONE Administration Methylprednisolone Sodium 0 mg 12/07/24 15:30 12/08/24 11:02 Succinate 40 mg/ Sterile Water IV 01/06/25 15:29 40 mg 1 ml Q12HT JOHNATHAN Administration Famotidine 20 mg 12/09/24 10:00 Famotidine 20 Mg/1 Vial IV 01/08/25 09:59 DAILY JOHNATHAN Hydromorphone HCl 1 mg 12/07/24 13:01 12/07/24 13:18 Hydromorphone 1 Mg/1ml Inj IV 12/07/24 13:02 1 mg STAT ONE Administration Hydromorphone HCl Confirm 12/07/24 13:18 Hydromorphone 1 Mg/1ml Inj Administered 12/07/24 13:19 Dose 1 mg .ROUTE .STK-MED ONE Hydromorphone HCl 1 mg 12/07/24 15:30 Hydromorphone 1 Mg/1ml Inj IV 12/12/24 15:29 Q4H PRN PRN PAIN Hydromorphone HCl Confirm 12/08/24 05:13 Hydromorphone 1 Mg/1ml Inj Administered 12/08/24 05:14 Dose 1 mg .ROUTE .STK-MED ONE Sodium Chloride 1,000 mls @ 75 mls/hr 12/07/24 16:30 12/08/24 07:35 Sodium Chloride 0.9% 1000 Ml IV 01/06/25 16:29 75 mls/hr .[id number] JOHNATHAN Administration Sodium Chloride Confirm 12/08/24 07:31 Sodium Chloride 0.9% 1000 Ml Administered 12/08/24 07:32 Dose 1,000 mls @ ud .ROUTE .STK-MED ONE Sodium Chloride 1,000 mls @ 100 mls/hr 12/08/24 10:22 12/09/24 08:01 Sodium Chloride 0.9% 1000 Ml IV 01/06/25 16:29 Not Given .Q10H JOHNATHAN Insulin Human Lispro 0 unit 12/07/24 15:30 12/09/24 22:55 Insulin Lispro 1 Unit SQ 01/06/25 15:29 8 unit UD PRN Administration HYPERGLYCEMIA Lidocaine Confirm 12/07/24 15:58 Lidocaine Hcl 1 Patch Patch Administered 12/07/24 15:59 Dose 1 patch .ROUTE .STK-MED ONE Methylprednisolone Sodium Succinate Confirm 12/07/24 15:58 Methylprednisolone Sod Suc 40m 40 Mg/Ml Vial Administered 12/07/24 15:59 Dose 40 mg .ROUTE .STK-MED ONE Methylprednisolone Sodium Succinate Confirm 12/07/24 22:20 Methylprednisolone Sod Suc 40m 40 Mg/Ml Vial Administered 12/07/24 22:21 Dose 40 mg .ROUTE .STK-MED ONE Non-Formulary Medication 40 mg 12/08/24 10:00 Esomeprazole Magnesium [Nexium] PO 01/07/25 09:59 DAILY JOHNATHAN Pantoprazole Sodium 40 mg 12/07/24 16:30 12/07/24 18:11 Pantoprazole 40 Mg Vial IV 01/06/25 16:29 40 mg Q24H JOHNATHAN Administration Pregabalin 200 mg 12/07/24 22:00 12/07/24 22:26 Pregabalin 150 Mg Capsule PO 01/06/25 21:59 200 mg TID JOHNATHAN Administration Pregabalin Confirm 12/07/24 22:19 Pregabalin 50 Mg Capsule Administered 12/07/24 22:20 Dose 50 mg .ROUTE .STK-MED ONE Rivaroxaban 20 mg 12/08/24 10:00 12/08/24 11:09 Rivaroxaban 10 Mg Tablet PO 01/07/25 09:59 Not Given DAILY JOHNATHAN Sterile Water Confirm 12/07/24 15:58 Water For Injection,Sterile 10 Ml Vial Administered 12/07/24 15:59 Dose 10 ml IJ .STK-MED ONE Sterile Water Confirm 12/07/24 22:20 Water For Injection,Sterile 10 Ml Vial Administered 12/07/24 22:21 Dose 10 ml IJ .STK-MED ONE Assessment/Plan (1) Trigeminal neuralgia Current Visit: Yes Status: Acute Code(s): G50.0 - TRIGEMINAL NEURALGIA (2) Intractable pain Current Visit: Yes Status: Resolved Code(s): R52 - PAIN, UNSPECIFIED (3) Diabetes mellitus Current Visit: Yes Status: Chronic Qualifiers: Diabetes mellitus type: type 2 Diabetes mellitus 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 insulin use: without prison use Diabetes mellitus complication status: without complication Qualified Code(s): E11.9 - Type 2 diabetes mellitus without complications Code(s): E11.9 - TYPE 2 DIABETES MELLITUS WITHOUT COMPLICATIONS (4) HTN (hypertension) Current Visit: Yes Status: Chronic Qualifiers: Hypertension type: primary hypertension Qualified Code(s): I10 - Essential (primary) hypertension Code(s): I10 - ESSENTIAL (PRIMARY) HYPERTENSION (5) History of DVT (deep vein thrombosis) Current Visit: Yes Status: Acute Code(s): Z86.718 - PERSONAL HISTORY OF OTHER VENOUS THROMBOSIS AND EMBOLISM (6) Obesity (BMI 30.0-34.9) Current Visit: Yes Status: Chronic Assessment & Plan: (1) Trigeminal neuralgia Current Visit: Yes Status: Acute Assessment & Plan: - Neurology note reviewed and agree with plan of care. - Meds changed per neuro recs - Pain resolved today - Continue IV steroids x3 days - narcotic pain med PRN - CBC, CMP reviewed - Pt refused surgery OP if recommended and will f/u with pain mgnt at d/c 12/10 - MRI and MRA reviewed: Impression: Occluded left A1 segment with remaining left BARBI supplied via anterior communicating artery. 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 Remaining MRA algaaciq of Bennett is negative. 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 insulin use: without 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 use Diabetes mellitus complication status: without complication Qualified Code(s): E11.9 - Type 2 diabetes mellitus without complications Assessment & Plan: - A1c 6.19- controlled -ADA diet -SSI low dose -adjust as needed with steroids Code(s): E11.9 - TYPE 2 DIABETES MELLITUS WITHOUT COMPLICATIONS (4) HTN (hypertension) Current Visit: Yes Status: Chronic Qualifiers: Hypertension type: primary hypertension Qualified Code(s): I10 - Essential (primary) hypertension Assessment & Plan: - BP controlled - Continue home med Code(s): I10 - ESSENTIAL (PRIMARY) HYPERTENSION (5) History of DVT (deep vein thrombosis) Current Visit: Yes Status: Acute Assessment & Plan: -Continue home xarelto -Also h/o of PE Code(s): Z86.718 - PERSONAL HISTORY OF OTHER VENOUS THROMBOSIS AND EMBOLISM (6) Obesity (BMI 30.0-34.9) Current Visit: Yes Status: Chronic Assessment & Plan: - Advised ADA diet and exercise control Code(s): E66.811 - OBESITY, CLASS 1 Code(s): E66.811 - OBESITY, CLASS 1 (7) Confusion Current Visit: Yes Status: Acute Assessment & Plan: - Pt having acute confusion at night - Pt pulled out IV last night - Neurology re-consulted today as pt feels Tegretol dosing is too much and would like lowered. VTE: Xarelto PPI: protonix Code status: SCO Next of KIN: Spouse- Toni Ying [phone] D/C plan: tomorrow Evaluation and management time of care: > 40 minutes Code(s): R41.0 - DISORIENTATION, UNSPECIFIED
[2024-12-10 15:08] LABS: ACE <15 U/L (14-82)
[2024-12-10 15:13] LABS: Antinuclear Antiboides, IFA Negative (.)
[2024-12-10 17:08] LABS: Albumin 3.3 g/dL (2.9-4.4); Alpha-1-Globulin 0.2 g/dL (0.0-0.4); Alpha-2-Globulin 0.7 g/dL (0.4-1.0); Gamma Globulin 0.7 g/dL (0.4-1.8)
--- NOTE | 2024-12-10 21:43 | PCM.NOTE ---
Date and Time: 12/10/242141 Subjective Assessment: al Template * Patient identity was confirmed at the beginning of the consult with the patient/family/staff using two personal identifiers * Clear Other Lalita Ying Female , 79 y.o. (1945) Hospital Clock 21:21 EDT [facility] [place] See more Neuro Cohort 2 Neuro Emergency Patient Location and Admission Status * Chief Complaint * R trigeminal neuralgia intractable pain HISTORY OF PRESENT ILLNESS Family members and medical staff present * GERARDO Simms History of present illness (Include relevant elements: Location, Severity, Timing, Quality, Duration, Context, Modifying Factors, Signs, Symptoms) * Consultation Placed in External EMR- [facility] Patient is an 79 yr. old RH woman who presents to the hospital..... secondary to severe intractable 1 week hx of pain for R trigeminal neuralgia/ was placed on steroids/ dilaudid/ anti-inflammatory agents/ lidocaine patch / Solumedrol IV..... no hx of facial trauma or facial injury.... no supervisor roller printing demyelinating disease/... case reviewed w Dr. Benitez... plan IV solumedrol as delineated in plan/ Increase Tegretol/ and Lyrica..... and future MRI Brain w tim/ MRA head/neck w tim/ as well as Neurosurgical eval for skull based decompression evaluation for intractable R Trigeminal neuralgia..... Reconsultation requested on 12/10/2024- due to patient not wanting to be discharged on Tegretol Patient feels signficantly improved since the addition of steroids...Patient has been ataxic... states that she has difficulty w higher doses of Tegretol... Carbamezapine level.... 11.6.... range.. Patient states that she has minimal pain at this time... but a slight R perioral paresthesia...... angle of lower lip.... No significant lancinating pain.... patient concerned that she will become Toxic on current elevated dosing regimen of Tegretol... plan decrease to 400mg BID dosing Tegretol and Maintain high dose Lyrica.... 200mg TID in combination/ as well as slow steroid taper... case reviewed w RN at bedside...[place]. Review Of Systems Review Of Systems Guide Pertinent Review of Systems * Review of Systems * Constitutional: Denies fevers, chills, weight loss ENT: Denies tinnitus Ophthalmology: Denies diplopia, blurred vision, vision loss Respiratory: Denies SOB, cough Cardiovascular: Denies chest pains, palpitations GI: Denies nausea, vomiting : Denies hematuria Hematology: Denies excessive bleeding Musculoskeletal: Denies back pain, neck pain, joint pain Neurology: Denies headache, altered mentation Mental Health: Denies anxiety Dermatology: Denies rash To my knowledge, this ROS is complete and accurate * Medical History Unable to assess Medical History * Clear Past Medical History Includes Other Medical History Past Procedures Clear Other Past Procedures R hip ORIF bilateral patellar replacements Allergies Unable to assess Allergies * Clear Other Allergies Medications Unable to assess Anti-Coagulants * Clear Xarelto 20mg q day Anti-Platelets * Clear Other Medications Lyrica 200mg TID Ozempic 0.25mg q week KCl 20 me q Metformin 500mg q day Enalapril 10mg q day HCTZ 12.5mg qday Xarelto 20mg q day Tegretol 600mg BID- decrease Tegretol 400mg BID on current 2 way video eval... - IV solumedrol completed..... 40mg IV q 12 hrs..... Social History * Alcohol Use Clear Illicit Drug Use Clear Tobacco Use Clear Other Social History lives at home w family Family History Pertinent Family History * Clear Other Family History Vital Signs * Unable to obtain Date & Time 12/10 08:36 Recorded By jose reyes Afebrile Temperature (F/C) 98.2 / 36.8 Blood Pressure 140/70 mm Hg Heart Rate 74 bpm Respiration Rate 18 bpm O2 Sat 98 % POC Glucose Weight LB/KG 163 / 73.9 BMI Means of Collecting Patient Weight Patient weighed at hospital Pain Assessment 0 -None Oxy.Delivery Room Air EKG Rhythm Sinus Rhythm Comments Exam Exam * Neuro exam: Patient awake/ alert/ oriented in 4 spheres. Speech is fluent/ naming is intact/ Repetition intact/ no evidence of aphasia noted. No dysarthria noted. clinical evaluator - pupils (=) 4-2mm bilaterally/ EOMs intact in all directions of gaze/symmetric facial sensation V1-2 -3 bilaterally/ symmetrical facial upper/ lower noted/ audition intact/ tongue midline/ phonation intact/ + gag reflex intact/ SCMs(=) Motor exam- no pronator drift/ 4/5+ bilateral UEs/ LEs proximal to distal Sensory-intact to light touch throughout bilateral UEs/ LEs/ no agraphesthesia/ no astereognosis/ no double simultaneous extinction DTRs- deferred/ no babinski sign illicited Cerebellar- finger to nose/ heel-saavedra (=)/ no dysmetria noted/ no overshoot nystagmus/ no rebound phenomenon Gait- not tested Fine motor- no resting tremor/ no myoclonus/ no abnormal involuntary movements/ no choreiform movements Gen: No apparent distress, non-toxic appearing Psych: normal affect HEENT: No visible bruising, no mucosal pallor Ophth: No scleral icterus, no conjunctival injection or proptosis Neck: No nuchal rigidity, turns neck without difficulty Resp: normal respirations, no distress, speaking in full sentences CV: No visible edema in LE Abd: No abd distention noted MSK: No joint swelling, erythema noted. No contractures noted. Skin: No pallor. No visible rashes or bruising Clinician assisting with exam GERARDO Simms RN NIH Stroke Scale Unable to assess Recorded by: jose reyes Recorded On: 12/10 08:24 NIH Stroke Scale Score: 0 see details labs And Imaging I reviewed labs Clear I reviewed diagnostic reports such as radiological imaging, echocardiogram, and EEG reports Clear I reviewed diagnostics such as radiological images and electroencephalograms Clear Labs and Imaging Comments * Na+ 139 MRA Br- occluded L A1 segement noted MRI br- chronic microvascular disease Assessment Assessment * (To include Patient Summary, Differential Diagnoses, Medical Reasoning, and Diagnosis) 1. Trigeminal neuralgia R Diagnosis Diagnosis * Trigeminal Neuralgia R Case Discussed With * GERARDO Simms Recommendations Recommendations * recommend Prednisone 80- 100mg oral Prednisone per Rheumatology suggestion usually 4 week duration prior to slow taper - begin Pepcid 20mg PO BID - monitor IL- 6 activity for underlying inflammatory activity, as well as ESR and CRP levels ongoing - Rheumatology eval - Neurosurgical eval for skull based decompression R trigeminal nv- declined by patient I have obtained verbal consent from patient/surrogate for two-way audio/visual encounter * Clear Portions of the evaluation were not assessed due to the following Other THROMBOLYSIS INCLUSION/EXCLUSION CRITERIA Inclusion Criteria Must answer YES to ALL in order to proceed with thrombolysis. Clear All Symptoms suggestive of ischemic stroke that are deemed disabling Able to initiate treatment within 4.5 hours of time last known well? Age 18 years or older Exclusion Criteria Physicians with expertise in cerebrovascular disease may deem thrombolysis to be reasonable in the presence of one or more exclusion criteria after careful consideration of potential risk versus benefit to the patient. Default all to No Default all to Yes Clear All Acute intracranial hemorrhage (ICH) History of ICH other than history of cerebral microbleeds Unable to maintain BP <185/110 despite aggressive antihypertensive treatment Acute internal bleeding Severe head trauma within last 3 months Arterial puncture at non-compressible site within 7 days Infective endocarditis Gastrointestinal bleeding within last 21 days or structural GI malignancy Intracranial or spinal surgery within last 3 months Thrombocytopenia: platelet count <100 000/mm3 INR > 1.7, PT > 15 or PTT > 40 Low-Molecular Weight Heparin within preceding 24 hours Direct Thrombin Inhibitors or Factor Xa Inhibitors within preceding 48 hours Relative Exclusion Criteria Physicians with expertise in cerebrovascular disease may deem thrombolysis to be reasonable in the presence of one or more exclusion criteria after careful consideration of potential risk versus benefit to the patient. Clear All Ischemic stroke within last 3 months Major trauma (excluding head trauma) within past 14 days Severe Hypoglycemia (below 50 mg/dL) or Hyperglycemia (above 400 mg/dL) Wake-Up Stroke Inclusion Criteria Patient with suspected ischemic stroke who wake up with stroke symptoms or have unclear time of onset, and present within 4.5 hours of stroke symptom recognition may be considered for thrombolytic treatment based upon MR imaging and the following criteria Clear THROMBOLYSIS RECOMMENDATION Thrombolysis Recommended ? 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) G50.0 Trigeminal neuralgia G50.1 Atypical facial pain Z86.69 Personal history of other diseases of the nervous system and sense organs BILLING CHARGE CODE CHARGE DESCRIPTION DIAGNOSES DATE OF SERVICE G0408 G0408 - Level 3- ComplexFollow Up - Detailed Hx, Detailed Exam, High Complexity MDM I66.12, G50.0, G50.1, Z86.69 Dec 10, 2024, 08:35 pm Attestation Interaction Mode * Video * First Video Attempt System Logged: 12/10/2024 20:24 12/10/2024 20:24 mm/dd/yyyy hh:mm (24 Hr) Phone * First Phone Attempt System Logged: 12/10/2024 20:34 12/10/2024 20:34 mm/dd/yyyy hh:mm (24 Hr) Your Current Location Enter Current Zip Code * [address] Last saved 59s ago. Auto Launch Available Clinical Contact All Video Carts [facility] (Access Cart 4.0) Available [facility] (Access Cart 4.1)selected Available Phone Only Rapid Room Contact Numbers Provided at intake GREARDO Simms [phone] Callback Number [phone] Number not listed? Enter valid 10-digit number E.g. ([phone]) [phone] All other numbers Readiness Form Template Change forms: Consult Note General Review Of Systems Medical History Allergies & Medications Social & Family History Vital Signs Exam NIH Stroke Scale Labs & Imaging Assessment Diagnosis Recommendations Thrombolysis I/E Criteria Thrombolysis Recommendation Billing/Diagnosis Attestation Telemed IQ 11.7.0 Access TeleSecure-24 2024 Objective Exam - Vital Signs Vital Signs: Vital Signs - 24 hr 12/09/24 12/10/24 12/10/24 23:33 04:00 07:49 Temperature 97.2 F 97.7 F 97.9 F Pulse Rate 68 66 56 L Respiratory 15 16 20 Rate Blood Pressure 135/68 135/83 144/72 [Left Arm] O2 Sat by Pulse 92 L 92 L 93 L Oximetry 12/10/24 12/10/24 12/10/24 12:00 16:00 20:00 Temperature 97.8 F 97.7 F 97.3 F Pulse Rate 73 60 70 Respiratory 22 20 20 Rate Blood Pressure 133/73 170/74 171/74 [Left Arm] O2 Sat by Pulse 93 L 93 L 92 L Oximetry - NIHSS Level of Consciousness: Alert Level of Questions: Answers both correctly LOC Commands: Obeys both correctly Best Gaze: Normal Visual: No visual loss Facial Palsy: Normal Motor Arm-Left: No Drift Motor Arm-Right: No Drift Motor Leg-Left: No Drift Motor Leg Right: No Drift Limb Ataxia: Absent Sensory: Partial Loss Best Language: No apashia Dysarthria: Normal aticulation Extinction and Inattention: No Neglect Stroke Risk Level: 1 (right face hyperesthesia is chronic. No new deficit) Objective Data - Labs Lab/Micro Results: Lab Results-Last 24 Hours 12/08/24 12/09/24 12/10/24 Range/Units 06:10 22:45 00:20 WBC (3.98-10.04) x10^3/uL RBC (3.93-5.22) x10^6/uL Hgb (11.2-15.7) g/dL Hct (34.1-44.9) % MCV (79.4-94.8) fL MCH (25.6-32.2) pg MCHC (32.2-35.5) g/dL RDW (11.7-14.4) % Plt Count (182-369) x10^3/uL MPV (9.4-12.3) fL Sodium (135-145) mmol/L Potassium (3.5-5.1) mmol/L Chloride (98-107) mmol/L Carbon Dioxide (22-30) mmol/L Anion Gap (5-15) MEQ/L BUN (7-17) mg/dL Creatinine (0.52-1.04) mg/dL Estimated GFR ML/MIN Glucose (74-106) mg/dL POC Glucometer 368 H 401 H (74 to 106) mg/dL Calcium (8.4-10.2) mg/dL Total Protein Pending Globulin Pending Albumin/Globulin Ratio Pending Beta Globulins Pending Vihb-1-Qcozyfzckihel Pending M-Marko Pending PEP Note Pending Angiotensin Convert Enz <15 (14-82) U/L Carbamazepine (4.0-12.0) ug/mL IgG Pending IgA Pending IgM Pending Serum Immunofixation Pending Albumin (PROSPER) Pending Vvuuu-3-Srcotzuvx PROSPER Pending Gbynp-8-Ehkljnpyw PROSPER Pending Gamma Globulins (PROSPER) Pending ABY Titer Negative (.) c-ANCA Antibody Pending Proteinase 3 (PR3) Ab Pending Atypical p-ANCA Pending p-ANCA Antibody Pending Anti-Myeloperoxidase Ab Pending 12/10/24 12/10/24 12/10/24 Range/Units 02:07 04:56 06:30 WBC (3.98-10.04) x10^3/uL RBC (3.93-5.22) x10^6/uL Hgb (11.2-15.7) g/dL Hct (34.1-44.9) % MCV (79.4-94.8) fL MCH (25.6-32.2) pg MCHC (32.2-35.5) g/dL RDW (11.7-14.4) % Plt Count (182-369) x10^3/uL MPV (9.4-12.3) fL Sodium (135-145) mmol/L Potassium (3.5-5.1) mmol/L Chloride (98-107) mmol/L Carbon Dioxide (22-30) mmol/L Anion Gap (5-15) MEQ/L BUN (7-17) mg/dL Creatinine (0.52-1.04) mg/dL Estimated GFR ML/MIN Glucose (74-106) mg/dL POC Glucometer 337 H 233 H (74 to 106) mg/dL Calcium (8.4-10.2) mg/dL Total Protein Globulin Albumin/Globulin Ratio Beta Globulins Qguw-8-Afogtzzlhbmaz M-Marko PEP Note Angiotensin Convert Enz (14-82) U/L Carbamazepine 11.6 (4.0-12.0) ug/mL IgG IgA IgM Serum Immunofixation Albumin (PROSPER) Dnlrw-0-Cvflpymcw PROSPER Glaxk-9-Dsbpzgwgn PROSPER Gamma Globulins (PROSPER) ABY Titer (.) c-ANCA Antibody Proteinase 3 (PR3) Ab Atypical p-ANCA p-ANCA Antibody Anti-Myeloperoxidase Ab 12/10/24 12/10/24 12/10/24 Range/Units 06:30 06:30 07:16 WBC 2.9 L (3.98-10.04) x10^3/uL RBC 4.36 (3.93-5.22) x10^6/uL Hgb 12.3 (11.2-15.7) g/dL Hct 37.2 (34.1-44.9) % MCV 85.3 (79.4-94.8) fL MCH 28.2 (25.6-32.2) pg MCHC 33.1 (32.2-35.5) g/dL RDW 14.7 H (11.7-14.4) % Plt Count 188 (182-369) x10^3/uL MPV 10.0 (9.4-12.3) fL Sodium 142 (135-145) mmol/L Potassium 3.9 (3.5-5.1) mmol/L Chloride 107 (98-107) mmol/L Carbon Dioxide 27 (22-30) mmol/L Anion Gap 12.0 (5-15) MEQ/L BUN 32 H (7-17) mg/dL Creatinine 0.92 (0.52-1.04) mg/dL Estimated GFR 62.6 ML/MIN Glucose 193 H (74-106) mg/dL POC Glucometer TNP (74 to 106) mg/dL Calcium 8.7 (8.4-10.2) mg/dL Total Protein Globulin Albumin/Globulin Ratio Beta Globulins Shki-4-Ahcfjjylrvziu M-Marko PEP Note Angiotensin Convert Enz (14-82) U/L Carbamazepine (4.0-12.0) ug/mL IgG IgA IgM Serum Immunofixation Albumin (PROSPER) Rpzsu-2-Dexsbxorm PROSPER Rlcii-8-Wnrxfjscj PROSPER Gamma Globulins (PROSPER) ABY Titer (.) c-ANCA Antibody Proteinase 3 (PR3) Ab Atypical p-ANCA p-ANCA Antibody Anti-Myeloperoxidase Ab 12/10/24 12/10/24 12/10/24 Range/Units 07:18 11:13 16:25 WBC (3.98-10.04) x10^3/uL RBC (3.93-5.22) x10^6/uL Hgb (11.2-15.7) g/dL Hct (34.1-44.9) % MCV (79.4-94.8) fL MCH (25.6-32.2) pg MCHC (32.2-35.5) g/dL RDW (11.7-14.4) % Plt Count (182-369) x10^3/uL MPV (9.4-12.3) fL Sodium (135-145) mmol/L Potassium (3.5-5.1) mmol/L Chloride (98-107) mmol/L Carbon Dioxide (22-30) mmol/L Anion Gap (5-15) MEQ/L BUN (7-17) mg/dL Creatinine (0.52-1.04) mg/dL Estimated GFR ML/MIN Glucose (74-106) mg/dL POC Glucometer 171 H 209 H 258 H (74 to 106) mg/dL Calcium (8.4-10.2) mg/dL Total Protein Globulin Albumin/Globulin Ratio Beta Globulins Eyqq-6-Balhcqgrsckts M-Marko PEP Note Angiotensin Convert Enz (14-82) U/L Carbamazepine (4.0-12.0) ug/mL IgG IgA IgM Serum Immunofixation Albumin (PROSPER) Iydfj-8-Vhuwtlplm PROSPER Gcoox-8-Kttdamtnz PROSPER Gamma Globulins (PROSPER) ABY Titer (.) c-ANCA Antibody Proteinase 3 (PR3) Ab Atypical p-ANCA p-ANCA Antibody Anti-Myeloperoxidase Ab 12/10/24 Range/Units 20:57 WBC (3.98-10.04) x10^3/uL RBC (3.93-5.22) x10^6/uL Hgb (11.2-15.7) g/dL Hct (34.1-44.9) % MCV (79.4-94.8) fL MCH (25.6-32.2) pg MCHC (32.2-35.5) g/dL RDW (11.7-14.4) % Plt Count (182-369) x10^3/uL MPV (9.4-12.3) fL Sodium (135-145) mmol/L Potassium (3.5-5.1) mmol/L Chloride (98-107) mmol/L Carbon Dioxide (22-30) mmol/L Anion Gap (5-15) MEQ/L BUN (7-17) mg/dL Creatinine (0.52-1.04) mg/dL Estimated GFR ML/MIN Glucose (74-106) mg/dL POC Glucometer 383 H (74 to 106) mg/dL Calcium (8.4-10.2) mg/dL Total Protein Globulin Albumin/Globulin Ratio Beta Globulins Unoy-9-Etviavvvltpyk M-Marko PEP Note Angiotensin Convert Enz (14-82) U/L Carbamazepine (4.0-12.0) ug/mL IgG IgA IgM Serum Immunofixation Albumin (PROSPER) Wsyrm-6-Hcxikkhfw PROSPER Abnxx-6-Chsdspqlm PROSPER Gamma Globulins (PROSPER) ABY Titer (.) c-ANCA Antibody Proteinase 3 (PR3) Ab Atypical p-ANCA p-ANCA Antibody Anti-Myeloperoxidase Ab Accuchecks Date 12/10/24 Date 12/10/24 Date 12/10/24 Date 12/09/24 Time 22:45 - Radiology Orders Radiology Orders: Radiology Procedures Category Date Time Status MRA BRAIN WITHOUT CONTRAST [MRI] Routine Exams 12/09/24 13:00 Completed MRA NECK WITH CONTRAST [MRI] Routine Exams 12/09/24 13:00 Completed MRI BRAIN WITH CONTRAST [MRI] Routine Exams 12/09/24 13:00 Completed Assessment & Plan - Encounter Encounter: "The entirety of this encounter was performed via Telemedicine using audio and visual "
[2024-12-10] MEDS: Tegretol 200 MG PO SCH (22:00)
[2024-12-11 04:33] LABS: Hematocrit 34.5 % (34.1-44.9); Hemoglobin 11.5 g/dL (11.2-15.7); Mean Corpuscular Hemoglobin 28.9 pg (25.6-32.2); Mean Corpuscular Hgb Concent. 33.3 g/dL (32.2-35.5); Platelet Count 155 x10^3/uL (182-369); Red Blood Count 3.98 x10^6/uL (3.93-5.22); White Blood Count 2.7 x10^3/uL (3.98-10.04)
[2024-12-11 04:47] LABS: Calcium 8.0 mg/dL (8.4-10.2); Carbon Dioxide 30.0 mmol/L (22-30); Creatinine 1 0.78 mg/dL (0.52-1.04); EST GLOMERULAR FILTRATION RATE 76.3 ML/MIN; Glucose 326.0 mg/dL (74-106); Potassium 3.9 mmol/L (3.5-5.1); SGOT/AST 25.0 U/L (14-36); SGPT/ALT 31.0 U/L (0-35); Total Protein 5.5 g/dL (6.3-8.2)
--- NOTE | 2024-12-11 08:17 | PCM.DS ---
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 Despite outpatient treatment with Lyrica and carbamazepine, and prior interventions including Dilaudid and corticosteroid injections, her symptoms worsened. On admission, she was hypertensive but otherwise stable. Neurology recommended a course of high-dose IV Solu-Medrol followed by a taper, Tegretol 600 mg BID (later adjusted to 400 mg BID due to sedation and confusion), and outpatient Lyrica CR upon discharge. She reported no pain by 12/09, though she experienced confusion and fatigue attributed to Tegretol. 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 Neurology recommended the addition of low-dose aspirin and outpatient follow-up. As of 12/11, the patient is awake, alert, no longer confused, and reports tolerable facial pain. She is completing her final IV steroid dose today and will be discharged home with follow-up arranged with neurology, pain management, and her primary care provider. She will continue oral steroids as an outpatient and has no current concerns. Pt had some pain this AM but it has resolved. - Vitals & Intake/Output Vital Signs: Vital Signs Temperature 97.5 F 12/11/24 07:44 Pulse Rate 68 12/11/24 07:44 Respiratory Rate 18 12/11/24 07:44 Blood Pressure 164/76 12/11/24 07:44 O2 Sat by Pulse Oximetry 94 L 12/11/24 07:44 Intake & Output: Intake & Output 12/08/24 12/09/24 12/10/24 12/11/24 11:59 11:59 11:59 11:59 Intake Total 1076 3372 2418 1443 Balance 1076 7822 8383 1443 Weight 73.4 kg 78.5 kg 78.5 kg - Lab Result Diagrams: 12/11/24 04:18 12/11/24 04:18 Lab Results-Last 24 Hrs: Lab Results-Last 24 Hours 12/08/24 12/10/24 12/10/24 Range/Units 06:10 11:13 16:25 WBC (3.98-10.04) x10^3/uL RBC (3.93-5.22) x10^6/uL Hgb (11.2-15.7) g/dL Hct (34.1-44.9) % MCV (79.4-94.8) fL MCH (25.6-32.2) pg MCHC (32.2-35.5) g/dL RDW (11.7-14.4) % Plt Count (182-369) x10^3/uL MPV (9.4-12.3) fL Sodium (135-145) mmol/L Potassium (3.5-5.1) mmol/L Chloride (98-107) mmol/L Carbon Dioxide (22-30) mmol/L Anion Gap (5-15) MEQ/L BUN (7-17) mg/dL Creatinine (0.52-1.04) mg/dL Estimated GFR ML/MIN Glucose (74-106) mg/dL POC Glucometer 209 H 258 H (74 to 106) mg/dL Calcium (8.4-10.2) mg/dL Total Bilirubin (0.2-1.3) mg/dL AST (14-36) U/L ALT (0-35) U/L Alkaline Phosphatase (38-126) U/L Serum Total Protein (6.3-8.2) g/dL Total Protein 5.9 L (6.0-8.5) g/dL Albumin (3.5-5.0) g/dL Globulin 2.6 (2.2-3.9) g/dL Albumin/Globulin Ratio 1.3 (0.7-1.7) Beta Globulins 1.0 (0.7-1.3) g/dL Rand-5-Mhruwwwqxurof Pending M-Marko Not Observed (Not Observed) g/dL PEP Note Comment (.) Angiotensin Convert Enz <15 (14-82) U/L IgG Pending IgA Pending IgM Pending Serum Immunofixation Pending Albumin (PROSPER) 3.3 (2.9-4.4) g/dL Ippuc-3-Ldolkynqq PROSPER 0.2 (0.0-0.4) g/dL Vmxwn-1-Pyvrejvxi PROSPER 0.7 (0.4-1.0) g/dL Gamma Globulins (PROSPER) 0.7 (0.4-1.8) g/dL ABY Titer Negative (.) c-ANCA Antibody Pending Proteinase 3 (PR3) Ab Pending Atypical p-ANCA Pending p-ANCA Antibody Pending Anti-Myeloperoxidase Ab Pending 12/10/24 12/11/24 12/11/24 Range/Units 20:57 04:18 04:18 WBC 2.7 L (3.98-10.04) x10^3/uL RBC 3.98 (3.93-5.22) x10^6/uL Hgb 11.5 (11.2-15.7) g/dL Hct 34.5 (34.1-44.9) % MCV 86.7 (79.4-94.8) fL MCH 28.9 (25.6-32.2) pg MCHC 33.3 (32.2-35.5) g/dL RDW 14.7 H (11.7-14.4) % Plt Count 155 L (182-369) x10^3/uL MPV 10.1 (9.4-12.3) fL Sodium 139 (135-145) mmol/L Potassium 3.9 (3.5-5.1) mmol/L Chloride 104 (98-107) mmol/L Carbon Dioxide 30 (22-30) mmol/L Anion Gap 8.8 (5-15) MEQ/L BUN 27 H (7-17) mg/dL Creatinine 0.78 (0.52-1.04) mg/dL Estimated GFR 76.3 ML/MIN Glucose 326 H (74-106) mg/dL POC Glucometer 383 H (74 to 106) mg/dL Calcium 8.0 L (8.4-10.2) mg/dL Total Bilirubin 0.10 L (0.2-1.3) mg/dL AST 25 (14-36) U/L ALT 31 (0-35) U/L Alkaline Phosphatase 92 (38-126) U/L Serum Total Protein 5.5 L (6.3-8.2) g/dL Total Protein (6.0-8.5) g/dL Albumin 3.3 L (3.5-5.0) g/dL Globulin (2.2-3.9) g/dL Albumin/Globulin Ratio (0.7-1.7) Beta Globulins (0.7-1.3) g/dL Roux-6-Amvvexoosypkm M-Marko (Not Observed) g/dL PEP Note (.) Angiotensin Convert Enz (14-82) U/L IgG IgA IgM Serum Immunofixation Albumin (PROSPER) (2.9-4.4) g/dL Skejg-5-Zixwrrmzg PROSPER (0.0-0.4) g/dL Zgktk-2-Byiblzvwx PROSPER (0.4-1.0) g/dL Gamma Globulins (PROSPER) (0.4-1.8) g/dL ABY Titer (.) c-ANCA Antibody Proteinase 3 (PR3) Ab Atypical p-ANCA p-ANCA Antibody Anti-Myeloperoxidase Ab 12/11/24 12/11/24 Range/Units 06:29 07:20 WBC (3.98-10.04) x10^3/uL RBC (3.93-5.22) x10^6/uL Hgb (11.2-15.7) g/dL Hct (34.1-44.9) % MCV (79.4-94.8) fL MCH (25.6-32.2) pg MCHC (32.2-35.5) g/dL RDW (11.7-14.4) % Plt Count (182-369) x10^3/uL MPV (9.4-12.3) fL Sodium (135-145) mmol/L Potassium (3.5-5.1) mmol/L Chloride (98-107) mmol/L Carbon Dioxide (22-30) mmol/L Anion Gap (5-15) MEQ/L BUN (7-17) mg/dL Creatinine (0.52-1.04) mg/dL Estimated GFR ML/MIN Glucose (74-106) mg/dL POC Glucometer 261 H 265 H (74 to 106) mg/dL Calcium (8.4-10.2) mg/dL Total Bilirubin (0.2-1.3) mg/dL AST (14-36) U/L ALT (0-35) U/L Alkaline Phosphatase (38-126) U/L Serum Total Protein (6.3-8.2) g/dL Total Protein (6.0-8.5) g/dL Albumin (3.5-5.0) g/dL Globulin (2.2-3.9) g/dL Albumin/Globulin Ratio (0.7-1.7) Beta Globulins (0.7-1.3) g/dL Jjrx-9-Mlahburfytugo M-Marko (Not Observed) g/dL PEP Note (.) Angiotensin Convert Enz (14-82) U/L IgG IgA IgM Serum Immunofixation Albumin (PROSPER) (2.9-4.4) g/dL Ubhuj-2-Ncyfgxojf PROSPER (0.0-0.4) g/dL Mxldl-3-Pchgpnuvc PROSPER (0.4-1.0) g/dL Gamma Globulins (PROSPER) (0.4-1.8) g/dL ABY Titer (.) c-ANCA Antibody Proteinase 3 (PR3) Ab Atypical p-ANCA p-ANCA Antibody Anti-Myeloperoxidase Ab Micro Results-Entire Visit: Accuchecks Date 12/11/24 Date 12/10/24 Date 12/10/24 - Radiology Exams Ordered Rad Exams-Entire Visit: Radiology Procedures Category Date Time Status MRA BRAIN WITHOUT CONTRAST [MRI] Routine Exams 12/09/24 13:00 Completed MRA NECK WITH CONTRAST [MRI] Routine Exams 12/09/24 13:00 Completed MRI BRAIN WITH CONTRAST [MRI] Routine Exams 12/09/24 13:00 Completed Discharge Exam General Appearance: no apparent distress, alert Neurologic Exam: alert, oriented x 3, cooperative, room attendants II-XII nml as tested, normal mood/affect, nml cerebellar function, sensation nml, other (right sided facial pain per pt), No motor deficits Eye Exam: PERRL, EOMI, eyes nml inspection Ears, Nose, Throat Exam: normal ENT inspection, pharynx normal, moist mucous membranes Neck Exam: normal inspection, non-tender, supple, full range of motion Respiratory Exam: normal breath sounds, lungs clear, No respiratory distress Cardiovascular Exam: regular rate/rhythm, normal heart sounds Gastrointestinal/Abdomen Exam: soft, No tenderness, No mass Pelvic Exam: deferred Rectal Exam: deferred Back Exam: normal inspection, normal range of motion, No CVA tenderness, No vertebral tenderness Extremity Exam: normal inspection, normal range of motion Skin Exam: normal color, warm, dry Final Diagnosis/Problem List - Final Discharge Diagnosis/Problem (1) Trigeminal neuralgia Current Visit: Yes Status: Acute Code(s): G50.0 - TRIGEMINAL NEURALGIA (2) Intractable pain Current Visit: Yes Status: Resolved Code(s): R52 - PAIN, UNSPECIFIED (3) Diabetes mellitus Current Visit: Yes Status: Chronic Code(s): E11.9 - TYPE 2 DIABETES MELLITUS WITHOUT COMPLICATIONS (4) HTN (hypertension) Current Visit: Yes Status: Chronic Code(s): I10 - ESSENTIAL (PRIMARY) HYPERTENSION (5) History of DVT (deep vein thrombosis) Current Visit: Yes Status: Acute Code(s): Z86.718 - PERSONAL HISTORY OF OTHER VENOUS THROMBOSIS AND EMBOLISM (6) Obesity (BMI 30.0-34.9) Current Visit: Yes Status: Chronic Code(s): E66.811 - OBESITY, CLASS 1 (7) Confusion Current Visit: Yes Status: Acute Assessment & Plan: (1) Trigeminal neuralgia Current Visit: Yes Status: Acute Assessment & Plan: - Neurology note reviewed and agree with plan of care. - Meds changed per neuro recs - Pain resolved today - Continue IV steroids x3 days - narcotic pain med PRN - CBC, CMP reviewed - Pt refused surgery OP if recommended and will f/u with pain mgnt at d/c 12/10 - MRI and MRA reviewed: Impression: Occluded left A1 segment with remaining left BARBI supplied via anterior communicating artery. 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 Remaining MRA [place] is negative. - Discussed case with neurology and he added 81 mg ASA daily and pt to f/u OP with neurology since there is no acute neurological concern 12/11 - Tegretol reduced to 400 BID per neurology recs d/t sedation - Sedation from medication resolved -IV steroid today and then continue oral OP - F/U OP with neurology Code(s): G50.0 - TRIGEMINAL NEURALGIA (2) Intractable pain Current Visit: Yes Status: Resolved Assessment & Plan: - Pain resolved today - See plan above 12/11 - Pt reports some pain today but tolerable. - PT eval for home needs Code(s): R52 - PAIN, UNSPECIFIED (3) Diabetes mellitus Current Visit: Yes Status: Chronic Qualifiers: Diabetes mellitus type: type 2 Diabetes mellitus exterminator helper insulin use: w ithout exterminator helper use Diabetes mellitus complication status: without complication Qualified Code(s): E11.9 - Type 2 diabetes mellitus without complications Assessment & Plan: - A1c 6.19- controlled -ADA diet -SSI low dose -adjust as needed with steroids Code(s): E11.9 - TYPE 2 DIABETES MELLITUS WITHOUT COMPLICATIONS (4) HTN (hypertension) Current Visit: Yes Status: Chronic Qualifiers: Hypertension type: primary hypertension Qualified Code(s): I10 - Essential (primary) hypertension Assessment & Plan: - BP controlled - Continue home med Code(s): I10 - ESSENTIAL (PRIMARY) HYPERTENSION (5) History of DVT (deep vein thrombosis) Current Visit: Yes Status: Acute Assessment & Plan: -Continue home xarelto -Also h/o of PE Code(s): Z86.718 - PERSONAL HISTORY OF OTHER VENOUS THROMBOSIS AND EMBOLISM (6) Obesity (BMI 30.0-34.9) Current Visit: Yes Status: Chronic Assessment & Plan: - Advised ADA diet and exercise control Code(s): E66.811 - OBESITY, CLASS 1 (7) Confusion Current Visit: Yes Status: Acute Assessment & Plan: - Pt having acute confusion at night - Pt pulled out IV last night - Neurology re-consulted today as pt feels Tegretol dosing is too much and would like lowered. 12/11 - Resolved with lower dose of Tegretol Eval and mgnt d/c plan: 34 minutes Code(s): R41.0 - DISORIENTATION, UNSPECIFIED - Discharge Discharge Date: 12/11/24 Disposition: Home, Self-Care Condition: Stable Prescriptions: New Prednisone 20 mg [Deltasone 20 mg] 50 mg PO BID 3 Days #6 tablet Aspirin EC 81 mg [Ecotrin 81 mg] 81 mg PO DAILY 30 Days #30 tablet Carbamazepine 200 mg [Tegretol 200 MG] 400 mg PO BID 30 Days #60 tablet Prednisone 20 mg [Deltasone 20 mg] 0 mg PO DAILY 28 Days #162 tablet Continue Potassium Chloride [Klor-Con 10] 20 meq PO DAILY Metoprolol Succinate 25 mg Xl* [Toprol-Xl 25MG Tablets] 25 mg PO DAILY Esomeprazole Magnesium [Nexium] 40 mg PO DAILY Rivaroxaban [Xarelto] 20 mg PO DAILY #0 Metformin HCl 500 mg [Glucophage 500 MG] 500 mg PO HS Pregabalin [Lyrica] 200 mg PO TID hydroCHLOROthiazide [Hydrochlorothiazide] 12.5 mg PO DAILY Enalapril Maleate [Vasotec] 10 mg PO DAILY Semaglutide [Ozempic] 0.25 mg SQ WEEKLY Discontinued carBAMazepine [Carbamazepine] 200 mg PO BID Instructions: Trigeminal neuralgia, Preventing falls in adults Additional Instructions: USE YOUR WALKER AT ALL TIMES AT HOME [facility] HAS BEEN SET UP FOR YOU. THEY WILL CALL YOU TO ARRANGE A TIME TO COME SEE YOU. THEIR PHONE NUMBER IS [phone] IF YOU NEED ANYTHING PRIOR TO THEM CONTACTING YOU. if you find lidocaine patches helpful you can buy them OTC. Follow up with: MORGAN KUMAR MD [Primary Care Provider, INTERNAL MEDICINE] - 12/18/24 10:00 am Referral Note: [place] [facility]
[2024-12-11] MEDS: solu-MEDROL 80 MG, Sterile H2O 10 ml 2 ML IV SCH (08:19)
[2024-12-11] MEDS ORDERED: XYLOCAINE HCl Viscous MM PRN ×2 (08:35→09:05)
[2024-12-11] MEDS ORDERED: XYLOCAINE VISCOUS 2% 15 ML CUP MM PRN (08:59)
[2024-12-11 11:40] VITALS: BP 184/84; PULSE 65; RESP 20; TEMP 97.7; O2SAT 93
[2024-12-11 15:08] LABS: Immunoglobulin G, Qn 733 mg/dL (586-1602)
[2024-12-11 15:21] LABS: Immunoglobulin M, Qn 26 mg/dL (26-217)
[2024-12-11 19:08] LABS: Anti-MPO Antibodies <0.2 units (0.0-0.9); Anti-PR3 Antibodies <0.2 units (0.0-0.9)
[2024-12-14] MEDS ORDERED: DELTASONE 20 MG PO SCH (10:00)
== END 2024-12-11 16:32 | disposition home health service (06) | DRG 74 ==
LOC: ED 10:39 → MED SURG 15:00 → OBSVTOIN 12-08 10:16
PROVIDERS: ADMIT Internal Medicine; ATTEND Internal Medicine
DX: G50.0 Trigeminal neuralgia (principal); R52 Pain, unspecified; E11.9 Type 2 diabetes mellitus without complications; I10 Essential (primary) hypertension; E66.811 Obesity, class 1; R41.0 Disorientation, unspecified; Z86.718 Personal history of other venous thrombosis and embolism; Z79.899 Other long term (current) drug therapy; Z79.01 Long term (current) use of anticoagulants
CPT/HCPCS: 36415; 70544; 70548; 70552; 80048; 80053; 80156; 82164; 82232; 82607; 82784; 82947; 83036; 83516; 83521; 83735; 84165; 84443; 85025; 85027; 85652; 86037; 86038; 86140; 93268; 96374; 97161; 99285; G0378; Q3014